=== PATIENT | female | born 1960 | race Caucasian/White ===

== ENCOUNTER → 2021-05-23 | Outpatient (CLI) | payer SELFPAY ==
[~2021-05-23] MED LIST: REGADENOSON 0.4 MG/5 ML SYR (LEXISCAN) IV ONE
[2021-05-23] MEDS: CATHETER FLUSH 10 ML SYR IVP PRN ×2 (11:58→13:17)
[2021-05-23 13:01] VITALS: BP 146/75
--- NOTE | 2021-05-24 08:00 | NUCLEAR STRESS TEST ---
REGADENOSON NUCLEAR STRESS Date of procedure: 05/23/2021. Primary care provider: None Admitting physician: Balwinder Fernández Jr., MD. INDICATION: Abnormal electrocardiogram. BASELINE ELECTROCARDIOGRAM: Sinus rhythm with possible old anterior myocardial infarction. STRESS TEST PROCEDURE: The patient was administered 0.4 mg of intravenous Regadenoson. The resting heart rate was 85 bpm and the peak heart rate was 100 bpm. The resting blood pressure was 124/68 mmHg and the minimum blood pressure was 124/68 mmHg. This represents a normal heart rate and a blunted blood pressure response to Regadenoson. The test was stopped due to the protocol. There was no chest discomfort during the test. There were no arrhythmias during the test. There were no significant stress induced electrocardiogram changes. NUCLEAR PROCEDURE: The patient was administered 10.7 mCi of intravenous technetium 99m Tetrofosmin at rest for the rest images. The patient was subsequently administered 30.9 mCi of intravenous technetium 99m Tetrofosmin at peak stress for the stress images. Following an appropriate wait after each injection, imaging was obtained. The images were subsequently processed and reformatted in the usual views. Gated imaging was obtained. The image quality was adequate with a mild degree of gastrointestinal attenuation artifact. CT attenuation correction was used as a adjunct to standard imaging. Both the corrected and uncorrected images were reviewed for interpretation. NUCLEAR RESULTS: There was a small, mild intensity, fixed distal anterior defect with no evidence of inducible ischemia. There was normal left ventricular chamber size with an end-diastolic volume of 35 mL and an end-systolic volume of 6 mL. There was no evidence of transient ischemic dilatation. The TID ratio was 0.95. There was normal wall motion in all segments with a calculated ejection fraction of 83%. IMPRESSION: 1. Normal heart rate and a blunted blood pressure response to regadenoson. 2. There was no chest discomfort, arrhythmias, or electrocardiogram changes during the test. 3. There was a small, mild intensity, fixed distal anterior defect with no evidence of inducible ischemia. 4. There was normal wall motion in all segments with a calculated ejection frac tion of 83%. 5. This is an abnormal result although represents a low risk for possible future coronary ischemic events. Certain portions of this document may have been dictated utilizing voice recognition technology. Inherent to this technology, typographical and grammatical errors may exist. As much as I am diligent to identify and correct these mistakes, some errors may remain in the document. BALWINDER FERNÁNDEZ JR, MD May 24, 2021 08:00
== END ==
LOC: CARD 11:30
PROVIDERS: ATTEND Internal Medicine Cardiovascular Disease
DX: I51.7 Cardiomegaly (principal); I35.0 Nonrheumatic aortic (valve) stenosis
CPT/HCPCS: 78452; 93017; 93306; A9502

== ENCOUNTER 2022-10-09 18:09 | Observation (INO) | payer OTHER ==
[~2022-10-09] VITALS: Ht 170.2 cm; Wt 114.4 kg
[~2022-10-09 18:09] MED LIST changes: +ACET-2267 PO; +ALBU8.5H6 INH; +AMIO200T65 PO; +ASCO100024 PO; +ASPI-1238 PO; +ATOR20TA66 PO; +BUDE10.22 IH; +BUME2TAB7 PO; +CANA1TAB2 PO; +DULA0.75 SQ; +METO-333 PO; +OMEP-401 PO; +OXYC1TAB87 PO; +POTA-185 PO; -REGADENOSON 0.4 MG/5 ML SYR (LEXISCAN) IV ONE; +SENN-109 PO; +VILA40TA PO; +WARF-48 PO; +WARF7.5T3 PO
[2022-10-09] MEDS ORDERED: ANTACID SUSP 30 ML UDC (MYLANTA) PO PRN (18:30)
[2022-10-09] MEDS ORDERED: diphenhydrAMINE 25 MG TAB (BENADRYL) PO PRN (18:30)
[2022-10-09] MEDS ORDERED: ACETAMINOPHEN 325 MG TABLET PO PRN (18:30)
[2022-10-09] MEDS ORDERED: NS IV 500 ML 500 ML IV PRN (18:30)
[2022-10-09] MEDS ORDERED: MELATONIN 3 MG TABLET PO PRN (18:30)
[2022-10-09] MEDS ORDERED: polyethylene glycoL POWDER 17 GM (MIRALAX) PACK PO PRN (18:30)
[2022-10-09] MEDS ORDERED: LACTULOSE SYRUP 10GM/15ML (ENULOSE) 30ML UDC PO PRN (18:30)
[2022-10-09] MEDS ORDERED: MILK OF MAGNESIA 400 MG/5 ML 30 ML UDC PO PRN (18:30)
[2022-10-09] MEDS ORDERED: HYDROmorphone 2 MG/ML VIAL (DILAUDID) IV PRN (18:30)
[2022-10-09] MEDS ORDERED: diphenhydrAMINE 50 MG/ML INJ (BENADRYL) IVP PRN (18:30)
[2022-10-09] MEDS ORDERED: BISACODYL 10 MG SUPPOSITORY PR PRN (18:30)
[2022-10-09] MEDS ORDERED: ONDANSETRON 4 MG/2 ML (SDV) Z0FRAN IV PRN (18:30)
[2022-10-09] MEDS ORDERED: CALCIUM CARBONATE 500 MG CHEW TABLET PO PRN (18:30)
[2022-10-09] MEDS ORDERED: ONDANSETRON 4 MG (ZOFRAN) ORAL DISSOLVE TAB PO PRN (18:30)
[2022-10-09 19:25] VITALS: BP 101/85
[2022-10-09] MEDS: dilTIAZem DRIP PRE-MIX 125 ML IV SCH (19:25)
--- NOTE | 2022-10-09 20:07 | Tele-ICU Consult ---
History of Present Illness History of Present Illness Date Seen by Provider: Oct 09, 2022 Time Seen by Provider: 19:38 Date of Admission 10/09/22 History of Present Illness (Tele-ICU Physician , Progress Note ) Service provided via interactive audio and video tele[employer] and [employer] E-CARE system to a patient admitted to ICU bed in [facility]. Patient is seen today due to persistent need of ICU care Available chart/ vitals / labs / Images reviewed Video assessment done using teleICU camera, rest of exam as per RN She is a 62-year-old female with past medical history of hypertension, type 2 diabetes mellitus who recently underwent earlier this month mitral valve replacement for severe mitral stenosis and congestive heart failure at [facility] and postoperatively she developed productive atrial fibrillation. She was started on amiodarone and warfarin. Subsequently yesterday she is admitted to the inpatient rehab and via [facility]. Today she is transferred to ICU because of development of atrial fibrillation with rapid ventricular rate. She is started on IV Cardizem drip. Still her heart rate is about 120/min. She is in no acute distress Impression 1. Atrial fibrillation with rapid ventricular rate 2. S/p mitral valve replacement 3. Type 2 diabetes mellitus 4. Hyperlipidemia Recommendations 1. Continue Cardizem drip and if necessary will give IV digoxin 2. Cardiology consultation. 3. Diabetes management per primary care. 4. Continue warfarin. Coordination of care with primary care physician and bedside consultants. I am remotely monitoring this patient from Tele icu station in [place]. I am unable to do the bedside exam, and history/physical and pertinent information is taken from other notes in the computer and bedside staff. Certain portions of this document may have been dictated utilizing voice recognition technology such as tvCompasson. Inherent to this technology, typographical and grammatical errors may exist. As much as I am diligent to identify and correct to these mistakes, some errors may remain in the document. Critical care time devoted to this patient today is approximately is-30 minutes Allergies and Home Medications Allergies Coded Allergies: No Allergy Information Available (Unverified , 05/23/21) Home Medications Acetaminophen 500 Mg Tablet, 1,000 MG PO Q6H, (Reported) Albuterol Sulfate 90 Mcg Hfa.aer.ad, 1-2 PUFF INH TID PRN for SHORTNESS OF BREATH, (Reported) Amiodarone HCl 200 Mg Tablet, 400 MG PO DAILY, (Reported) 1/3 TAKE FOR 14 DAYS- THEN DECREASE TO 200MG TWICE DAILY X 14 DAYS, THEN 200MG DAILY X 14 DAYS TAKE WITH FOOD Amiodarone HCl 200 Mg Tablet, 200 MG PO BID, (Reported) 2/3 TAKE FOR 14 DAYS THEN DECREASE TO 200MG DAILY X 14 DAYS TAKE WITH FOOD Amiodarone HCl 200 Mg Tablet, 200 MG PO DAILY, (Reported) 3/3 TAKE FOR 14 DAYS TAKE WITH FOOD Ascorbic Acid 1,000 Mg Tablet, 1,000 MG PO DAILY, (Reported) Aspirin 81 Mg Tablet.dr, 81 MG PO DAILY, (Reported) Atorvastatin Calcium 20 Mg Tablet, 20 MG PO HS, (Reported) Budesonide/Formoterol Fumarate 80 Mcg-4.5 Mcg/Actuation Hfa.aer.ad, 2 PUFF IH BID, (Reported) Bumetanide 2 Mg Tablet, 2 MG PO BID, (Reported) Canagliflozin/Metformin HCl 50 Mg-1,000 Mg Tablet, 1 EACH PO BID, (Reported) Dulaglutide 0.75 Mg/0.5 Ml Pen.injctr, 0.75 MG SQ WEEK, (Reported) Metoprolol Tartrate 25 Mg Tablet, 12.5 MG PO BID, (Reported) TAKES OF A 25MG TAB Omeprazole 20 Mg Tab.rap.dr, 20 MG PO DAILY, (Reported) TAKE BEFORE BREAKFAST Oxycodone HCl/Acetaminophen 1 Each Tablet, 1-2 TAB PO Q6H PRN for PAIN-MODERATE (5-7), (Reported) Potassium Chloride 10 Meq Tablet.er, 10 MEQ PO BID, (Reported) Sennosides/Docusate Sodium 8.6 Mg-50 Mg Tablet, 2 EACH PO BID, (Reported) Vilazodone Hydrochloride 40 Mg Tablet, 40 MG PO DAILY, (Reported) Warfarin Sodium 5 Mg Tablet, 5 MG PO ESQUIVEL,SA, (Reported) Warfarin Sodium 7.5 Mg Tablet, 7.5 MG PO MO,,WE,TH,FR, (Reported) Past Medical/Social/Family Hx Immunizations Up To Date Tetanus Booster (TDap): Unknown Hepatitis A: No Hepatitis B: Yes TB Skin Test: None Current Status Primary Language: [place] Irish Review of Systems Constitutional: see HPI Focused Exam Height, Weight, BMI Height: '" Weight: lbs. oz. kg; 41.59 BMI Method: Exam Exam Patient acknowledged, consented, and participated in this virtual visit which was conducted using real time audio/video Vital Signs Date Time Temp Pulse Resp B/P (MAP) Pulse Ox O2 Delivery O2 Flow Rate FiO2 10/09/22 19:25 130 101/85 10/09/22 19:00 130 16 101/85 (90) 96 Room Air 10/09/22 18:45 130 16 72/53 (59) 96 Room Air 10/09/22 18:30 123 14 88/68 (75) 98 Room Air 10/09/22 18:20 132 10/09/22 18:20 132 10/09/22 18:15 115 14 124/110 (115) 98 Room Air Height & Weight Height: '" Weight: lbs. oz. kg; 41.59 BMI Method: General Appearance: Anxious, Obese Assessment/Plan Assessment/Plan as above Critical Care: Critically Ill Patient Time spent with patient (mins): 30 SNEHA GOLDSTEIN MD Oct 09, 2022 20:07
--- NOTE | 2022-10-09 21:00 | Consultation-Cardiology ---
HPI-Cardiology Cardiology Consultation: Date of Consultation 10/09/22 Date of Admission Attending Physician Admitting Physician Admitting Physician: Kenna Grant DO Attending Physician: Kenna Grant DO Consulting Physician Gary LANGFORD MD HPI: Time Seen by a Provider: 20:59 Chief Complaint: Tachycardia This is a 62-year-old lady who has history of severe mitral stenosis and congestive heart failure and underwent mitral valve replacement a week ago at [facility]. She does have history of postoperative atrial fibrillation. She has a history of diabetes, hypertension and hyperlipidemia. She had an episode of atrial fibrillation with RVR and currently still in RVR. She was started on IV Cardizem and transferred to the ICU. Review of Systems-Cardiology Review of Systems Constitutional: no symptoms reported Eyes: no symptoms reported Ears/Nose/Throat: no symptoms reported Respiratory: SOB with excertion Cardiovascular: irregular heart rate Gastrointestinal: no symptoms reported Genitourinary: no symptoms reported Musculoskeletal: no symptoms reported Skin: no symptoms reported Psychiatric/Neurological: no symptoms reported Hematologic: no symptoms reported HPA-Burnlh-Sqhzxg Hx Patient Social History Smoking Status: Former Smoker Alcohol Use?: No Pt feels they are or have been: No Past Medical History PMH As described under Assessment. Allergies and Home Medications Allergies Coded Allergies: No Allergy Information Available (Unverified , 05/23/21) Patient Home Medication List Home Medication List Reviewed: Yes Acetaminophen (Tylenol Extra Strength) 500 Mg Tablet, 1,000 MG PO Q6H, (Reported) Entered as Reported by: BREANN SMALL on 10/08/22930 Last Action: Held Albuterol Sulfate (Ventolin Hfa) 90 Mcg Hfa.aer.ad, 1-2 PUFF INH TID PRN for SHORTNESS OF BREATH, (Reported) Entered as Reported by: BREANN SMALL on 10/08/22930 Last Action: Continued Amiodarone HCl (Amiodarone HCl) 200 Mg Tablet, 400 MG PO DAILY, (Reported) Entered as Reported by: BREANN SMALL on 10/08/22930 Last Action: Held Amiodarone HCl (Amiodarone HCl) 200 Mg Tablet, 200 MG PO BID, (Reported) Entered as Reported by: BREANN SMALL on 10/08/22930 Last Action: Held Amiodarone HCl (Amiodarone HCl) 200 Mg Tablet, 200 MG PO DAILY, (Reported) Entered as Reported by: BREANN SMALL on 10/08/22930 Last Action: Held Ascorbic Acid (Vitamin C) 1,000 Mg Tablet, 1,000 MG PO DAILY, (Reported) Entered as Reported by: BREANN SMALL on 10/08/22930 Last Action: Held Aspirin (Aspirin EC) 81 Mg Tablet.dr, 81 MG PO DAILY, (Reported) Entered as Reported by: BREANN SMALL on 10/08/22930 Last Action: Continued Atorvastatin Calcium (Atorvastatin Calcium) 20 Mg Tablet, 20 MG PO HS, (Reported) Entered as Reported by: BREANN SMALL on 10/08/22930 Last Action: Continued Budesonide/Formoterol Fumarate (Symbicort 80-4.5 Mcg Inhaler) 80 Mcg-4.5 Mcg/Actuation Hfa.aer.ad, 2 PUFF IH BID, (Reported) Entered as Reported by: BREANN SMALL on 10/08/22930 Last Action: Converted Bumetanide (Bumetanide) 2 Mg Tablet, 2 MG PO BID, (Reported) Entered as Reported by: BREANN SMALL on 10/08/22930 Last Action: Converted Canagliflozin/Metformin HCl (Invokamet 50-1,000 mg Tablet) 50 Mg-1,000 Mg Tablet, 1 EACH PO BID, (Reported) Entered as Reported by: BREANN SMALL on 10/08/22930 Last Action: Converted Dulaglutide (Trulicity) 0.75 Mg/0.5 Ml Pen.injctr, 0.75 MG SQ WEEK, (Reported) Entered as Reported by: BREANN SMALL on 10/08/22930 Last Action: Converted Metoprolol Tartrate (Metoprolol Tartrate) 25 Mg Tablet, 12.5 MG PO BID, (Reported) Entered as Reported by: BREANN SMALL on 10/08/22930 Last Action: Held Omeprazole (Omeprazole) 20 Mg Tab.rap.dr, 20 MG PO DAILY, (Reported) Entered as Reported by: BREANN SMALL on 10/08/22930 Last Action: Converted Oxycodone HCl/Acetaminophen (Percocet 5-325 mg Tablet) 1 Each Tablet, 1-2 TAB PO Q6H PRN for PAIN-MODERATE (5-7), (Reported) Entered as Reported by: BREANN SMALL on 10/08/22930 Last Action: Continued Potassium Chloride (K-Tab ER) 10 Meq Tablet.er, 10 MEQ PO BID, (Reported) Entered as Reported by: BREANN SMALL on 10/08/22930 Last Action: Continued Sennosides/Docusate Sodium (Senna-S Tablet) 8.6 Mg-50 Mg Tablet, 2 EACH PO BID, (Reported) Entered as Reported by: BREANN SMALL on 10/08/22930 Last Action: Continued Vilazodone Hydrochloride (Viibryd) 40 Mg Tablet, 40 MG PO DAILY, (Reported) Entered as Reported by: BRAENN SMALL on 10/08/22930 Last Action: Converted Warfarin Sodium (Warfarin Sodium) 5 Mg Tablet, 5 MG PO ESQUIVEL,SA, (Reported) Entered as Reported by: BREANN SMALL on 10/08/22930 Last Action: Held Warfarin Sodium (Warfarin Sodium) 7.5 Mg Tablet, 7.5 MG PO MO,TU,WE,TH,FR, (Reported) Entered as Reported by: BREANN SMALL on 10/08/22930 Last Action: Held Exam Vital Signs Vital Signs Date Time Temp Pulse Resp B/P (MAP) Pulse Ox O2 Delivery O2 Flow Rate FiO2 10/09/22 21:06 115 96 21 10/09/22 20:54 Room Air 10/09/22 19:25 101/85 10/09/22 19:00 16 Physical Exam Constitutional: No respiratory distress. Chest: Clear to auscultation bilaterally. CVS: Irregularly irregular rhythm. No murmur. Neuro: Alert and oriented. Abdomen: Protuberant. Labs Laboratory Tests Test 10/09/22 21:10 Range/Units Glucometer 144 H 70-110 MG/DL ECG Impression ECG Initial ECG Impression: Atrial Fibrillation w/RVR A/P-Cardiology Assessment/Admission Diagnosis afib rvr h/o mvr Mitral stenosis, History of congestive heart failure, Diabetes, Hypertension, Hyperlipidemia Plan afib rvr - cardizem infusion, Continue warfarin. Patient is already on amiodarone. Continue to follow. If patient continues to have atrial fibrillation she may be a candidate for transesophageal echocardiogram assisted cardioversion. history of MVR, Chronic oral anticoagulation, continue warfarin. Diabetes, hypertension, hyperlipidemia: Deferred to the primary team. Gary LANGFORD MD Oct 09, 2022 21:00
[2022-10-09] MEDS: DOCUSATE SODIUM 100 MG (COLACE) CAP PO SCH (21:14)
[2022-10-09] MEDS: SENNOSIDES 8.6 MG (SENOKOT) TAB PO SCH (21:15)
[2022-10-09] MEDS: inSUlin ASPART (NovoLOG) 1 UNIT/0.01 ML (CHARGE PER UNIT) SC SCH (21:15)
[2022-10-09] MEDS ORDERED: oxyCODONE/APAP 5/325MG (PERCOCET 5) TABLET PO PRN (21:15)
[2022-10-09] MEDS ORDERED: RT-ALBUTEROL SULF 2.5 MG/3 ML PRE-MIX VIAL INH PRN ×2 (21:15)
[2022-10-09] MEDS ORDERED: NON-FORMULARY MEDICATION 1 EA EA (Dulaglutide (Trulicity) 0.75 MG) SQ SCH (21:15)
[2022-10-10 05:45] LABS: BASOPHILS # (AUTO) 0.1 10^3/uL (0.0-0.1); BASOPHILS % (AUTO) 1 % (0-10); EOSINOPHILS # (AUTO) 0.6 10^3/uL (0.0-0.3); EOSINOPHILS % (AUTO) 6 % (0-10); HEMATOCRIT 30 % (35-52); HEMOGLOBIN 8.6 g/dL (11.5-16.0); LYMPHOCYTES # (AUTO) 2.3 10^3/uL (1.0-4.0); LYMPHOCYTES % (AUTO) 20 % (12-44); MEAN CORPUSCULAR HEMOGLOBIN 26 pg (25-34); MEAN CORPUSCULAR HGB CONC 29 g/dL (32-36); MEAN CORPUSCULAR VOLUME 89 fL (80-99); MEAN PLATELET VOLUME 9.3 fL (9.0-12.2); MONOCYTES # (AUTO) 1.1 10^3/uL (0.0-1.0); MONOCYTES % (AUTO) 10 % (0-12); NEUTROPHILS # (AUTO) 7.1 10^3/uL (1.8-7.8); NEUTROPHILS % (AUTO) 63 % (42-75); PLATELET COUNT 308 10^3/uL (130-400); WHITE BLOOD COUNT 11.3 10^3/uL (4.3-11.0)
[2022-10-10 05:54] LABS: ALBUMIN 3.3 GM/DL (3.2-4.5); POTASSIUM 4.4 MMOL/L (3.6-5.0)
[2022-10-10 05:55] LABS: CALCIUM 9.2 MG/DL (8.5-10.1)
[2022-10-10 05:57] LABS: TOTAL PROTEIN 6.3 GM/DL (6.4-8.2)
[2022-10-10 05:58] LABS: INR 2.2 (0.8-1.4); PROTHROMBIN TIME PATIENT 24.6 SEC (12.2-14.7)
[2022-10-10 05:59] LABS: BILIRUBIN,TOTAL 0.7 MG/DL (0.1-1.0)
[2022-10-10 06:00] LABS: CREATININE SERUM 1.12 MG/DL (0.60-1.30)
[2022-10-10 06:03] LABS: MAGNESIUM 1.5 MG/DL (1.6-2.4)
[2022-10-10] MEDS: inSUlin ASPART (NovoLOG) 1 UNIT/0.01 ML (CHARGE PER UNIT) SC SCH ×4 (06:15→20:53)
[2022-10-10] MEDS: POTASSIUM CL 10MEQ/50ML IVPB 50 ML IV SCH (06:15)
[2022-10-10] MEDS: MAGNESIUM 1 GM/100 ML IVPB 100 ML IV SCH ×4 (06:15→09:36)
[2022-10-10] MEDS: KCL 20 MEQ TAB (K-DUR) PO SCH (06:15)
[2022-10-10] MEDS: PANTOPRAZOLE 20 MG TABLET (PROTONIX) PO SCH (06:30)
[2022-10-10] MEDS ORDERED: FLUTICASONE/VILANTEROL 100 MCG 14'S (BREO) IH SCH (08:00)
[2022-10-10] MEDS: ASPIRIN enteric coated 81MG TABLET PO SCH (08:05)
[2022-10-10] MEDS: DOCUSATE SODIUM 100 MG (COLACE) CAP PO SCH ×2 (08:05→20:53)
[2022-10-10] MEDS: SENNA W/DOCUSATE (SENOKOT S) TABLET PO SCH ×2 (08:06→20:53)
[2022-10-10] MEDS: BUMETANIDE 1 MG TABLET PO SCH ×2 (08:06→20:39)
[2022-10-10] MEDS: EMPAGLIFLOZIN 10 MG TABLET (JARDIANCE) PO SCH (08:07)
[2022-10-10] MEDS: KCL 10 MEQ TAB (MICRO K) PO SCH ×2 (08:07→20:38)
[2022-10-10] MEDS: metFORMIN 500 MG (GLUCOPHAGE) TAB PO SCH ×2 (08:07→18:11)
[2022-10-10] MEDS: SENNOSIDES 8.6 MG (SENOKOT) TAB PO SCH ×2 (08:07→20:53)
[2022-10-10] MEDS: dilTIAZem120 MG (CARDIZEM CD) CAP PO SCH (08:09)
[2022-10-10] MEDS ORDERED: METFORMIN HCL PO SCH (09:00)
[2022-10-10] MEDS ORDERED: [UNRECOGNIZED DRUG - OTHER] PO SCH (09:00)
[2022-10-10] MEDS ORDERED: NON-FORMULARY MEDICATION 1 EA EA (Vilazodone Hydrochloride (Viibryd) 40 MG) PO SCH (09:00)
[2022-10-10] MEDS ORDERED: CANAGLIFLOZIN PO SCH (09:00)
[2022-10-10] MEDS ORDERED: CANA1TAB8 PO (10:57)
[2022-10-10] MEDS ORDERED: IRON SUCROSE 200 MG/10 ML (VENOFER) VIAL IV NR (11:00)
--- NOTE | 2022-10-10 11:26 | Tele-ICU Progress Note ---
Subjective Date Seen by a Provider: Oct 10, 2022 Time Seen by a Provider: 11:26 Subjective/Events-last exam (Tele-ICU Physician , Progress Note ) Service provided via interactive audio and video telecommunications E-CARE system to a patient admitted to ICU bed in [facility]. Patient is seen today due to persistent need of ICU care Available chart/ vitals / labs / Images reviewed Video assessment done using teleICU camera, rest of exam as per RN Discussed with RN Events overnight : Afebrile hemodynamically stable Respiratory - ra I/O = + Drips: Pressors- no Hospital course: This is a 62-year-old lady who has history of severe mitral stenosis and congestive heart failure and underwent mitral valve replacement a week ago at [facility]. She does have history of postoperative atrial fibrillation. She has a history of diabetes, hypertension and hyperlipidemia. She had an episode of atrial fibrillation with RVR - currently off IV Cardizem, on PO meds h/o MVR History of congestive heart failure, DM II = controlled wound service for sternal wound care VTE Prophylaxis: coumadin Stress Ulcer Prophylaxis: na Plans in collaboration with bedside consultants and IM MDs. Discussed with RN to reach out if any questions or concerns Case and care daily discussed on multidisciplinary rounds ( RN, PharmD, Bundle Helper , Respiratory Therapy, handy worker ) A total of _10minutes of critical care time was devoted to this patient today, required to treat and/or prevent further deterioration of critical care condition ( as above ) . I am remotely monitoring this patient from [place] state. I am unable to do the bedside exam, and history/physical and pertinent information is taken from other notes in the computer and bedside staff. Sepsis Event Evaluation Height, Weight, BMI Height: '" Weight: lbs. oz. kg; 41.59 BMI Method: Exam Exam Patient acknowledged, consented, and participated in this virtual visit which was conducted using real time audio/video Vital Signs Date Time Temp Pulse Resp B/P (MAP) Pulse Ox O2 Delivery O2 Flow Rate FiO2 10/10/22 11:00 85 97 Room Air 10/10/22 10:00 85 97 Room Air 10/10/22 09:18 97 Room Air 10/10/22 09:00 81 94 Room Air 10/10/22 08:16 36.3 10/10/22 08:00 85 92 Room Air 10/10/22 08:00 98 Room Air 10/10/22 07:00 85 111/75 (87) 95 Room Air 10/10/22 07:00 82 10/10/22 06:00 79 100 Room Air 10/10/22 05:00 80 124/70 (88) 100 Room Air 10/10/22 04:00 81 118/71 (87) 100 Room Air 10/10/22 04:00 36.4 10/10/22 04:00 100 Room Air 10/10/22 03:00 80 124/75 (91) 100 Room Air 10/10/22 02:39 72 10/10/22 02:00 125 112/76 (88) 100 Room Air 10/10/22 01:00 124 10/10/22 01:00 118 116/81 (93) 100 Room Air 10/10/22 00:00 36.3 10/10/22 00:00 116 114/77 (89) 100 Room Air 10/09/22 23:00 118 100/69 (79) 100 Room Air 10/09/22 22:00 124 14 100/63 (75) 99 Room Air 10/09/22 21:06 115 96 21 10/09/22 21:00 131 19 100/70 (80) 99 Room Air 10/09/22 20:54 Room Air 10/09/22 20:00 130 16 103/78 (86) 99 Room Air 10/09/22 19:25 130 101/85 10/09/22 19:00 130 16 101/85 (90) 96 Room Air 10/09/22 19:00 135 10/09/22 18:45 130 16 72/53 (59) 96 Room Air 10/09/22 18:30 123 14 88/68 (75) 98 Room Air 10/09/22 18:20 132 10/09/22 18:20 132 10/09/22 18:15 115 14 124/110 (115) 98 Room Air 10/09/22 18:11 96 Room Air I & O 10/10/22 07:00 Intake Total 485 ml Balance 485 ml Height & Weight Height: '" Weight: lbs. oz. kg; 41.59 BMI Method: General Appearance: Anxious, Obese Results Lab Laboratory Tests 10/10/22 05:27 Assessment/Plan Assessment/Plan 1 MAGDY BUNCH MD Oct 10, 2022 11:26
--- NOTE | 2022-10-10 12:35 | Short Stay Summary ---
LOLA MANNING 10/10/22 1235: History of Present Illness History of Present Illness Reason for visit/HPI Aleah Epperson is a 62yo F who was a patient on the inpatient rehab unit before developing palpitations and tachycardia on the evening of 10/09. She was found to be in afib with RVR and transferred to the ICU. 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 She was hospitalized at in late August after experiencing progressively worsening shortness of breath, swelling, and weight gain. She was extensively volume overloaded and required dialysis as an inpatient. She was initially diagnosed with mitral valve stenosis in may of 2021 and was started on warfarin due to level of stenosis but was lost to follow up. Her symptoms began worsening in early August 2022 which ultimately lead to her admission to . She required hemodynamic support while hospitalized and undergoing dialysis as well with milrinone and vasopressin. After successful volume normalization and achieving hemodynamic stability she underwent tissue Mitral valve replacement on September 30. She developed atrial fibrillation after her procedure and was started on amiodarone with conversion to sinus rhythm. Today she reports much improvement of her shortness of breath and peripheral edema since her hospitalization. She denies chest pain aside from tenderness at her surgical site. She denies palpitations. Reports her lower extremity edema is back to prehospital baseline, trace edema present bilaterally. She is tolerating diet without N/V/D. Denies fevers and chills." She was doing well on the inpatient rehab unit and progressing with therapy until the evening of 10/09 when she began to feel palpitations and tachycardia. She called the nurse who confirmed a fast heart rate. EKG shortly after revealed her to be in atrial fibrillation with rapid ventricular response, rate in the 130s. Arrangements were made for her to be transferred to the ICU. She was started on a cardizem drip and converted to sinus rhythm with rate in the 80s overnight. On my exam she remained in sinus rhythm with rate anywhere from 75- 85. The drip was stopped and she was given her first dose of oral cardizem this morning. She denies any more palpitations and does not have chest pain, shortness of breath, lightheadedness, syncope, or fever/chills. She has a history of afib with rvr around her mitral valve replacement surgery. She does not believe she was cardioverted at that time. She has been on an amiodarone taper since with no other episodes of palpitations. She is in good spirits this morning but is somewhat dejected because she thought she was improving in rehab and does not want any more setbacks. She is tolerating her diet without N/V/D. Denies any abdominal pain. She reports willingness to return to inpatient rehab soon pending insurance approval. Date of Admission Oct 09, 2022 at 18:09 Date of Discharge Oct 10, 2022 Time Seen by Provider: 11:05 Attending Physician Admitting Physician Admitting Physician: Kenna Guajardo DO Attending Physician: Kenna Guajardo DO Consult Allergies and Home Medications Allergies Coded Allergies: No Allergy Information Available (Unverified , 05/23/21) Patient Home Medication List Home Medication List Reviewed: Yes Acetaminophen (Tylenol Extra Strength) 500 Mg Tablet, 1,000 MG PO Q6H, (Reported) Entered as Reported by: BREANN SMALL on 10/08/22930 Last Action: Held Albuterol Sulfate (Ventolin Hfa) 90 Mcg Hfa.aer.ad, 1-2 PUFF INH TID PRN for SHORTNESS OF BREATH, (Reported) Entered as Reported by: BREANN SMALL on 10/08/22930 Last Action: Continued Amiodarone HCl (Amiodarone HCl) 200 Mg Tablet, 400 MG PO DAILY, (Reported) Entered as Reported by: BREANN SMALL on 10/08/22930 Last Action: Held Amiodarone HCl (Amiodarone HCl) 200 Mg Tablet, 200 MG PO BID, (Reported) Entered as Reported by: BREANN SMALL on 10/08/22930 Last Action: Held Amiodarone HCl (Amiodarone HCl) 200 Mg Tablet, 200 MG PO DAILY, (Reported) Entered as Reported by: BREANN SMALL on 10/08/22930 Last Action: Held Ascorbic Acid (Vitamin C) 1,000 Mg Tablet, 1,000 MG PO DAILY, (Reported) Entered as Reported by: BREANN SMALL on 10/08/22930 Last Action: Held Aspirin (Aspirin EC) 81 Mg Tablet.dr, 81 MG PO DAILY, (Reported) Entered as Reported by: BREANN SMALL on 10/08/22930 Last Action: Continued Atorvastatin Calcium (Atorvastatin Calcium) 20 Mg Tablet, 20 MG PO HS, (Reported) Entered as Reported by: BREANN SMALL on 10/08/22930 Last Action: Continued Budesonide/Formoterol Fumarate (Symbicort 80-4.5 Mcg Inhaler) 80 Mcg-4.5 Mcg/Actuation Hfa.aer.ad, 2 PUFF IH BID, (Reported) Entered as Reported by: BREANN SMALL on 10/08/22930 Last Action: Converted Bumetanide (Bumetanide) 2 Mg Tablet, 2 MG PO BID, (Reported) Entered as Reported by: BREANN SMALL on 10/08/22930 Last Action: Converted Canagliflozin/Metformin HCl (Invokamet Xr 150-1,000 mg Tab) 150 Mg-1,000 Mg Tab.bp.24h, 1 EA PO DAILY, (Reported) Entered as Reported by: BREANN SMALL on 10/10/221056 Last Action: Reviewed Dulaglutide (Trulicity) 0.75 Mg/0.5 Ml Pen.injctr, 0.75 MG SQ WEEK, (Reported) Entered as Reported by: BREANN SMALL on 10/08/22930 Last Action: Converted Metoprolol Tartrate (Metoprolol Tartrate) 25 Mg Tablet, 12.5 MG PO BID, (Reported) Entered as Reported by: BREANN SMALL on 10/08/22930 Last Action: Held Omeprazole (Omeprazole) 20 Mg Tab.rap., 20 MG PO DAILY, (Reported) Entered as Reported by: BREANN SMALL on 10/08/22930 Last Action: Converted Oxycodone HCl/Acetaminophen (Percocet 5-325 mg Tablet) 1 Each Tablet, 1-2 TAB PO Q6H PRN for PAIN-MODERATE (5-7), (Reported) Entered as Reported by: BREANN SMALL on 10/08/22930 Last Action: Continued Potassium Chloride (K-Tab ER) 10 Meq Tablet.er, 10 MEQ PO BID, (Reported) Entered as Reported by: BREANN SMALL on 10/08/22930 Last Action: Continued Sennosides/Docusate Sodium (Senna-S Tablet) 8.6 Mg-50 Mg Tablet, 2 EACH PO BID, (Reported) Entered as Reported by: BREANN SMALL on 10/08/22930 Last Action: Continued Vilazodone Hydrochloride (Viibryd) 40 Mg Tablet, 40 MG PO DAILY, (Reported) Entered as Reported by: BREANN SMALL on 10/08/22930 Last Action: Converted Warfarin Sodium (Warfarin Sodium) 5 Mg Tablet, 5 MG PO ESQUIVEL,SA, (Reported) Entered as Reported by: BREANN SMALL on 10/08/22930 Last Action: Held Warfarin Sodium (Warfarin Sodium) 7.5 Mg Tablet, 7.5 MG PO MO,,,,FR, (Reported) Entered as Reported by: BREANN SMALL on 10/08/22930 Last Action: Held Discontinued Medications Canagliflozin/Metformin HCl (Invokamet 50-1,000 mg Tablet) 50 Mg-1,000 Mg Tablet, 1 EACH PO BID, (Reported) Discontinued Reason: No Longer Taking Entered as Reported by: BREANN SMALL on 10/08/22930 Last Action: Discontinued Past Wwthsjr-Tottty-Pwbumy Hx Patient Social History Smoking Status: Former Smoker Alcohol Use?: No Pt feels they are or have been: No Surgeries Open Heart Surgery Respiratory COPD, Sleep Apnea Currently Using CPAP: No Currently Using BIPAP: No Cardiovascular Atrial Fibrillation, Coronary Artery Disease, High Cholesterol, Hypertension, Valvular Heart Disease Neurological Neuropathy Genitourinary Bladder Infection Gastrointestinal Gastroesophageal Reflux Musculoskeletal Arthritis, Chronic Back Pain Endocrine Endocrine Disorders: Diabetes, Non-Insulin dep Psychosocial Behavioral Health Disorders: Anxiety, Depression Family Medical History Significant Family History: Heart Disease Review of Systems Constitutional: No chills, No diaphoresis, No fever EENTM: No hearing loss, No vision loss, No hoarseness Respiratory: No cough, No short of breath, No wheezing Cardiovascular: No chest pain; Hx of Intervention; No palpitations, No syncope Gastrointestinal: No abdominal pain; loss of appetite; No nausea, No vomiting Genitourinary: No dysuria, No hematuria Skin: No change in color, No change in hair/nails Psychiatric/Neurological: Denies Headache, Denies Pre-Existing Deficit, Denies Weakness Physical Exam Vital Signs Vital Signs - First Documented 10/09/22 10/09/22 10/09/22 10/10/22 18:11 18:15 21:06 00:00 Temp 36.3 Pulse 115 Resp 14 B/P (MAP) 124/110 (115) Pulse Ox 96 O2 Delivery Room Air FiO2 21 Capillary Refill : Height, Weight, BMI Height: '" Weight: lbs. oz. kg; 41.59 BMI Method: General Appearance: No Apparent Distress, WD/WN, Anxious, Obese HEENT: PERRL/EOMI, Moist Mucous Membranes Neck: Non Tender, Supple Respiratory: Lungs Clear, Normal Breath Sounds, No Accessory Muscle Use, No Respiratory Distress Cardiovascular: Regular Rate, Rhythm, Normal Peripheral Pulses Gastrointestinal: Non Tender, Soft; No Distended Rectal: Deferred Extremity: Pedal Edema (2+ bl lower extremity) Neurologic/Psychiatric: Alert, Oriented x3, Normal Mood/Affect Skin: Normal Color, Warm/Dry Short Stay Diagnosis Discharge Diagnosis-Short Stay Admission Diagnosis: Atrial Fibrillation with Rapid Ventricular Response CHF myopathy Recent Mitral Valve replacement Final Discharge Diagnosis: Afib with RVR CHF myopathy Recent mitral valve replacement Conclusion Labs Laboratory Tests 10/09/22 21:10: Glucometer 144H 10/10/22 05:27: White Blood Count 11.3H, Red Blood Count 3.31L, Hemoglobin 8.6L, Hematocrit 30L, Mean Corpuscular Volume 89, Mean Corpuscular Hemoglobin 26, Mean Corpuscular Hemoglobin Concent 29L, Red Cell Distribution Width 27.1H, Platelet Count 308, Mean Platelet Volume 9.3, Immature Granulocyte % (Auto) 1, Neutrophils (%) (Auto) 63, Lymphocytes (%) (Auto) 20, Monocytes (%) (Auto) 10, Eosinophils (%) (Auto) 6, Basophils (%) (Auto) 1, Neutrophils # (Auto) 7.1, Lymphocytes # (Auto) 2.3, Monocytes # (Auto) 1.1H, Eosinophils # (Auto) 0.6H, Basophils # (Auto) 0.1, Immature Granulocyte # (Auto) 0.1, Prothrombin Time 24.6H, INR Comment 2.2H, Sodium Level 137, Potassium Level 4.4, Chloride Level 100, Carbon Dioxide Level 25, Anion Gap 12, Blood Urea Nitrogen 40H, Creatinine 1.12, Estimat Glomerular Filtration Rate 56, BUN/Creatinine Ratio 36, Glucose Level 118H, Calcium Level 9.2, Corrected Calcium 9.8, Phosphorus Level 4.0, Magnesium Level 1.5L, Total Bilirubin 0.7, Aspartate Amino Transf (AST/SGOT) 28, Alanine Aminotransferase (ALT/SGPT) 16, Alkaline Phosphatase 60, Total Protein 6.3L, Albumin 3.3 10/10/22 10:43: Glucometer 104 Conclusion/Plan Atrial fibrillation with RVR Cardiology consulted appreciate recs Rate in the 130s when admitted to ICU Started on cardizem drip with conversion to normal sinus rhythm Drip stopped, started on Cardizem 120mg PO daily remains sinus Anticoagulated with warfarin, recently increased to 6.5 daily due to subtherapuetic INR monitor INR, goal of 2.5-3.5 due to mitral valve replacement Continue tele Was in the middle of an amiodarone taper after her first bout of afib with RVR at earlier this month CHF myopathy S/p MVR Chronic HFpEF Intense PT/OT Social work following for discharge planning Currently hemodynamically stable, monitor vitals Continue Bumex 2mg BID, metoprolol 12.5mg BID, aspirin 81 mg daily, atorvastatin 20mg daily Monitor CBC, CMP, PT, INR Encourage LE elevation and LE compression Sodium restricted diet 2gm per day Sternal wound precautions HTN HLD home meds as above T2DM Continue canagliflozin/metfomin, and dulaglutide accuchecks SSI COPD JF Satting well on room air Does not tolerate CPAP machine use Daily Breo Ellipta Albuterol prn Depression continue viibryd 40mg daily Diet- carb consistent with sodium restriction DVT ppx- anticoagulated with warfarin, continue to monitor INR Code- full code Dispo- attempting to readmit to inpatient rehab. Waiting on transfer vs having to complete insurance acceptance process over again KENNA GUAJARDO DO 10/10/222050: History of Present Illness History of Present Illness Reason for visit/HPI CC: AF RVR Date of Admission 10/10/22 Date of Discharge na Time Seen by Provider: 11:00 Allergies and Home Medications Allergies Coded Allergies: No Allergy Information Available (Unverified , 05/23/21) Patient Home Medication List Home Medication List Reviewed: Yes Acetaminophen (Tylenol Extra Strength) 500 Mg Tablet, 1,000 MG PO Q6H, (Reported) Entered as Reported by: BREANN SMALL on 10/08/22930 Last Action: Held Albuterol Sulfate (Ventolin Hfa) 90 Mcg Hfa.aer.ad, 1-2 PUFF INH TID PRN for SHORTNESS OF BREATH, (Reported) Entered as Reported by: BREANN SMALL on 10/08/22930 Last Action: Continued Amiodarone HCl (Amiodarone HCl) 200 Mg Tablet, 400 MG PO DAILY, (Reported) Entered as Reported by: BREANN SMALL on 10/08/22930 Last Action: Held Amiodarone HCl (Amiodarone HCl) 200 Mg Tablet, 200 MG PO BID, (Reported) Entered as Reported by: BREANN SMALL on 10/08/22930 Last Action: Held Amiodarone HCl (Amiodarone HCl) 200 Mg Tablet, 200 MG PO DAILY, (Reported) Entered as Reported by: BREANN SMALL on 10/08/22930 Last Action: Held Ascorbic Acid (Vitamin C) 1,000 Mg Tablet, 1,000 MG PO DAILY, (Reported) Entered as Reported by: RBEANN SMALL on 10/08/22930 Last Action: Held Aspirin (Aspirin EC) 81 Mg Tablet.dr, 81 MG PO DAILY, (Reported) Entered as Reported by: BREANN SMALL on 10/08/22930 Last Action: Continued Atorvastatin Calcium (Atorvastatin Calcium) 20 Mg Tablet, 20 MG PO HS, (Reported) Entered as Reported by: BREANN SMALL on 10/08/22930 Last Action: Continued Budesonide/Formoterol Fumarate (Symbicort 80-4.5 Mcg Inhaler) 80 Mcg-4.5 Mcg/Actuation Hfa.aer.ad, 2 PUFF IH BID, (Reported) Entered as Reported by: BREANN SMALL on 10/08/22930 Last Action: Converted Bumetanide (Bumetanide) 2 Mg Tablet, 2 MG PO BID, (Reported) Entered as Reported by: BREANN SMALL on 10/08/22930 Last Action: Converted Canagliflozin/Metformin HCl (Invokamet Xr 150-1,000 mg Tab) 150 Mg-1,000 Mg Tab.bp.24h, 1 EA PO DAILY, (Reported) Entered as Reported by: BREANN SMALL on 10/10/22 1057 Last Action: Reviewed Dulaglutide (Trulicity) 0.75 Mg/0.5 Ml Pen.injctr, 0.75 MG SQ WEEK, (Reported) Entered as Reported by: BREANN SMALL on 10/08/22930 Last Action: Converted Metoprolol Tartrate (Metoprolol Tartrate) 25 Mg Tablet, 12.5 MG PO BID, (Reported) Entered as Reported by: BREANN SMALL on 10/08/22930 Last Action: Held Omeprazole (Omeprazole) 20 Mg Tab.rap.dr, 20 MG PO DAILY, (Reported) Entered as Reported by: BREANN SMALL on 10/08/22930 Last Action: Converted Oxycodone HCl/Acetaminophen (Percocet 5-325 mg Tablet) 1 Each Tablet, 1-2 TAB PO Q6H PRN for PAIN-MODERATE (5-7), (Reported) Entered as Reported by: BREANN SMALL on 10/08/22930 Last Action: Continued Potassium Chloride (K-Tab ER) 10 Meq Tablet.er, 10 MEQ PO BID, (Reported) Entered as Reported by: BREANN SMALL on 10/08/22930 Last Action: Continued Sennosides/Docusate Sodium (Senna-S Tablet) 8.6 Mg-50 Mg Tablet, 2 EACH PO BID, (Reported) Entered as Reported by: BREANN SMALL on 10/08/22930 Last Action: Continued Vilazodone Hydrochloride (Viibryd) 40 Mg Tablet, 40 MG PO DAILY, (Reported) Entered as Reported by: BREANN SMALL on 10/08/22930 Last Action: Converted Warfarin Sodium (Warfarin Sodium) 5 Mg Tablet, 5 MG PO ESQUIVEL,SA, (Reported) Entered as Reported by: BREANN SMALL on 10/08/22930 Last Action: Held Warfarin Sodium (Warfarin Sodium) 7.5 Mg Tablet, 7.5 MG PO MO,,WE,TH,FR, (Reported) Entered as Reported by: BREANN SMALL on 10/08/22930 Last Action: Held Discontinued Medications Canagliflozin/Metformin HCl (Invokamet 50-1,000 mg Tablet) 50 Mg-1,000 Mg Tablet, 1 EACH PO BID, (Reported) Discontinued Reason: No Longer Taking Entered as Reported by: BREANN HORNZANT on 10/08/22 0931 Last Action: Discontinued Past Qiwdpgp-Ebyfbt-Voqgkm Hx Patient Social History Marrital Status: single Review of Systems Constitutional: see HPI Cardiovascular: palpitations Physical Exam General Appearance: No Apparent Distress, WD/WN, Chronically ill Eyes: Bilateral Eye Normal Inspection, Bilateral Eye PERRL, Bilateral Eye EOMI HEENT: PERRL/EOMI, Normal ENT Inspection, Pharynx Normal Neck: Full Range of Motion, Normal Inspection, Non Tender, Supple, Carotid Bruit Respiratory: Chest Non Tender, Lungs Clear, Normal Breath Sounds, No Accessory Muscle Use, No Respiratory Distress Cardiovascular: Regular Rate, Rhythm, No Edema, No Gallop, No JVD, No Murmur, Normal Peripheral Pulses Gastrointestinal: Normal Bowel Sounds, No Organomegaly, No Pulsatile Mass, Non Tender, Soft Back: Normal Inspection, No CVA Tenderness, No Vertebral Tenderness Extremity: Normal Capillary Refill, Normal Inspection, Normal Range of Motion, Non Tender, No Calf Tenderness, No Pedal Edema Neurologic/Psychiatric: Alert, Oriented x3, No Motor/Sensory Deficits, Normal Mood/Affect Skin: Normal Color, Warm/Dry Lymphatic: No Adenopathy Short Stay Diagnosis Discharge Diagnosis-Short Stay Admission Diagnosis: AF RVR Final Discharge Diagnosis: AF RVR Conclusion Conclusion/Plan ICU Cardiology management is appreciated Supervisory-Addendum Brief Verification & Attestation Participated in pt care: history, MDM, physical Personally performed: exam, history, MDM, supervision of care Care discussed with: Medical Student Procedures: n/a Results interpretation: Verified all documentation Verification and Attestation of Medical Student E/M Service A medical student performed and documented this service in my presence. I reviewed and verified all information documented by the medical student and made modifications to such information, when appropriate. I personally performed the physical exam and medical decision making. Kenna Guajardo Oct 10, 2022,20:50 LOLA MANNING Oct 10, 2022 12:35 KENNA GUAJARDO DO Oct 10, 2022 20:51
--- NOTE | 2022-10-10 15:09 | Cardiology Progress Note ---
Cardiology SOAP Progress Note Subjective: No further palpitations. Objective: I&O/Vital Signs 10/10/22 10/10/22 10/10/22 10/10/22 04:00 04:00 04:00 05:00 Temp 36.4 Pulse 81 80 B/P (MAP) 118/71 (87) 124/70 (88) Pulse Ox 100 100 100 O2 Delivery Room Air Room Air Room Air 10/10/22 10/10/22 10/10/22 10/10/22 06:00 07:00 07:00 08:00 Pulse 79 82 85 B/P (MAP) 111/75 (87) Pulse Ox 100 95 98 O2 Delivery Room Air Room Air Room Air 10/10/22 10/10/22 10/10/22 10/10/22 08:00 08:16 09:00 09:18 Temp 36.3 Pulse 85 81 Pulse Ox 92 94 97 O2 Delivery Room Air Room Air Room Air 10/10/22 10/10/22 10/10/22 10/10/22 10:00 11:00 12:00 12:00 Pulse 85 85 90 Pulse Ox 97 97 98 97 O2 Delivery Room Air Room Air Room Air Room Air 10/10/22 10/10/22 10/10/22 10/10/22 12:13 12:19 13:00 14:00 Temp 36.2 Pulse 94 87 89 Pulse Ox 99 100 O2 Delivery Room Air Room Air 10/10/22 15:00 Pulse 85 Pulse Ox 97 O2 Delivery Room Air 10/10/22 00:00 Intake Total 240 ml Balance 240 ml Constitutional: AAO x 3 Respiratory: lungs clear to auscultation Cardiovascular: regular rate-rhythm Gastrointestional: soft Neurologic/Psychiatric: no motor/sensory deficits, alert, normal mood/affect, oriented x 3 Skin: normal color Results/Procedures: Labs Laboratory Tests 10/09/22 21:10: Glucometer 144H 10/10/22 05:27: White Blood Count 11.3H, Red Blood Count 3.31L, Hemoglobin 8.6L, Hematocrit 30L, Mean Corpuscular Volume 89, Mean Corpuscular Hemoglobin 26, Mean Corpuscular Hemoglobin Concent 29L, Red Cell Distribution Width 27.1H, Platelet Count 308, Mean Platelet Volume 9.3, Immature Granulocyte % (Auto) 1, Neutrophils (%) (Auto) 63, Lymphocytes (%) (Auto) 20, Monocytes (%) (Auto) 10, Eosinophils (%) (Auto) 6, Basophils (%) (Auto) 1, Neutrophils # (Auto) 7.1, Lymphocytes # (Auto) 2.3, Monocytes # (Auto) 1.1H, Eosinophils # (Auto) 0.6H, Basophils # (Auto) 0.1, Immature Granulocyte # (Auto) 0.1, Prothrombin Time 24.6H, INR Comment 2.2H, Sodium Level 137, Potassium Level 4.4, Chloride Level 100, Carbon Dioxide Level 25, Anion Gap 12, Blood Urea Nitrogen 40H, Creatinine 1.12, Estimat Glomerular Filtration Rate 56, BUN/Creatinine Ratio 36, Glucose Level 118H, Calcium Level 9.2, Corrected Calcium 9.8, Phosphorus Level 4.0, Magnesium Level 1.5L, Total Bilirubin 0.7, Aspartate Amino Transf (AST/SGOT) 28, Alanine Aminotransferase (ALT/SGPT) 16, Alkaline Phosphatase 60, Total Protein 6.3L, Albumin 3.3 10/10/22 10:43: Glucometer 104 A/P: Assessment/Dx: afib rvr h/o mvr Mitral stenosis, History of congestive heart failure, Diabetes, Hypertension, Hyperlipidemia Plan: Paroxysmal atrial fibrillation: Converted to sinus rhythm. Change Cardizem infusion to Cardizem CD1 20 mg daily. Start amiodarone 200 mg daily. Continue warfarin. Follow-up as an outpatient with cardiology. history of MVR, Chronic oral anticoagulation, continue warfarin. Diabetes, hypertension, hyperlipidemia: Deferred to the primary team. Thank you for your consultation. Please call me if you have any questions. Benny Desai MD, FACP, FACC, FSCAI, FHRS, CCDS Interventional Cardiology Cardiac Electrophysiology Vascular Medicine and Endovascular Interventions Gary DESAI MD Oct 10, 2022 15:09
[2022-10-10] MEDS: dilTIAZem DRIP PRE-MIX 125 ML IV SCH (16:52)
[2022-10-10] MEDS ORDERED: warFARin 7.5 MG (COUMADIN) TAB PO SCH (18:00)
[2022-10-10] MEDS ORDERED: warFARin 4 MG (COUMADIN) TAB PO SCH (18:00)
[2022-10-10] MEDS ORDERED: warFARin 2.5 MG (COUMADIN) TAB PO SCH (18:00)
[2022-10-10] MEDS ORDERED: ALPRAZolam 0.25 MG TABLET PO PRN (19:45)
[2022-10-10] MEDS ORDERED: ALPRAZolam 0.25 MG TABLET ONE (20:24)
[2022-10-11 05:19] LABS: BASOPHILS # (AUTO) 0.1 10^3/uL (0.0-0.1); BASOPHILS % (AUTO) 1 % (0-10); EOSINOPHILS # (AUTO) 0.7 10^3/uL (0.0-0.3); EOSINOPHILS % (AUTO) 6 % (0-10); HEMATOCRIT 29 % (35-52); HEMOGLOBIN 8.4 g/dL (11.5-16.0); LYMPHOCYTES # (AUTO) 2.2 10^3/uL (1.0-4.0); LYMPHOCYTES % (AUTO) 18 % (12-44); MEAN CORPUSCULAR HEMOGLOBIN 26 pg (25-34); MEAN CORPUSCULAR HGB CONC 29 g/dL (32-36); MEAN CORPUSCULAR VOLUME 89 fL (80-99); MEAN PLATELET VOLUME 9.1 fL (9.0-12.2); MONOCYTES # (AUTO) 1.1 10^3/uL (0.0-1.0); MONOCYTES % (AUTO) 9 % (0-12); NEUTROPHILS # (AUTO) 7.8 10^3/uL (1.8-7.8); NEUTROPHILS % (AUTO) 65 % (42-75); PLATELET COUNT 296 10^3/uL (130-400); WHITE BLOOD COUNT 11.9 10^3/uL (4.3-11.0)
[2022-10-11 05:26] LABS: INR 2.9 (0.8-1.4); PROTHROMBIN TIME PATIENT 30.2 SEC (12.2-14.7)
[2022-10-11 05:37] LABS: ALBUMIN 3.2 GM/DL (3.2-4.5); BILIRUBIN,TOTAL 0.7 MG/DL (0.1-1.0); CALCIUM 9.3 MG/DL (8.5-10.1); CREATININE SERUM 1.02 MG/DL (0.60-1.30); MAGNESIUM 1.7 MG/DL (1.6-2.4); PHOSPHORUS 3.7 MG/DL (2.3-4.7); POTASSIUM 4.5 MMOL/L (3.6-5.0); TOTAL PROTEIN 6.4 GM/DL (6.4-8.2)
[2022-10-11] MEDS: KCL 20 MEQ TAB (K-DUR) PO SCH (05:40)
[2022-10-11] MEDS: POTASSIUM CL 10MEQ/50ML IVPB 50 ML IV SCH (05:41)
[2022-10-11] MEDS: inSUlin ASPART (NovoLOG) 1 UNIT/0.01 ML (CHARGE PER UNIT) SC SCH ×2 (05:42→11:30)
[2022-10-11] MEDS: PANTOPRAZOLE 20 MG TABLET (PROTONIX) PO SCH (05:51)
[2022-10-11] MEDS: MAGNESIUM 1 GM/100 ML IVPB 100 ML IV SCH ×5 (05:51→11:17)
[2022-10-11] MEDS: dilTIAZem120 MG (CARDIZEM CD) CAP PO SCH (08:49)
[2022-10-11] MEDS: EMPAGLIFLOZIN 10 MG TABLET (JARDIANCE) PO SCH (08:50)
[2022-10-11] MEDS: metFORMIN 500 MG (GLUCOPHAGE) TAB PO SCH (08:50)
[2022-10-11] MEDS: KCL 10 MEQ TAB (MICRO K) PO SCH (08:51)
[2022-10-11] MEDS: ASPIRIN enteric coated 81MG TABLET PO SCH (08:51)
[2022-10-11] MEDS: BUMETANIDE 1 MG TABLET PO SCH (08:51)
[2022-10-11] MEDS: DOCUSATE SODIUM 100 MG (COLACE) CAP PO SCH (08:55)
[2022-10-11] MEDS ORDERED: DILT-27 PO (08:56)
[2022-10-11] MEDS: SENNA W/DOCUSATE (SENOKOT S) TABLET PO SCH (08:56)
[2022-10-11] MEDS ORDERED: WARF4TAB3 PO (08:56)
[2022-10-11] MEDS ORDERED: WRF2.5T PO (08:56)
[2022-10-11] MEDS: SENNOSIDES 8.6 MG (SENOKOT) TAB PO SCH (08:56)
[2022-10-11] MEDS ORDERED: AMIO200T65 PO (08:56)
[2022-10-11] MEDS ORDERED: AMIODARONE 200 MG TABLET PO SCH (09:00)
--- NOTE | 2022-10-11 09:00 | Discharge Summary ---
Diagnosis/Chief Complaint Date of Admission Oct 09, 2022 at 18:09 Date of Discharge Discharge Date: Oct 11, 2022 Discharge Diagnosis Atrial fibrillation with RVR Cardiology consulted appreciate recs Rate in the 130s when admitted to ICU Started on cardizem drip with conversion to normal sinus rhythm Drip stopped, started on Cardizem 120mg PO daily remains sinus Anticoagulated with warfarin, recently increased to 6.5 daily due to subtherapuetic INR monitor INR, goal of 2.5-3.5 due to mitral valve replacement Continue tele Was in the middle of an amiodarone taper after her first bout of afib with RVR at earlier this month CHF myopathy S/p MVR Chronic HFpEF Intense PT/OT Social work following for discharge planning Currently hemodynamically stable, monitor vitals Continue Bumex 2mg BID, metoprolol 12.5mg BID, aspirin 81 mg daily, atorvastatin 20mg daily Monitor CBC, CMP, PT, INR Encourage LE elevation and LE compression Sodium restricted diet 2gm per day Sternal wound precautions HTN HLD home meds as above T2DM Continue canagliflozin/metfomin, and dulaglutide accuchecks SSI COPD JF Satting well on room air Does not tolerate CPAP machine use Daily Breo Ellipta Albuterol prn Depression continue viibryd 40mg daily Diet- carb consistent with sodium restriction DVT ppx- anticoagulated with warfarin, continue to monitor INR Code- full code Dispo- attempting to readmit to inpatient rehab. Waiting on transfer vs having to complete insurance acceptance process over again Reason Hospital Visit CC: AF RVR Discharge Summary Discharge Physical Examination Allergies: Coded Allergies: No Allergy Information Available (Unverified , 05/23/21) Vitals & I&Os Vital Signs Date Time Temp Pulse Resp B/P (MAP) Pulse Ox O2 Delivery O2 Flow Rate FiO2 10/11/22 12:14 94 10/11/22 10:00 121/73 (85) 94 Nasal Cannula 2.00 10/11/22 08:55 36.5 10/11/22 05:00 20 10/09/22 21:06 21 General Appearance: Alert, Oriented X3, Cooperative Respiratory: Clear to Auscultation Cardiovascular: Regular Rate Psych/Mental Status: Mental Status NL Hospital Course Was the Problem List Reviewed?: Yes Reason for visit/HPI Aleah Epperson is a 62yo F who was a patient on the inpatient rehab unit before developing palpitations and tachycardia on the evening of 10/09. She was found to be in afib with RVR and transferred to the ICU. 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 She was hospitalized at in late August after experiencing progressively worsening shortness of breath, swelling, and weight gain. She was extensively volume overloaded and required dialysis as an inpatient. She was initially diagnosed with mitral valve stenosis in may of 2021 and was started on warfarin due to level of stenosis but was lost to follow up. Her symptoms began worsening in early August 2022 which ultimately lead to her admission to . She required hemodynamic support while hospitalized and undergoing dialysis as well with milrinone and vasopressin. After successful volume normalization and achieving hemodynamic stability she underwent tissue Mitral valve replacement on September 30. She developed atrial fibrillation after her procedure and was started on amiodarone with conversion to sinus rhythm. Today she reports much improvement of her shortness of breath and peripheral edema since her hospitalization. She denies chest pain aside from tenderness at her surgical site. She denies palpitations. Reports her lower extremity edema is back to prehospital baseline, trace edema present bilaterally. She is tolerating diet without N/V/D. Denies fevers and chills." She was doing well on the inpatient rehab unit and progressing with therapy until the evening of 10/09 when she began to feel palpitations and tachycardia. She called the nurse who confirmed a fast heart rate. EKG shortly after revealed her to be in atrial fibrillation with rapid ventricular response, rate in the 130s. Arrangements were made for her to be transferred to the ICU. She was started on a cardizem drip and converted to sinus rhythm with rate in the 80s overnight. On my exam she remained in sinus rhythm with rate anywhere from 75- 85. The drip was stopped and she was given her first dose of oral cardizem this morning. She denies any more palpitations and does not have chest pain, shor tness of breath, lightheadedness, syncope, or fever/chills. She has a history of afib with rvr around her mitral valve replacement surgery. She does not believe she was cardioverted at that time. She has been on an amiodarone taper since with no other episodes of palpitations. She is in good spirits this morning but is somewhat dejected because she thought she was improving in rehab and does not want any more setbacks. She is tolerating her diet without N/V/D. Denies any abdominal pain. She reports willingness to return to inpatient rehab soon pending insurance approval. Uneventful course after she was transferred to ICU and DC from ARU due to AF RVR. Cardizem drip helped return NSR. Overall she did well and had no other events and she was DC to ARU. Labs (last 24 hrs) Laboratory Tests 10/09/22 21:10: Glucometer 144H 10/10/22 05:27: White Blood Count 11.3H, Red Blood Count 3.31L, Hemoglobin 8.6L, Hematocrit 30L, Mean Corpuscular Volume 89, Mean Corpuscular Hemoglobin 26, Mean Corpuscular Hemoglobin Concent 29L, Red Cell Distribution Width 27.1H, Platelet Count 308, Mean Platelet Volume 9.3, Immature Granulocyte % (Auto) 1, Neutrophils (%) (Auto) 63, Lymphocytes (%) (Auto) 20, Monocytes (%) (Auto) 10, Eosinophils (%) (Auto) 6, Basophils (%) (Auto) 1, Neutrophils # (Auto) 7.1, Lymphocytes # (Auto) 2.3, Monocytes # (Auto) 1.1H, Eosinophils # (Auto) 0.6H, Basophils # (Auto) 0.1, Immature Granulocyte # (Auto) 0.1, Prothrombin Time 24.6H, INR Comment 2.2H, Sodium Level 137, Potassium Level 4.4, Chloride Level 100, Carbon Dioxide Level 25, Anion Gap 12, Blood Urea Nitrogen 40H, Creatinine 1.12, Estimat Glomerular Filtration Rate 56, BUN/Creatinine Ratio 36, Glucose Level 118H, Calcium Level 9.2, Corrected Calcium 9.8, Phosphorus Level 4.0, Magnesium Level 1.5L, Total Bilirubin 0.7, Aspartate Amino Transf (AST/SGOT) 28, Alanine Aminotransferase (ALT/SGPT) 16, Alkaline Phosphatase 60, Total Protein 6.3L, Albumin 3.3 10/10/22 10:43: Glucometer 104 10/10/22 16:35: Glucometer 101 10/10/22 20:36: Glucometer 119H 10/11/22 05:03: White Blood Count 11.9H, Red Blood Count 3.22L, Hemoglobin 8.4L, Hematocrit 29L, Mean Corpuscular Volume 89, Mean Corpuscular Hemoglobin 26, Mean Corpuscular Hemoglobin Concent 29L, Red Cell Distribution Width 26.9H, Platelet Count 296, Mean Platelet Volume 9.1, Immature Granulocyte % (Auto) 1, Neutrophils (%) (Auto) 65, Lymphocytes (%) (Auto) 18, Monocytes (%) (Auto) 9, Eosinophils (%) (Auto) 6, Basophils (%) (Auto) 1, Neutrophils # (Auto) 7.8, Lymphocytes # (Auto) 2.2, Monocytes # (Auto) 1.1H, Eosinophils # (Auto) 0.7H, Basophils # (Auto) 0.1, Immature Granulocyte # (Auto) 0.1, Prothrombin Time 30.2H, INR Comment 2.9H, Sodium Level 139, Potassium Level 4.5, Chloride Level 101, Carbon Dioxide Level 27, Anion Gap 11, Blood Urea Nitrogen 32H, Creatinine 1.02, Estimat Glomerular Filtration Rate 62, BUN/Creatinine Ratio 31, Glucose Level 97, Calcium Level 9.3, Corrected Calcium 9.9, Phosphorus Level 3.7, Magnesium Level 1.7, Total Bilirubin 0.7, Aspartate Amino Transf (AST/SGOT) 26, Alanine Aminotransferase (ALT/SGPT) 16, Alkaline Phosphatase 63, Total Protein 6.4, Albumin 3.2 10/11/22 11:06: Glucometer 102 Pending Labs Laboratory Tests 10/09/22 21:10: Glucometer 144 10/10/22 05:27: White Blood Count 11.3, Red Blood Count 3.31, Hemoglobin 8.6, Hematocrit 30, Mean Corpuscular Volume 89, Mean Corpuscular Hemoglobin 26, Mean Corpuscular Hemoglobin Concent 29, Red Cell Distribution Width 27.1, Platelet Count 308, Mean Platelet Volume 9.3, Immature Granulocyte % (Auto) 1, Neutrophils (%) (Auto) 63, Lymphocytes (%) (Auto) 20, Monocytes (%) (Auto) 10, Eosinophils (%) (Auto) 6, Basophils (%) (Auto) 1, Neutrophils # (Auto) 7.1, Lymphocytes # (Auto) 2.3, Monocytes # (Auto) 1.1, Eosinophils # (Auto) 0.6, Basophils # (Auto) 0.1, Immature Granulocyte # (Auto) 0.1, Prothrombin Time 24.6, INR Comment 2.2, Sodium Level 137, Potassium Level 4.4, Chloride Level 100, Carbon Dioxide Level 25, Anion Gap 12, Blood Urea Nitrogen 40, Creatinine 1.12, Estimat Glomerular Filtration Rate 56, BUN/Creatinine Ratio 36, Glucose Level 118, Calcium Level 9.2, Corrected Calcium 9.8, Phosphorus Level 4.0, Magnesium Level 1.5, Total Bilirubin 0.7, Aspartate Amino Transf (AST/SGOT) 28, Alanine Aminotransferase (ALT/SGPT) 16, Alkaline Phosphatase 60, Total Protein 6.3, Albumin 3.3 10/10/22 10:43: Glucometer 104 10/10/22 16:35: Glucometer 101 10/10/22 20:36: Glucometer 119 10/11/22 05:03: White Blood Count 11.9, Red Blood Count 3.22, Hemoglobin 8.4, Hematocrit 29, M angel Corpuscular Volume 89, Mean Corpuscular Hemoglobin 26, Mean Corpuscular Hemoglobin Concent 29, Red Cell Distribution Width 26.9, Platelet Count 296, Mean Platelet Volume 9.1, Immature Granulocyte % (Auto) 1, Neutrophils (%) (Auto) 65, Lymphocytes (%) (Auto) 18, Monocytes (%) (Auto) 9, Eosinophils (%) (Auto) 6, Basophils (%) (Auto) 1, Neutrophils # (Auto) 7.8, Lymphocytes # (Auto) 2.2, Monocytes # (Auto) 1.1, Eosinophils # (Auto) 0.7, Basophils # (Auto) 0.1, Immature Granulocyte # (Auto) 0.1, Prothrombin Time 30.2, INR Comment 2.9, Sodium Level 139, Potassium Level 4.5, Chloride Level 101, Carbon Dioxide Level 27, Anion Gap 11, Blood Urea Nitrogen 32, Creatinine 1.02, Estimat Glomerular Filtration Rate 62, BUN/Creatinine Ratio 31, Glucose Level 97, Calcium Level 9.3, Corrected Calcium 9.9, Phosphorus Level 3.7, Magnesium Level 1.7, Total Bilirubin 0.7, Aspartate Amino Transf (AST/SGOT) 26, Alanine Aminotransferase (ALT/SGPT) 16, Alkaline Phosphatase 63, Total Protein 6.4, Albumin 3.2 10/11/22 11:06: Glucometer 102 Discharge Home Medications: Active Scripts Active Diltiazem 24Hr ER (Diltiazem HCl) 120 Mg Cap.er.24h 120 Mg PO DAILY 30 Days Amiodarone HCl 200 Mg Tablet 200 Mg PO DAILY Warfarin Sodium 2.5 Mg Tablet 2.5 Mg PO DAILY@1800 30 Days Warfarin Sodium 4 Mg Tablet 4 Mg PO DAILY@1800 30 Days Reported Invokamet Xr 150-1,000 mg Tab (Canagliflozin/Metformin HCl) 150 Mg-1,000 Mg Tab.bp.24h 1 Ea PO DAILY Viibryd (Vilazodone Hydrochloride) 40 Mg Tablet 40 Mg PO DAILY Omeprazole 20 Mg Tab.rap.dr 20 Mg PO DAILY TAKE BEFORE BREAKFAST Trulicity (Dulaglutide) 0.75 Mg/0.5 Ml Pen.injctr 0.75 Mg SQ WEEK Bumetanide 2 Mg Tablet 2 Mg PO BID Symbicort 80-4.5 Mcg Inhaler (Budesonide/Formoterol Fumarate) 80 Mcg-4.5 Mcg/Actuation Hfa.aer.ad 2 Puff IH BID Atorvastatin Calcium 20 Mg Tablet 20 Mg PO HS Aspirin EC (Aspirin) 81 Mg Tablet.dr 81 Mg PO DAILY Vitamin C (Ascorbic Acid) 1,000 Mg Tablet 1,000 Mg PO DAILY Ventolin Hfa (Albuterol Sulfate) 90 Mcg Hfa.aer.ad 1-2 Puff INH TID PRN Senna-S Tablet (Sennosides/Docusate Sodium) 8.6 Mg-50 Mg Tablet 2 Each PO BID K-Tab ER (Potassium Chloride) 10 Meq Tablet.er 10 Meq PO BID Percocet 5-325 mg Tablet (Oxycodone HCl/Acetaminophen) 1 Each Tablet 1-2 Tab PO Q6H PRN MDD 6 TABS Tylenol Extra Strength (Acetaminophen) 500 Mg Tablet 1,000 Mg PO Q6H Instructions to patient/family Please see electronic discharge instructions given to patient. DARI GUAJARDO DO Oct 11, 2022 09:00
--- NOTE | 2022-10-11 15:27 | Cardiology Progress Note ---
Cardiology SOAP Progress Note Subjective: Continues to be in sinus rhythm Objective: I&O/Vital Signs 10/11/22 10/11/22 10/11/22 10/11/22 04:00 04:12 05:00 06:00 Temp 35.9 Pulse 84 87 84 Resp 20 B/P (MAP) 113/58 (74) 114/69 (83) 117/59 (78) Pulse Ox 100 99 99 91 O2 Delivery Nasal Cannula Room Air Nasal Cannula Nasal Cannula O2 Flow Rate 2.00 2.00 2.00 10/11/22 10/11/22 10/11/22 10/11/22 07:00 07:19 08:00 08:00 Pulse 85 84 96 B/P (MAP) 120/71 (89) Pulse Ox 98 96 99 O2 Delivery Nasal Cannula Room Air Nasal Cannula O2 Flow Rate 2.00 2.00 10/11/22 10/11/22 10/11/22 10/11/22 08:55 09:00 10:00 12:00 Temp 36.5 Pulse 94 93 B/P (MAP) 92/65 (73) 121/73 (85) Pulse Ox 96 94 97 O2 Delivery Room Air Nasal Cannula Nasal Cannula Room Air O2 Flow Rate 2.00 2.00 10/11/22 10/11/22 10/11/22 12:00 12:14 13:20 Temp 36.4 Pulse 94 B/P (MAP) 10/11/22 00:00 Intake Total 1300 ml Balance 1300 ml Constitutional: AAO x 3 Respiratory: lungs clear to auscultation Cardiovascular: regular rate-rhythm Gastrointestional: soft Neurologic/Psychiatric: no motor/sensory deficits, alert, normal mood/affect, oriented x 3 Skin: normal color Results/Procedures: Labs Laboratory Tests 10/10/22 16:35: Glucometer 101 10/10/22 20:36: Glucometer 119H 10/11/22 05:03: White Blood Count 11.9H, Red Blood Count 3.22L, Hemoglobin 8.4L, Hematocrit 29L, Mean Corpuscular Volume 89, Mean Corpuscular Hemoglobin 26, Mean Corpuscular Hemoglobin Concent 29L, Red Cell Distribution Width 26.9H, Platelet Count 296, Mean Platelet Volume 9.1, Immature Granulocyte % (Auto) 1, Neutrophils (%) (Auto) 65, Lymphocytes (%) (Auto) 18, Monocytes (%) (Auto) 9, Eosinophils (%) (Auto) 6, Basophils (%) (Auto) 1, Neutrophils # (Auto) 7.8, Lymphocytes # (Auto) 2.2, Monocytes # (Auto) 1.1H, Eosinophils # (Auto) 0.7H, Basophils # (Auto) 0.1, Immature Granulocyte # (Auto) 0.1, Prothrombin Time 30.2H, INR Comment 2.9H, Sodium Level 139, Potassium Level 4.5, Chloride Level 101, Carbon Dioxide Level 27, Anion Gap 11, Blood Urea Nitrogen 32H, Creatinine 1.02, Estimat Glomerular Filtration Rate 62, BUN/Creatinine Ratio 31, Glucose Level 97, Calcium Level 9.3, Corrected Calcium 9.9, Phosphorus Level 3.7, Magnesium Level 1.7, Total Bilirubin 0.7, Aspartate Amino Transf (AST/SGOT) 26, Alanine Aminotransferase (ALT/SGPT) 16, Alkaline Phosphatase 63, Total Protein 6.4, Albumin 3.2 10/11/22 11:06: Glucometer 102 A/P: Assessment/Dx: afib rvr -converted to sinus rhythm h/o mvr Mitral stenosis, History of congestive heart failure, Diabetes, Hypertension, Hyperlipidemia Plan: Paroxysmal atrial fibrillation: Converted to sinus rhythm. Change Cardizem infusion to Cardizem CD 120 mg daily. amiodarone 200 mg daily. Continue warfarin. Follow-up as an outpatient with cardiology. Patient does not want to travel to [place] or [place]. Recommend following with either Dr. Arriaga or Dr. De La Cruz in [place]. history of MVR, Chronic oral anticoagulation, continue warfarin. Diabetes, hypertension, hyperlipidemia: Deferred to the primary team. Gary LANGFORD MD Oct 11, 2022 15:26
[2022-10-16] MEDS ORDERED: AMIO200T65 PO (05:34)
[2022-10-16] MEDS ORDERED: WARF4TAB3 PO (05:34)
[2022-10-16] MEDS ORDERED: WRF2.5T PO (05:34)
[2022-10-16] MEDS ORDERED: POTA-185 PO (05:34)
[2022-10-16] MEDS ORDERED: ATOR20TA66 PO (05:34)
[2022-10-16] MEDS ORDERED: DILT-27 PO (05:34)
[2022-10-16] MEDS ORDERED: TRM50T PO (05:34)
[2022-10-16] MEDS ORDERED: BUME2TAB7 PO (05:34)
[2022-10-16] MEDS ORDERED: OXYC1TAB87 PO (05:34)
[2022-10-16] MEDS ORDERED: ASPI-1238 PO (05:34)
== END 2022-10-11 08:53 ==
LOC: ICU 18:09 → UNDOADMOB 18:09 → ICU 18:18 → UNDODISOB 10-11 08:53
PROVIDERS: ADMIT Internal Medicine; ATTEND Internal Medicine
DX: I48.91 Unspecified atrial fibrillation (principal); I11.0 Hypertensive heart disease with heart failure; I50.22 Chronic systolic (congestive) heart failure; G72.9 Myopathy, unspecified; E78.5 Hyperlipidemia, unspecified; E11.9 Type 2 diabetes mellitus without complications; J44.9 Chronic obstructive pulmonary disease, unspecified; G47.33 Obstructive sleep apnea (adult) (pediatric); F32.A Depression, unspecified; Z79.899 Other long term (current) drug therapy; Z79.84 Long term (current) use of oral hypoglycemic drugs; Z95.4 Presence of other heart-valve replacement; Z87.891 Personal history of nicotine dependence; Z95.2 Presence of prosthetic heart valve; Z86.79 Personal history of other diseases of the circulatory system
CPT/HCPCS: 36415; 80053; 82947; 83735; 84100; 85025; 85610; 94640; 96365; 96366; 96375; 96376; G0378

== ENCOUNTER 2022-10-11 09:48 | Inpatient (IN) | payer OTHER ==
[~2022-10-11] VITALS: Ht 170 cm; Wt 109.0 kg
--- NOTE | 2022-10-11 09:00 | PM&R Post Admission Assessment ---
PM&R Date of Visit: Oct 11, 2022 Time of Visit: 14:00 History of Present Illness CC: CHF myopathy HPI: This is a 62yoWF who was just admitted to ARU and day after required ICU transfer due to AF RVR who now returns for rehab. See below for details: Aleah Epperson is a 62yo F who was a patient on the inpatient rehab unit before developing palpitations and tachycardia on the evening of 10/09. She was found to be in afib with RVR and transferred to the ICU. HPI from admission to inpatient rehab on 10/08 "Aelah Epperson is a 62yoF who presents to acute rehab unit on 10/08 for intensive rehabilitation related to her myopathy after undergoing MVR replacement at for decompensated heart failure. She was hospitalized at in late August after experiencing progressively worsening shortness of breath, swelling, and weight gain. She was extensively volume overloaded and required dialysis as an inpatient. She was initially diagnosed with mitral valve stenosis in may of 2021 and was started on warfarin due to level of stenosis but was lost to follow up. Her symptoms began worsening in early August 2022 which ultimately lead to her admission to . She required hemodynamic support while hospitalized and undergoing dialysis as well with milrinone and vasopressin. After successful volume normalization and achieving hemodynamic stability she underwent tissue Mitral valve replacement on September 30. She developed atrial fibrillation after her procedure and was started on amiodarone with conversion to sinus rhythm. Today she reports much improvement of her shortness of breath and peripheral edema since her hospitalization. She denies chest pain aside from tenderness at her surgical site. She denies palpitations. Reports her lower extremity edema is back to prehospital baseline, trace edema present bilaterally. She is tolerating diet without N/V/D. Denies fevers and chills." She was doing well on the inpatient rehab unit and progressing with therapy u ntil the evening of 10/09 when she began to feel palpitations and tachycardia. She called the nurse who confirmed a fast heart rate. EKG shortly after revealed her to be in atrial fibrillation with rapid ventricular response, rate in the 130s. Arrangements were made for her to be transferred to the ICU. She was started on a cardizem drip and converted to sinus rhythm with rate in the 80s overnight. On my exam she remained in sinus rhythm with rate anywhere from 75- 85. The drip was stopped and she was given her first dose of oral cardizem this morning. She denies any more palpitations and does not have chest pain, shortness of breath, lightheadedness, syncope, or fever/chills. She has a history of afib with rvr around her mitral valve replacement surgery. She does not believe she was cardioverted at that time. She has been on an amiodarone taper since with no other episodes of palpitations. She is in good spirits this morning but is somewhat dejected because she thought she was improving in rehab and does not want any more setbacks. She is tolerating her diet without N/V/D. Denies any abdominal pain. She reports willingness to return to inpatient rehab soon pending insurance approval. Uneventful course after she was transferred to ICU and DC from ARU due to AF RVR. Cardizem drip helped return NSR. Overall she did well and had no other events and she was DC to ARU. Past Mbalvam-Kxiykb-Nubbgk Hx Past Med/Social Hx: Reviewed Nursing Past Med/Soc Hx, Reviewed and Corrections made Patient Social History Marrital Status: single Employed/Student: employed Alcohol Use: Denies Use Smoking Status: Former Smoker Past Medical History Surgeries: Open Heart Surgery Respiratory: COPD, Sleep Apnea Currently Using CPAP: No Currently Using BIPAP: No Cardiac: Atrial Fibrillation, Coronary Artery Disease, High Cholesterol, Hypertension, Valvular Heart Disease Neurological: Neuropathy Genitourinary: Bladder Infection Gastrointestinal: Gastroesophageal Reflux Musculoskeletal: Arthritis, Chronic Back Pain Endocrine: Diabetes, Non-Insulin dep Psychosocial: Anxiety, Depression Family History Heart Disease 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 PM&R Allergy/Meds/Data Review Allergies Coded Allergies: No Allergy Information Available (Unverified , 05/23/21) Home Medications Scheduled Acetaminophen (Tylenol Extra Strength), 1,000 MG PO Q6H, (Reported) Amiodarone HCl (Amiodarone HCl), 200 MG PO DAILY Ascorbic Acid (Vitamin C), 1,000 MG PO DAILY, (Reported) Aspirin (Aspirin EC), 81 MG PO DAILY, (Reported) Atorvastatin Calcium (Atorvastatin Calcium), 20 MG PO HS, (Reported) Budesonide/Formoterol Fumarate (Symbicort 80-4.5 Mcg Inhaler), 2 PUFF IH BID, (Reported) Bumetanide (Bumetanide), 2 MG PO BID, (Reported) Canagliflozin/Metformin HCl (Invokamet Xr 150-1,000 mg Tab), 1 EA PO DAILY, (Reported) Diltiazem HCl (Diltiazem 24Hr ER), 120 MG PO DAILY Dulaglutide (Trulicity), 0.75 MG SQ WEEK, (Reported) Omeprazole (Omeprazole), 20 MG PO DAILY, (Reported) Potassium Chloride (K-Tab ER), 10 MEQ PO BID, (Reported) Sennosides/Docusate Sodium (Senna-S Tablet), 2 EACH PO BID, (Reported) Vilazodone Hydrochloride (Viibryd), 40 MG PO DAILY, (Reported) Warfarin Sodium (Warfarin Sodium), 4 MG PO DAILY@1800 Warfarin Sodium (Warfarin Sodium), 2.5 MG PO DAILY@1800 Scheduled PRN Albuterol Sulfate (Ventolin Hfa), 1-2 PUFF INH TID PRN for SHORTNESS OF BREATH, (Reported) Oxycodone HCl/Acetaminophen (Percocet 5-325 mg Tablet), 1-2 TAB PO Q6H PRN for PAIN-MODERATE (5-7), (Reported) Discontinued Medications Amiodarone HCl (Amiodarone HCl), 400 MG PO DAILY, (Reported) Amiodarone HCl (Amiodarone HCl), 200 MG PO BID, (Reported) Amiodarone HCl (Amiodarone HCl), 200 MG PO DAILY, (Reported) Canagliflozin/Metformin HCl (Invokamet 50-1,000 mg Tablet), 1 EACH PO BID, (Reported) Discontinued Reason: No Longer Taking Metoprolol Tartrate (Metoprolol Tartrate), 12.5 MG PO BID, (Reported) Warfarin Sodium (Warfarin Sodium), 5 MG PO ESQUIVEL,SA, (Reported) Warfarin Sodium (Warfarin Sodium), 7.5 MG PO MO,,WE,TH,FR, (Reported) Current Medications Current Medications Reviewed Review of Systems Constitutional: see HPI, malaise, weakness EENTM: no symptoms reported Respiratory: dyspnea on exertion Cardiovascular: no symptoms reported Gastrointestinal: no symptoms reported Genitourinary: no symptoms reported Musculoskeletal: back pain, joint pain Skin: no symptoms reported Psychiatric/Neurological: Anxiety, Depressed All Other Systems Reviewed Negative Unless Noted: Yes Physical Exam Physical Exam Vital Signs Capillary Refill : Height, Weight, BMI Height: '" Weight: lbs. oz. kg; 41.59 BMI Method: General Appearance: No Apparent Distress, WD/WN, Chronically ill, Obese Eyes: Bilateral Eye Normal Inspection, Bilateral Eye PERRL HEENT: PERRL/EOMI, Normal ENT Inspection, Pharynx Normal Neck: Full Range of Motion, Normal Inspection, Non Tender, Supple, Carotid Bruit Respiratory: Chest Non Tender, Lungs Clear, Normal Breath Sounds, No Accessory Muscle Use, No Respiratory Distress Cardiovascular: Regular Rate, Rhythm, No Edema, No Gallop, No JVD, No Murmur, Normal Peripheral Pulses Gastrointestinal: Normal Bowel Sounds, No Organomegaly, No Pulsatile Mass, Non Tender, Soft Back: Normal Inspection, No CVA Tenderness, No Vertebral Tenderness Extremity: Normal Capillary Refill, Normal Inspection, Normal Range of Motion, Non Tender, No Calf Tenderness, No Pedal Edema Neurologic/Psychiatric: Alert, Oriented x3, boston cutter II-XII Norm as Tested, Abnormal Gait, Depressed Affect, Motor Weakness (generalized) Skin: Normal Color, Warm/Dry Lymphatic: No Adenopathy PM&R Medical Assessment & Plan REHAB IMPAIRMENT GROUP: CHF myopathy ETIOLOGIC DIAGNOSIS: 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 The comorbidities that impact the patients function and/or functional outcome by: recent dialysis required, dyspnea, hypoxia, severe weakness, recent open heart surgery REHAB PLAN: The patient is being admitted to our comprehensive inpatient rehabilitation facility and can tolerate the intensity of service consisting of at least: 180 minutes of therapy a day, 5 out of 7 days a week Rehab treatment will consist of: PT OT will focus on regaining strength with use of AD in order to gain stamina with ambulation and provide techniques to increase independence in ADL's The patient/family has a good understanding of our discharge process and will benefit from an interdisciplinary inpatient rehabilitation program. The patient has potential to make improvement and is in need of at least two of the following multidisciplinary therapies including but not limited to physical, occupational, speech, and prosthetics and orthotics. Additionally the patient will need services from respiratory, nutritional services, wound care, psychology, etc. (Customize this to each patient). Given the patients complex condition and risk of further medical complications, rehabilitation services cannot be safely or effectively provided at a lower level of care such as a custodial facility. BARRIERS TO DISCHARGE: Severe weakness and depression ESTIMATED LOS: 10 days DISPOSITION: Home RELEVANT CHANGES SINCE PREADMISSION SCREENING: I have compared the patients medical and functional status at the time of the preadmission screening and there are: no changes PROGNOSIS: Good REHABILITATION GOALS: 1. PT OT will focus on regaining strength with use of AD in order to gain stamina with ambulation and provide techniques to increase independence in ADL's All the above goals were reviewed with the patient and he/she is in agreement. By signing this document, I acknowledge that I have personally performed a full physical examination on this patient within 24 hours of admission to this inpatient rehabilitation facility and have determined the patient to be able to tolerate the above course of treatment at an intensive level for a reasonable period of time. I will be completing a detailed individualized Plan of Care for this patient by day #4 of the patients stay based upon the Preadmission Screen, the Post-Admission Evaluation, and the therapy evaluations. Admission Dx/Comorbidities: (1) Myopathy ICD Codes: G72.9 - Myopathy, unspecified Assessment/Plan Assessment and Plan Assess & Plan/Chief Complaint CHF myopathy Atrial fibrillation with RVR S/P MVR Chronic HFpEF HTN HLD T2DM COPD JF Depression Plan: Meds transferred from ICU Monitor INR Monitor HR Appreciate DARI Haider DO Oct 11, 2022 09:00
[~2022-10-11 09:48] MED LIST changes: +ACETAMINOPHEN 325 MG TABLET PO PRN; +ALPRAZolam 0.25 MG TABLET PO PRN; +BISACODYL 10 MG SUPPOSITORY PR PRN; +CALCIUM CARBONATE 500 MG CHEW TABLET PO PRN; +CANA1TAB8 PO; +DILT-27 PO; +DOCUSATE SODIUM 100 MG CAPSULE PO PRN; +FLEET ENEMA ADULT 1 EA BTL PR PRN; +LACTULOSE SYRUP 10GM/15ML (ENULOSE) 30ML UDC PO PRN; +LOPERAMIDE 2 MG (IMODIUM) TABLET PO PRN; +MELATONIN 3 MG TABLET PO PRN; +ONDANSETRON 4 MG (ZOFRAN) ORAL DISSOLVE TAB PO PRN; +WARF4TAB3 PO; +WRF2.5T PO; +diphenhydrAMINE 25 MG TAB (BENADRYL) PO PRN; +guaiFENesin/CODEINE (ROBITUSSIN AC) 10ML UDC PO PRN
[2022-10-11 14:00] VITALS: BP 132/70
[2022-10-11] MEDS ORDERED: ACETAMINOPHEN 500 MG TABLET PO SCH (14:45)
[2022-10-11] MEDS ORDERED: NON-FORMULARY MEDICATION 1 EA EA (Dulaglutide (Trulicity) 0.75 MG) SQ SCH (14:45)
[2022-10-11] MEDS ORDERED: RT-ALBUTEROL SULF 2.5 MG/3 ML PRE-MIX VIAL INH PRN (14:45)
[2022-10-11] MEDS: DOCUSATE SODIUM 100 MG CAPSULE PO SCH ×2 (16:17→19:11)
[2022-10-11] MEDS: polyethylene glycoL POWDER 17 GM (MIRALAX) PACK PO SCH ×2 (16:17→19:11)
[2022-10-11] MEDS: SENNA W/DOCUSATE (SENOKOT S) TABLET PO SCH ×2 (16:18→19:11)
[2022-10-11] MEDS ORDERED: warFARin 4 MG (COUMADIN) TAB PO SCH (18:00)
[2022-10-11] MEDS ORDERED: warFARin 2.5 MG (COUMADIN) TAB PO SCH (18:00)
[2022-10-11] MEDS: warFARin 4 MG (COUMADIN) TAB PO SCH (19:16)
[2022-10-11] MEDS: metFORMIN 500 MG (GLUCOPHAGE) TAB PO SCH (19:16)
[2022-10-11] MEDS: warFARin 2.5 MG (COUMADIN) TAB PO SCH (19:16)
[2022-10-11] MEDS: BUMETANIDE 1 MG TABLET PO SCH (20:11)
[2022-10-11] MEDS: KCL 10 MEQ TAB (MICRO K) PO SCH (20:11)
[2022-10-11 20:23] VITALS: BP 114/61
[2022-10-11] MEDS ORDERED: NON-FORMULARY MEDICATION 1 EA EA (Budesonide/Formoterol Fumarate (Symbicort 80-4.5 Mcg Inh IH SCH (21:00)
[2022-10-11] MEDS ORDERED: SENNA W/DOCUSATE (SENOKOT S) TABLET PO SCH (21:00)
[2022-10-12] MEDS: oxyCODONE/APAP 5/325MG (PERCOCET 5) TABLET PO PRN ×2 (02:53→21:01)
[2022-10-12 05:47] LABS: BASOPHILS # (AUTO) 0.2 10^3/uL (0.0-0.1); BASOPHILS % (AUTO) 1 % (0-10); EOSINOPHILS # (AUTO) 0.7 10^3/uL (0.0-0.3); EOSINOPHILS % (AUTO) 5 % (0-10); HEMATOCRIT 30 % (35-52); HEMOGLOBIN 8.8 g/dL (11.5-16.0); LYMPHOCYTES # (AUTO) 1.8 10^3/uL (1.0-4.0); LYMPHOCYTES % (AUTO) 13 % (12-44); MEAN CORPUSCULAR HEMOGLOBIN 26 pg (25-34); MEAN CORPUSCULAR HGB CONC 29 g/dL (32-36); MEAN CORPUSCULAR VOLUME 90 fL (80-99); MEAN PLATELET VOLUME 8.8 fL (9.0-12.2); MONOCYTES % (AUTO) 7 % (0-12); NEUTROPHILS # (AUTO) 10.3 10^3/uL (1.8-7.8); NEUTROPHILS % (AUTO) 73 % (42-75); PLATELET COUNT 300 10^3/uL (130-400); WHITE BLOOD COUNT 14.1 10^3/uL (4.3-11.0)
[2022-10-12 06:01] LABS: INR 2.8 (0.8-1.4); PROTHROMBIN TIME PATIENT 29.3 SEC (12.2-14.7)
[2022-10-12 06:13] LABS: ALBUMIN 3.3 GM/DL (3.2-4.5); BILIRUBIN,TOTAL 0.6 MG/DL (0.1-1.0); CALCIUM 9.2 MG/DL (8.5-10.1); CREATININE SERUM 0.91 MG/DL (0.60-1.30); POTASSIUM 4.7 MMOL/L (3.6-5.0); TOTAL PROTEIN 6.5 GM/DL (6.4-8.2)
[2022-10-12 06:25] LABS: EOSINOPHILS % (MANUAL) 4 %; HYPOCHROMASIA SLIGHT; LYMPHOCYTES % (MANUAL) 18 %; MONOCYTES % (MANUAL) 5 %; NEUTROPHILS % (MANUAL) 73 %
[2022-10-12 06:26] LABS: ANISOCYTOSIS SLIGHT
--- NOTE | 2022-10-12 07:51 | PM&R Progress Note ---
Subjective HPI/CC On Admission Date Seen by Provider: Oct 12, 2022 Time Seen by Provider: 12:00 Subjective/Events-last exam 10/12/2022: Doing well Anxious about "further complications" and I tired to reassure Patient has significant mental illness giving rise to anxiety and despondency and tearfulness Review of Systems General: Fatigue, Malaise Objective Exam Vital Signs Vital Signs Date Time Temp Pulse Resp B/P (MAP) Pulse Ox O2 Delivery O2 Flow Rate FiO2 10/12/22 09:00 Room Air 10/12/22 08:00 36.4 93 18 110/56 (74) 96 Capillary Refill : General Appearance: No Apparent Distress, WD/WN, Chronically ill, Obese HEENT: PERRL/EOMI, Normal ENT Inspection, Pharynx Normal Neck: Full Range of Motion, Normal Inspection, Non Tender, Supple, Carotid Bruit Respiratory: Chest Non Tender, Lungs Clear, Normal Breath Sounds, No Accessory Muscle Use, No Respiratory Distress Cardiovascular: Regular Rate, Rhythm, No Edema, No Gallop, No JVD, No Murmur, Normal Peripheral Pulses Gastrointestinal: Normal Bowel Sounds, No Organomegaly, No Pulsatile Mass, Non Tender, Soft Back: Normal Inspection, No CVA Tenderness, No Vertebral Tenderness Extremity: Normal Capillary Refill, Normal Inspection, Normal Range of Motion, Non Tender, No Calf Tenderness, No Pedal Edema Neurologic/Psychiatric: Alert, 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 FIM Transfers Therapy Code Descriptions/Definitions Functional [place] Measure: 0=Not Assessed/NA 4=Minimal Assistance 1=Total Assistance 5=Supervision or Setup 2=Maximal Assistance 6=Modified [place] 3=Moderate Assistance 7=Complete IndependenceSCALE: Activities may be completed with or without assistive devices. 0-Fmzelfbwhi-tpudqcg completes the activity by him/herself with no assistance from a helper. 5-Set-up or Clean-up Assistance-helper sets up or cleans up; patient completes activity. [place] assists only prior to or following the activity. 4-Supervision or Touching Assistance-helper provides verbal cues and/or touching/steadying and/or contact guard assistance as patient completes activity. Assistance may be provided throughout the activity or intermittently. 3-Partial/Moderate Assistance-helper does LESS THAN HALF the effort. [place] lifts, holds or supports trunk or limbs, but provides less than half the effort. 2-Substantial/Maximal Assistance-helper does MORE THAN HALF the effort. [place] lifts or holds trunk or limbs and provides more than half the effort. 0-Eavfivdpk-wqupze does ALL the effort. Patient does none of the effort to complete the activity. Or, the assistance of 2 or more helpers is required for the patient to complete the activity. If activity was not attempted, code reason: 7-Patient Refused. 9-Not Applicable-not attempted and the patient did not perform the activity before the current illness, exacerbation or injury. 10-Not Attempted due to Environmental Limitations-(lack of equipment, weather restraints, etc.). 88-Not Attempted due to Medical Conditions or Safety Concerns. Assessment/Plan Assessment and Plan Assess & Plan/Chief Complaint CHF myopathy Atrial fibrillation with RVR S/P MVR Chronic HFpEF HTN HLD T2DM COPD JF Depression Plan: Meds transferred from ICU Monitor INR Monitor HR Appreciate Dr Desai 10/12/2022: Supportive care Monitor closely (1) Myopathy DARI GUAJARDO DO Oct 12, 2022 07:51
[2022-10-12] MEDS: metFORMIN 500 MG (GLUCOPHAGE) TAB PO SCH (07:59)
[2022-10-12 08:00] VITALS: BP 110/56
[2022-10-12] MEDS: DOCUSATE SODIUM 100 MG CAPSULE PO SCH ×2 (08:00→19:42)
[2022-10-12] MEDS ORDERED: EMPAGLIFLOZIN 10 MG TABLET (JARDIANCE) PO SCH (08:00)
[2022-10-12] MEDS: polyethylene glycoL POWDER 17 GM (MIRALAX) PACK PO SCH ×2 (08:00→19:42)
[2022-10-12] MEDS: SENNA W/DOCUSATE (SENOKOT S) TABLET PO SCH ×2 (08:00→19:43)
[2022-10-12] MEDS: FLUTICASONE/VILANTEROL 100 MCG 14'S (BREO) IH SCH (08:28)
[2022-10-12] MEDS ORDERED: PATIENT MAY USE OWN MEDS, ALL MC SCH (09:00)
[2022-10-12] MEDS ORDERED: CANAGLIFLOZIN PO SCH (09:00)
[2022-10-12] MEDS ORDERED: METFORMIN HCL PO SCH (09:00)
[2022-10-12] MEDS ORDERED: [UNRECOGNIZED DRUG - OTHER] PO SCH (09:00)
[2022-10-12] MEDS: BUMETANIDE 1 MG TABLET PO SCH ×2 (09:02→17:58)
[2022-10-12] MEDS: AMIODARONE 200 MG TABLET PO SCH (09:03)
[2022-10-12] MEDS: KCL 10 MEQ TAB (MICRO K) PO SCH ×2 (09:03→21:01)
[2022-10-12] MEDS: PANTOPRAZOLE 20 MG TABLET (PROTONIX) PO SCH (09:03)
[2022-10-12] MEDS: ASPIRIN enteric coated 81MG TABLET PO SCH (09:03)
[2022-10-12] MEDS: dilTIAZem120 MG (CARDIZEM CD) CAP PO SCH (09:03)
[2022-10-12] MEDS: INVOKAMET PO SCH (10:43)
[2022-10-12] MEDS: VIIBRYD 40 MG PO SCH (10:43)
[2022-10-12] MEDS: inSUlin ASPART (NovoLOG) 1 UNIT/0.01 ML (CHARGE PER UNIT) SC SCH ×3 (12:23→21:01)
[2022-10-12] MEDS: warFARin 4 MG (COUMADIN) TAB PO SCH (17:58)
[2022-10-12] MEDS: warFARin 2.5 MG (COUMADIN) TAB PO SCH (17:58)
[2022-10-12 20:51] VITALS: BP 117/67
[2022-10-12] MEDS: CATHETER FLUSH 10 ML SYR IVP SCH (21:01)
[2022-10-13] MEDS: inSUlin ASPART (NovoLOG) 1 UNIT/0.01 ML (CHARGE PER UNIT) SC SCH ×4 (05:56→21:30)
[2022-10-13] MEDS: CATHETER FLUSH 10 ML SYR IVP SCH ×3 (05:56→21:38)
[2022-10-13] MEDS: FLUTICASONE/VILANTEROL 100 MCG 14'S (BREO) IH SCH (06:43)
[2022-10-13] MEDS: BUMETANIDE 1 MG TABLET PO SCH ×3 (07:34→20:00)
[2022-10-13] MEDS: dilTIAZem120 MG (CARDIZEM CD) CAP PO SCH (07:34)
[2022-10-13] MEDS: ASPIRIN enteric coated 81MG TABLET PO SCH (07:34)
[2022-10-13] MEDS: KCL 10 MEQ TAB (MICRO K) PO SCH ×2 (07:34→21:37)
[2022-10-13] MEDS: AMIODARONE 200 MG TABLET PO SCH (07:34)
[2022-10-13] MEDS: polyethylene glycoL POWDER 17 GM (MIRALAX) PACK PO SCH ×2 (07:35→21:30)
[2022-10-13] MEDS: DOCUSATE SODIUM 100 MG CAPSULE PO SCH ×2 (07:35→21:37)
[2022-10-13] MEDS: SENNA W/DOCUSATE (SENOKOT S) TABLET PO SCH ×2 (07:35→21:37)
[2022-10-13] MEDS: VIIBRYD 40 MG PO SCH (07:37)
[2022-10-13] MEDS: INVOKAMET PO SCH (07:37)
[2022-10-13] MEDS: PANTOPRAZOLE 20 MG TABLET (PROTONIX) PO SCH (07:37)
[2022-10-13 08:02] VITALS: BP 113/55
--- NOTE | 2022-10-13 08:15 | Physical Therapy Evaluation ---
PT Evaluation-General Medical Diagnosis Admission Date Oct 11, 2022 at 13:35 Medical Diagnosis: CHF Myopathy Onset Date: Sep 30, 2022 Therapy Diagnosis Therapy Diagnosis: Proximal weakness, Decreased functional mobility, Decreased endurance Precautions Precautions/Isolations: Fall Prevention, Standard Precautions, Pressure Ulcer Sternal precautions; No lifting more than 10lbs Weight Bear Status Right Lower Extremity: Right Full Weight Bearing Left Lower Extremity: Left Full Weight Bearing Referral Physician: Juanita Reason for Referral: Evaluation/Treatment Medical History Pertinent Medical History: Atrial Fib, COPD, GERD, HTN, [place] Additional Medical History anemia, cardiomyopathy, CHF, COPD, DM II, edema, GERD, hypokalemia, hyponatremia, leukocytosis, obesity, JF, A-Fib, HTN, respiratory failure, tobacco abuse, NAVID, depression, tachycardia Current History S/P MVR on 09/30/2022; Admitted to ARU on 10/08/2022 for CHF myopathy and proximal weakness; Admitted to ICU on 10/09/2022 for A-Fib with RVR; Readmitted to ARU on 10/11/2022 Reviewed History: Yes Social History Home: Single Level Current Living Status: Alone Entry Into Home: Stairs With Railing PT Steps Into Home: 3 Pt lives in [place], [place], alone, in a single story home with 3 steps to enter/exit with 1 HR. Tub shower with SC and [facility]. Pt has a 4WW and BSC. Prior Prior Level of Function SCALE: Activities may be completed with or without assistive devices. 9-Ktcpeqieux-qsnxrql completes the activity by him/herself with no assistance from a helper. 5-Set-up or Clean-up Assistance-helper sets up or cleans up; patient completes activity. [place] assists only prior to or following the activity. 4-Supervision or Touching Assistance-helper provides verbal cues and/or touching/steadying and/or contact guard assistance as patient completes activity. Assistance may be provided throughout the activity or intermittently. 3-Partial/Moderate Assistance-helper does LESS THAN HALF the effort. [place] lifts, holds or supports trunk or limbs, but provides less than half the effort. 2-Substantial/Maximal Assistance-helper does MORE THAN HALF the effort. [place] lifts or holds trunk or limbs and provides more than half the effort. 6-Lbmflmrwi-ekpbnf does ALL the effort. Patient does none of the effort to complete the activity. Or, the assistance of 2 or more helpers is required for the patient to complete the activity. If activity was not attempted, code reason: 7-Patient Refused. 9-Not Applicable-not attempted and the patient did not perform the activity before the current illness, exacerbation or injury. 10-Not Attempted due to Environmental Limitations-(lack of equipment, weather restraints, etc.). 88-Not Attempted due to Medical Conditions or Safety Concerns. Bed Mobility: 6 Transfers (B,C,W/C): 6 Gait: 6 Stairs: 6 Wheelchair Mobility: 9 Indoor Mobility (Ambulation): Independent Stairs: Independent Prior Devices Use: Walker Prior Device Use: 4WW, SC, BSC At [facility], pt was Ind with no AD and driving. Pt just recently started using a 4WW, secondary to B LE and hip weakness. 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 Pt has a 4WW, SC, and BSC. PT Evaluation-Current Subjective Pt is agreeable to PT. Pt reports 5/10 pain in her sternal incision. Pain Numeric Pain Scale: 5-Moderate Pain Location: Incisional Location Body Site: Chest Section J - Health Conditions 1. Rarely or not at all 2. Occasionally 3. Frequently 4. Almost constantly 8. Unable to answer Pain Effect on Sleep: 3 Pain Interference with Therapy: 3 Pain Interference w/Day-to-Day: 3 Pt/Family Goals Safely return home Objective Patient Orientation: Person, Place, Time, Situation ROM/Strength ROM Upper Extremities See OT note ROM Lower Extremities WFL Strength Upper Extremities See OT note Strength Lower Extremities B ankle MMT = 4-/5 B knee MMT = 4-/5 B hip MMT = 3+/5 Fair - Fair (+) core strength Integumentary/Posture Integumentary See nurses note Bowel Incontinence: No Bladder Incontinence: No Posture Slightly rolled/forward shoulders Sensory Vision: Functional Hearing: Functional Hand Dominance: Right Sensation Right Upper Extremit: Intact Sensation Left Upper Extremity: Intact Sensation Right Lower Extremit: Intact Sensation Left Lower Extremity: Intact Transfers Roll Left & Right (QC): 4 (CGA ) Sit to Lying (QC): 4 (CGA ) Lying to Sitting/Side of Bed(Q: 4 (CGA ) Sit to Stand (QC): 4 (CGA ) Chair/Ury-fz-Jcrsz Xfer(QC): 4 (CGA ) Toilet Transfer (QC): 4 (CGA ) Car Transfer (QC): 4 (CGA ) Gait Does the Patient Walk?: Yes Mode of Locomotion: Walk Anticipated Mode of Locomotion: Walk Walk 10 feet (QC): 4 (CGA ) Walk 50 ft with 2 Turns(QC): 4 (CGA ) Walk 150 ft (QC): 4 (CGA ) Walking 10ft/uneven surface-QC: 4 (CGA ) Distance: 150ft Gait Assistive Device: Walker 4 Wheeled Wheelchair Training Does the Pt Use a Wheelchair?: No Wheel 50 ft with 2 turns (QC): 9 Wheel 150 ft (QC): 9 Type of Wheelchair: N/A Stairs #of Steps: 8 1 Step (curb) (QC): 4 (CGA ) 4 Steps (QC): 4 (CGA ) 12 Steps (QC): 9 (Pt has 3 stairs to enter/exit the home. ) Walking Assistive Device: Walker Balance Sitting Static: Good Sitting Dynamic: Fair (Decreased core strength ) Standing Static: Good Standing Dynamic: Fair (Decreased core strength ) Picking up an Object (QC): 4 (CGA ) Special Test Comments KU standing balance scale = 3+/5 (goal = 4+/5) Treatment PT eval completed Assessment/Needs Pt tolerated PT well with good effort Rehab Potential: Good Post Rehab Potential-Barriers: Proximal/hip/LE/core weakness Equipment Needs Transfer bench PT Mcc Goals Dental Mold Maker Goals PT Mcc Goals Time Frame: Oct 18, 2022 Roll Left to Right (QC): 6 (Pt will be Mod I with functional mobility with the 4WW, in order to be at PLOF and safely return home, alone. ) Sit to Lying (QC): 6 (Pt will be Mod I with functional mobility with the 4WW, in order to be at PLOF and safely return home, alone. ) Lying-Sitting on Side/Bed(QC): 6 (Pt will be Mod I with functional mobility with the 4WW, in order to be at PLOF and safely return home, alone. ) Sit to Stand (QC): 6 (Pt will be Mod I with functional mobility with the 4WW, in order to be at PLOF and safely return home, alone. ) Chair/Igk-oc-Wxckw Xfer(QC): 6 (Pt will be Mod I with functional mobility with the 4WW, in order to be at PLOF and safely return home, alone. ) Toilet/Commode Transfer (QC): 6 (Pt will be Mod I with functional mobility with the 4WW, in order to be at PLOF and safely return home, alone. ) Car Transfer (QC): 6 (Pt will be Mod I with functional mobility with the 4WW, in order to be at PLOF and safely return home, alone. ) Does the Patient Walk: Yes Walk 10 feet (QC): 6 (Pt will be Mod I with functional mobility with the 4WW, in order to be at PLOF and safely return home, alone. ) Walk 10ft-Uneven Surface(QC): 6 (Pt will be Mod I with functional mobility with the 4WW, in order to be at PLOF and safely return home, alone. ) Walk 50ft with 2 Turns (QC): 6 (Pt will be Mod I with functional mobility with the 4WW, in order to be at PLOF and safely return home, alone. ) Walk 150 ft (QC): 6 (Pt will be Mod I with functional mobility with the 4WW, in order to be at PLOF and safely return home, alone. ) Does the Pt use WC or Scooter?: No Wheel 50 feet with 2 turns (QC: 9 Type: N/A Wheel 150 feet: 9 Type: N/A 1 Step (curb) (QC): 6 (Pt will be Mod I with functional mobility with the 4WW, in order to be at PLOF and safely return home, alone. ) 4 Steps (QC): 6 (Pt will be Mod I with functional mobility with the 4WW, in order to be at PLOF and safely return home, alone. ) 12 Steps (QC): 9 (Pt has 3 steps to enter/exit home ) Picking up an Object (QC): 6 (Pt will be Mod I with functional mobility with the 4WW, in order to be at PLOF and safely return home, alone. ) KU standing balance goal = 4+/5 PT Plan Problem List Problem List: Activity Tolerance, Functional Strength, Safety, Balance, Gait, Transfer, Bed Mobility, ROM Treatment/Plan Treatment Plan: Continue Plan of Care Treatment Plan: Bed Mobility, Concurrent Therapy, Education, Functional Activity [place], Functional Strength, Group Therapy, Gait, Safety, Therapeutic Exercise, Transfers Treatment Duration: Oct 18, 2022 Frequency: At least 5 of 7 days/Wk (IRF) Estimated Hrs Per Day: 1.5 hours per day Patient and/or Family Agrees t: Yes Safety Risks/Education Patient Education: Gait Training, Transfer Techniques, Steps, Reviewed Precautions, Safety Issues Teaching Recipient: Patient Teaching Methods: Demonstration, Discussion Response to Teaching: Verbalize Understanding, Return Demonstration, Reinforcement Needed Discharge Recommendations Plan Pt would benefit from skilled PT to improve proximal weakness and safely d/c home Therapy Discharge Recommendati: Home & Family Equpiment Recommendations-D/C: Other, Please Explain (Transfer bench ) Discharge Status/Home Program Cont per POC Barriers to Progress Proximal/Hip/core/LE weakness Target Placement Home Time Time In: 800 Time Out: 830 DATE: Oct 13, 2022 Total Billed Treatment Time: 30 Total Billed Treatment 30 min 1 visit SUZETTE WOOD PT Oct 13, 2022 08:15
[2022-10-13] MEDS: oxyCODONE/APAP 5/325MG (PERCOCET 5) TABLET PO PRN (08:40)
--- NOTE | 2022-10-13 09:17 | Occupational Therapy Eval ---
OT Evaluation-General/PLF Medical Diagnosis Admission Date Oct 11, 2022 at 13:35 Medical Diagnosis: CHF Myopathy Onset Date: Sep 30, 2022 Therapy Diagnosis Therapy Diagnosis: proximal weakness Precautions Precautions/Isolations: Fall Prevention, Standard Precautions, Pressure Ulcer Weight Bear Status Sternal precautions Referral Physician: Juanita Adler Reason: Self Care, Evaluation/Treatment Medical History Pertinent Medical History: Atrial Fib, COPD, GERD, HTN, [place] Current History S/P MVR on 09/30/2022; Admitted to ARU on 10/08/2022 for CHF myopathy and proximal weakness; Admitted to ICU on 10/09/2022 for A-Fib with RVR; Readmitted to ARU on 10/11/2022 Social History Home: Single Level Current Living Status: Alone Entry Into Home: Stairs With Railing Steps Into Home: 3 ADL-Prior Level of Function SCALE: Activities may be completed with or without assistive devices. 2-Hrimwwzjme-lyphgxd completes the activity by him/herself with no assistance from a helper. 5-Set-up or Clean-up Assistance-helper sets up or cleans up; patient completes activity. [place] assists only prior to or following the activity. 4-Supervision or Touching Assistance-helper provides verbal cues and/or touching/steadying and/or contact guard assistance as patient completes activity. Assistance may be provided throughout the activity or intermittently. 3-Partial/Moderate Assistance-helper does LESS THAN HALF the effort. [place] lifts, holds or supports trunk or limbs, but provides less than half the effort. 2-Substantial/Maximal Assistance-helper does MORE THAN HALF the effort. [place] lifts or holds trunk or limbs and provides more than half the effort. 0-Mjydyocwc-xfubkn does ALL the effort. Patient does none of the effort to complete the activity. Or, the assistance of 2 or more helpers is required for the patient to complete the activity. If activity was not attempted, code reason: 7-Patient Refused. 9-Not Applicable-not attempted and the patient did not perform the activity before the current illness, exacerbation or injury. 10-Not Attempted due to Environmental Limitations-(lack of equipment, weather restraints, etc.). 88-Not Attempted due to Medical Conditions or Safety Concerns. 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 [employer] [address] Self: Yes (no driving now 6-8 weeks) OT Current Status Subjective Feeling depressed from this set back Pain Numeric Pain Scale: 7 (resolves w/ rest) Location Body Site: Chest Mental Status/Objective Patient Orientation: Person, Place, Time, Situation Attachments: Oxygen (at night), Telemetry Current Hand Dominance: Right Upper Extremity ROM ROM sternal precautions WFL Upper Extremity Coordination INTACT Upper Extremity Sensation INTACT Upper Extremity Strength Lifting precautions 8 pounds ADL-Treatment Eating (QC): 6 Oral Hygiene (QC): 5 Shower/Bathe Self (QC): 7 (declined at this time) Upper Body Dressing (QC): 4 Lower Body Dressing (QC): 4 On/Off Footwear (QC): 4 (use of long handle shoe horn) Toileting Hygiene (QC): 4 Education OT Patient Education: Correct positioning, Exercise program, Modified ADL techniques, Progress toward Goal/Update tx plan, Purpose of tx/functional activities, Reviewed precautions, Rehab process, Safety issues, Transfer techniques, Use of adapted equipment Teaching Recipient: Patient Teaching Methods: Demonstration, Discussion Response to Teaching: Verbalize Understanding, Reinforcement Needed BIMS CAM BIMS Expression of Ideas and Wants: Without Difficulty Understanding Verbal Content: Understands Brief Interview/Mental Status: Yes IRF ALLEN BIMS: IRF ALLEN BIMS Response (Comments) Value Repitition of Three Words Three 3 Recalls Socks Yes, No Cue Required 2 Recalls Blue Yes, No Cue Required 2 Recalls Bed Yes, No Cue Required 2 Year Correct 3 Month Accurate Within 5 Days 2 Day Correct 1 Total 15 Patient Normally Able to Recal: Location of own room, Staff Names and faces, That he/she in a [facility] Should Staff Asses. Mental St.: No CAM Mental Status Change/Baseline: 0 Inattention: 0 Disorganized thinkin Altered level of consciousness: 0 OT Short Term Goals Short Term Goals Time Frame: Oct 17, 2022 Toileting hygiene: 5 Shower/bathe self: 5 Upper body dressin Lower body dressin OT Custodial Goals Custodial Goals Oral Hygiene (QC): 6 Toileting Hygiene (QC): 6 Shower/Bathe Self (QC): 6 Upper Body Dressing (QC): 6 Lower Body Dressing (QC): 6 On/Off Footwear (QC): 6 1=Demonstrate adherence to instructed precautions during ADL tasks. 2=Patient will verbalize/demonstrate understanding of assistive devices/modifications for ADL. 3=Patient will improve strength/tolerance for activity to enable patient to perform ADL's. OT Education/Plan Problem List/Assessment Assessment: Decreased Activ Tolerance, Decreased UE Strength, Impaired Self- Care Skills Discharge Recommendations Plan/Recommendations: Continue POC Treatment Plan/Plan of Care Patient would benefit from OT for education, treatment and training to promote independence in ADL's, mobility, safety and/or upper extremity function for ADL's. Plan of Care: ADL Retraining, Concurrent Therapy, Functional Mobility, Group Exercise/Act as Ind, UE Funct Exercise/Act Treatment Duration: Oct 20, 2022 Frequency: At least 5 of 7 days/Wk (IRF) Estimated Hrs Per Day: 1.5 hours per day Agreement: Yes Rehab Potential: Good Resting in recliner ready for PT session Time Start Time: 08:45 Stop Time: 08:55 DATE: Oct 13, 2022 Total Time Billed (hr/min): 10 Billed Treatment Time EVM 10 min MANOLO FRANCIS OT Oct 13, 2022 09:17
--- NOTE | 2022-10-13 09:20 | Cardiology Progress Note ---
Subjective Date Seen by Provider: Oct 13, 2022 Time Seen by Provider: 08:15 Subjective/Events-last exam Patient is up walking in room with PT. Denies any chest pain or palpitations. Reports some dyspnea on exertion. Objective-Cardiology Exam Last Set of Vital Signs Vital Signs 10/12/22 10/13/22 10/13/22 10/13/22 08:28 08:02 09:10 13:00 Temp 36.0 Pulse 99 Resp 18 B/P (MAP) 113/55 (74) Pulse Ox 97 O2 Delivery Room Air O2 Flow Rate 2.00 I&O Intake and Output 10/13/22 00:00 Intake Total 1750 ml Balance 1750 ml Intake Oral 1750 ml # Voids 6 # Bowel Movements 2 General: Alert, Oriented X3, Cooperative HEENT: Atraumatic, PERRLA Lungs: Clear to Auscultation, Normal Air Movement Heart: Normal S1, Normal S2 Abdomen: Normal Bowel Sounds, Soft Skin: No Rashes, No Significant Lesion Neuro: Normal Speech Psych/Mental Status: Mental Status NL, Mood NL A/P-Cardiology Admission Diagnosis Mitral stenosis, s/p Mitral valve replacement afib HTN DM Assessment/Plan Paroxysmal atrial fibrillation, Converted to sinus rhythm. Maintained on Cardizem CD 120 mg daily, Amiodarone 200 mg daily. Continue warfarin. Patient does not want to travel to [place] or [place]. INR 2.8. Will have her f/u in our office Mitral valve stenosis, history of MVR with mechanical valve with Dr. Perry at approx 2 weeks ago. Incision and CT sites C/D/I without erythema or drainage. HTN, continue to monitor blood pressure HLP, continue to monitor as outpatient DM, management per primary team Patient was seen and evaluated with Lynette I interviewed and examined the patient Discussed management plan, agree with the current scribed note Patient has paroxysmal atrial fibrillation, converted to sinus rhythm. She is maintained on Cardizem and amiodarone Monitor blood pressure and lipids Chest wound is healing well Continue on current medication Supervisory-Addendum Brief Supervisory Addendum Participated in pt care: history, MDM, physical Personally performed: exam, history, MDM Care discussed with: MARY Results interpretation: Verified all documentation Notes: Patient was seen and evaluated with Lynette, examination performed, management plan was discussed, agree with the current scribed note, I made few changes to the note using Italic font LYNETTE CARRANZA Oct 13, 2022 09:20 ASIA RICE MD Oct 13, 2022 14:43
--- NOTE | 2022-10-13 09:56 | Individualized Plan of Care ---
Individualized Plan of Care Rehab Nursing IPOC Order Admission Date Oct 11, 2022 at 13:35 Current Orders Orders Admission Order(Inpt,Obs,Sdc) (10/11/22 08:58) Vital Signs: Per Unit Policy ( 08,16,00 (10/11/22 08:58) Trung Munson ,21 (10/11/22 08:58) Sequential Compression Device [id number] (10/11/22 08:58) Shot Polisher And Inspector-Inpt Rehab Con (10/11/22 08:58) Rehab Nursing Orders-Ipoc (10/11/22 08:58) Physical Therapy Rehab Orders (10/11/22 08:58) Occupational Therapy Rehab Ord (10/11/22 08:58) Speech Therapy Rehab Orders (10/11/22 08:58) Cbc With Automated Diff (10/12/22 06:00) Comprehensive Metabolic Panel (10/12/22 06:00) Precautions (Aru) (10/11/22 08:58) Weekly Weight WEEK (10/11/22 08:58) Rehab-Intensity Of Therapy (10/11/22 08:58) Initiate Admission Nursing Pro .admission (10/11/22 08:58) Alprazolam Tablet (Xanax Tablet) (10/11/22 09:00) Calcium Carbonate Chew Tablet (Antacid C (10/11/22 09:00) Diphenhydramine Tablet (Benadryl Tablet) (10/11/22 09:00) Docusate Sodium Capsule (Colace Capsule) (10/11/22 09:00) Docusate Sodium Capsule (Colace Capsule) (10/11/22 09:00) Bisacodyl Suppository (Dulcolax Supposit (10/11/22 09:00) Lactulose Oral Solution (Enulose Oral So (10/11/22 09:00) Na Phos/Na Biphos Enema (Fleet Enema Juan (10/11/22 09:00) Guaifenesin/Codeine Syrup (Robitussin Ac (10/11/22 09:00) Loperamide Tablet (Imodium Tablet) (10/11/22 09:00) Melatonin Tablet (Melatonin Tablet) (10/11/22 09:00) Polyethylene Glycol Powder Pkt (Miralax (10/11/22 09:00) Ondansetron Oral Dissolve Tab (Zofran (10/11/22 09:00) Senna S Tablet (Senokot S Tablet) (10/11/22 09:00) Acetaminophen Tablet/Caplet (Tylenol T (10/11/22 09:00) Protime With Inr (10/12/22 06:00) Initiate Admission Nursing Pro .admission (10/11/22 08:58) Admission Arrival Bed Request (10/11/22 13:35) Acetaminophen Tablet (Tylenol Tablet) (10/11/22 14:45) Albuterol Pre-Mix Nebs (Rt) (Proventil (10/11/22 14:45) Amiodarone Tablet (Cordarone Tablet) (10/12/22 09:00) Aspirin Enteric Coated Tablet (Ecotrin T (10/12/22 09:00) Atorvastatin Tablet (Lipitor Tablet) (10/11/22 21:00) Diltiazem Cd 24 Hr Capsule (Cardizem Cd (10/12/22 09:00) Oxycodone/Apap 5/325mg Tablet (Percocet (10/11/22 14:45) Potassium Chloride (Tablet) (Klor Con Ta (10/11/22 21:00) Ascorbic Acid Tablet (Vitamin C Tablet) (10/12/22 09:00) Bumetanide Tablet (Bumex Tablet) (10/11/22 21:00) (Nf) Dulaglutide (Trulicity) (10/11/22 14:45) Pantoprazole Tablet (Protonix Tablet) (10/12/22 09:00) (Nf) Vilazodone Hydrochloride (Viibryd) (10/12/22 09:05) Svn Small Volume Nebulizer (10/11/22 14:41) Empagliflozin Tablet (Jardiance Tablet) (10/12/22 08:00) Metformin Tablet (Glucophage Tablet) (10/11/22 18:00) Warfarin Tablet (Coumadin Tablet) (10/11/22 18:00) Warfarin Tablet (Coumadin Tablet) (10/11/22 18:00) Fluticasone/Vilanterol 100 Mcg (Breo Ell (10/12/22 08:00) Telemetry (10/11/22 16:07) Telemetry Nursing Assessment ( (10/11/22 16:07) Consult Cardiology (10/11/22 16:07) General/Regular (10/11/22 Dinner) Code/Resuscitation (10/11/22 19:30) Manual Differential (10/12/22 05:40) Accucheck Achs ACHS (10/12/22 07:39) Insulin Aspart (Novolog) (Novolog (Charg (10/12/22 11:00) Patient May Use Own Meds, All (Patient M (10/12/22 09:00) Non-Formulary Medication (Non-Formulary (10/12/22 09:21) Sodium Chloride Flush (Catheter Flush Sy (10/12/22 22:00) Bumetanide Tablet (Bumex Tablet) (10/12/22 17:00) Magic Mouthwash, Adult (Magic Mouthwash, (10/13/22 13:00) Tramadol Tablet (Ultram Tablet) (10/13/22 10:45) Oxycodone Immediate Rel Tablet (Oxyir Ta (10/13/22 10:45) Nystatin Susp For Compounding (Mycostati (10/13/22 13:00) Glucerna (10/13/22 11:16) Patient Visit (10/13/22 ) Pt Eval Moderate Complexity (10/13/22 ) Patient Visit (10/13/22 ) Functional Activities, Ea 15 (10/13/22 ) Gait Training, Ea 15 Min (10/13/22 ) Exercise Therap, Ea 15 Min (10/13/22 ) Patient Visit (10/13/22 ) Speech Sound Lang Comp (10/13/22 ) Dysphagia Evaluation Std (10/13/22 ) Consult Wound Care Physician (10/13/22 14:38) Dressing Order (Intervention) DAILY (10/13/22 16:39) Bumetanide Tablet (Bumex Tablet) (10/13/22 19:30) Rehab Nursing Orders: Ongoing Assess. of Function Status, Bladder Management, Bladder Scan, Bladder Training, Bowel Management, Bowel Training, Disease Management & Educaiton, DVT Prophylaxis, Fall Prevention, Fluid/Electrolyte/Nutrition Mgmt, Infection Prevention, Medication Management & Education, Management of Risks & Complications, Management of Skin Intergrity, Nutrition Management, Pain Management, Patient/Family Support, Safety Management, Wound Management Intensity of Therapy to be met Patient to be seen: Min.3h per day/5 of 7d PT IPOC Problem List: Activity Tolerance, Functional Strength, Safety, Balance, Gait, Transfer, Bed Mobility, ROM Treatment Plan: Continue Plan of Care Bed Mobility, Concurrent Therapy, Education, Functional Activity Terrell, Functional Strength, Group Therapy, Gait, Safety, Therapeutic Exercise, Transf ers Treatment Duration: Oct 18, 2022 Frequency: At least 5 of 7 days/Wk (IRF) Estimated Hrs Per Day: 1.5 hours per day OT IPOC Problems: Decreased Activ Tolerance, Decreased UE Strength, Impaired Self-Care Skills OT Treatment, Training and Edu: Yes Plan of Care: ADL Retraining, Concurrent Therapy, Functional Mobility, Group Exercise/Act as Ind, UE Funct Exercise/Act Treatment Duration: Oct 20, 2022 Frequency: At least 5 of 7 days/Wk (IRF) Estimated Hrs Per Day: 1.[address] IPOC Speech Therapy Treatment Plan: Discontinue ST Treatment Duration: Oct 13, 2022 Frequency: Modified Program (IRF) Estimated Hrs Per Day: Other Shot Polisher And Inspector/Case Mgmt Shot Polisher And Inspector/Case Managemen: Discharge Planning Dietitian/Tube Mill Operator Dietitian/Tube Mill Operator to monitor nutritional status and make changes and/or recommendations as needed and work with speech pathology on dietary upgrades as the occur. Physician IPOC Medical Issues being managed closely and that require the 24 hour availability of a physician: Recent cardiac dysfunction requiring AF RVR management and additional cardiac meds along with cardiology consultation will require close monitoring for decompensation Medical Issues: Bowel/Bladder Function, DVT Prophylaxis, Falls Precautions, Fluid/Electrolyte/Nutrition Balance, Infection Protection, Pain Management, Wound Care Brief Synthesis of Preadmission Screen, Post-Admission Evaluation, and Therapy Evaluations: PT OT will focus on regaining function with the use of AD in order to regain function and increase stamina and increase independence in ADL's Medical Prognosis: Good Anticipated Length of Stay: 7 days DARI GUAJARDO DO Oct 13, 2022 09:56
--- NOTE | 2022-10-13 09:56 | PM&R Progress Note ---
Subjective HPI/CC On Admission Date Seen by Provider: Oct 13, 2022 Time Seen by Provider: 10:30 Subjective/Events-last exam 10/13/2022: Doing well Monitor closely Lungs are clear No pain Reviewed meds 10/12/2022: Doing well Anxious about "further complications" and I tired to reassure Patient has significant mental illness giving rise to anxiety and despondency and tearfulness Review of Systems General: Fatigue, Malaise Objective Exam Vital Signs Vital Signs Date Time Temp Pulse Resp B/P (MAP) Pulse Ox O2 Delivery O2 Flow Rate FiO2 10/13/22 19:00 94 10/13/22 09:10 Room Air 10/13/22 08:02 36.0 18 113/55 (74) 97 10/12/22 08:28 2.00 Capillary Refill : General Appearance: No Apparent Distress, WD/WN, Chronically ill, Obese HEENT: PERRL/EOMI, Normal ENT Inspection, Pharynx Normal Neck: Full Range of Motion, Normal Inspection, Non Tender, Supple, Carotid Bruit Respiratory: Chest Non Tender, Lungs Clear, Normal Breath Sounds, No Accessory Muscle Use, No Respiratory Distress Cardiovascular: Regular Rate, Rhythm, No Edema, No Gallop, No JVD, No Murmur, Normal Peripheral Pulses Gastrointestinal: Normal Bowel Sounds, No Organomegaly, No Pulsatile Mass, Non Tender, Soft Back: Normal Inspection, No CVA Tenderness, No Vertebral Tenderness Extremity: Normal Capillary Refill, Normal Inspection, Normal Range of Motion, Non Tender, No Calf Tenderness, No Pedal Edema Neurologic/Psychiatric: Alert, Oriented x3, mobile ui developer II-XII Norm as Tested, Abnormal Gait, Depressed Affect, Motor Weakness (generalized) Skin: Normal Color, Warm/Dry Lymphatic: No Adenopathy Results/Procedures Lab Patient resulted labs reviewed. FIM Transfers Therapy Code Descriptions/Definitions Functional Lea Measure: 0=Not Assessed/NA 4=Minimal Assistance 1=Total Assistance 5=Supervision or Setup 2=Maximal Assistance 6=Modified Lea 3=Moderate Assistance 7=Complete IndependenceSCALE: Activities may be completed with or without assistive devices. 3-Phxhwkzsuw-ptuqwlq completes the activity by him/herself with no assistance from a helper. 5-Set-up or Clean-up Assistance-helper sets up or cleans up; patient completes activity. [place] assists only prior to or following the activity. 4-Supervision or Touching Assistance-helper provides verbal cues and/or touching/steadying and/or contact guard assistance as patient completes a ctivity. Assistance may be provided throughout the activity or intermittently. 3-Partial/Moderate Assistance-helper does LESS THAN HALF the effort. [place] lifts, holds or supports trunk or limbs, but provides less than half the effort. 2-Substantial/Maximal Assistance-helper does MORE THAN HALF the effort. [place] lifts or holds trunk or limbs and provides more than half the effort. 1-Nnteleecm-kdrkzd does ALL the effort. Patient does none of the effort to complete the activity. Or, the assistance of 2 or more helpers is required for the patient to complete the activity. If activity was not attempted, code reason: 7-Patient Refused. 9-Not Applicable-not attempted and the patient did not perform the activity before the current illness, exacerbation or injury. 10-Not Attempted due to Environmental Limitations-(lack of equipment, weather restraints, etc.). 88-Not Attempted due to Medical Conditions or Safety Concerns. ADL-Treatment Eating (QC): 6 Oral Hygiene (QC): 5 Shower/Bathe Self (QC): 7 (declined at this time) Upper Body Dressing (QC): 4 Lower Body Dressing (QC): 4 On/Off Footwear (QC): 4 (use of long handle shoe horn) Toileting Hygiene (QC): 4 Assessment/Plan Assessment and Plan Assess & Plan/Chief Complaint CHF myopathy Atrial fibrillation with RVR S/P MVR Chronic HFpEF HTN HLD T2DM COPD JF Depression Plan: Meds transferred from ICU Monitor INR Monitor HR Appreciate Dr Desai 10/12/2022: Supportive care Monitor closely 10/13/2022: Monitor INR Supportive care (1) Myopathy DARI GUAJARDO DO Oct 13, 2022 09:56
--- NOTE | 2022-10-13 10:06 | Physical Therapy Daily Note ---
PT Daily Note-Current Subjective PT was in room sitting in recliner upon arrival and good for therapy. PT states 5/10 pain in sternum area. with Pain increasing after having to get in and out of bed for evaluation. Nursing was notified and pain med was given. pt was tearful with increasing pain but was able to compose herself and resume therapy. Pt was left in recliner with call light and all needs met after therapy. Pain Section J - Health Conditions 1. Rarely or not at all 2. Occasionally 3. Frequently 4. Almost constantly 8. Unable to answer Pain Effect on Sleep: 3 Pain Interference with Therapy: 3 Pain Interference w/Day-to-Day: 3 Transfers SCALE: Activities may be completed with or without assistive devices. 3-Ciivbxwgvf-uaxcceo completes the activity by him/herself with no assistance from a helper. 5-Set-up or Clean-up Assistance-helper sets up or cleans up; patient completes activity. [place] assists only prior to or following the activity. 4-Supervision or Touching Assistance-helper provides verbal cues and/or touching/steadying and/or contact guard assistance as patient completes activity. Assistance may be provided throughout the activity or intermittently. 3-Partial/Moderate Assistance-helper does LESS THAN HALF the effort. [place] lifts, holds or supports trunk or limbs, but provides less than half the effort. 2-Substantial/Maximal Assistance-helper does MORE THAN HALF the effort. [place] lifts or holds trunk or limbs and provides more than half the effort. 9-Xcbtgzpuo-yxgwse does ALL the effort. Patient does none of the effort to complete the activity. Or, the assistance of 2 or more helpers is required for the patient to complete the activity. If activity was not attempted, code reason: 7-Patient Refused. 9-Not Applicable-not attempted and the patient did not perform the activity before the current illness, exacerbation or injury. 10-Not Attempted due to Environmental Limitations-(lack of equipment, weather restraints, etc.). 88-Not Attempted due to Medical Conditions or Safety Concerns. Weight Bearing Right Lower Extremity: Right Full Weight Bearing Left Lower Extremity: Left Full Weight Bearing Stair Training 4 Steps (QC): 4 Exercises Seated Therapy Exercises: Sit to stand, Long arc quads, Hip flexion, Kicking activity, Hamstring Curls, Hip abd/add, Glut set Treatments PT was able to preform car transfer, 8 stairs and ambulation of 150ft with CGA and 4WW this day. pt required extensive rest breaks after each activity secondary to SOB with O2 WFL at all times. Pt was able to ambulate distance with no sitting rest breaks but is unable to talk during ambulation and focuses on breathing. Assessment Current Status: Good Progress PT Penitentiary Goals Penitentiary Goals PT Penitentiary Goals Time Frame: Oct 18, 2022 Roll Left & Right (QC): 6 Sit to Lying (QC): 6 Lying-Sitting on Side/Bed(QC): 6 Sit to Stand (QC): 6 Chair/Stz-xz-Qwxtq Xfer(QC): 6 Toilet Transfer (QC): 6 Car Transfer (QC): 6 Does the Patient Walk: Yes Walk 10 feet (QC): 6 Walk 50ft with 2 Turns (QC): 6 Walk 150 ft (QC): 6 Walking 10ft on Uneven Surface: 6 1 Step (curb) (QC): 6 4 Steps (QC): 6 12 Steps (QC): 9 Picking up an Object (QC): 6 Does the Pt use WC or Scooter?: No Wheel 50 feet with 2 turns (QC: 9 Type: N/A Wheel 150 feet: 9 Type: N/A PT Plan Problem List Problem List: Activity Tolerance Treatment/Plan Treatment Plan: Continue Plan of Care Treatment Plan: Bed Mobility, Concurrent Therapy, Education, Functional Activity Terrell, Functional Strength, Group Therapy, Gait, Safety, Therapeutic Exercise, Transfers Treatment Duration: Oct 18, 2022 Frequency: At least 5 of 7 days/Wk (IRF) Estimated Hrs Per Day: 1.5 hours per day Patient and/or Family Agrees t: Yes Time Time In: 854 Time Out: 954 DATE: Oct 13, 2022 Total Billed Treatment Time: 60 Total Billed Treatment 1 FA x 2 GT EX Nakia Pryor PUMP SERVICE SUPERVISOR Oct 13, 2022 10:06
--- NOTE | 2022-10-13 10:36 | ST Cognitive Linguistic Eval ---
Speech Evaluation-General Medical Diagnosis CHF Myopathy Onset Date: Sep 30, 2022 Therapy Diagnosis Therapy Diagnosis: WNL COGNITION Precautions Precautions/Isolations: Fall Prevention, Standard Precautions Referral Referring Physician: Dr. Grant Reason for Referral: Evaluation/Treatment Medical History Pertinent Medical History: Atrial Fib, COPD, GERD, HTN, VA anemia, cardiomyopathy, CHF, COPD, DM II, edema, GERD, hypokalemia, hyponatremia, leukocytosis, obesity, JF, A-Fib, HTN, respiratory failure, tobacco abuse, NAVID, depression, tachycardia Current History S/P MVR on 09/30/2022; Admitted to ARU on 10/08/2022 for CHF myopathy and proximal weakness; Admitted to ICU on 10/09/2022 for A-Fib with RVR; Readmitted to ARU on 10/11/2022 Reviewed History: Yes Social History Current Living Status: Alone Speech PLF-Current Status Prior Level of Function Pt lives at home alone. States her in 2018. 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 She manages her own medications and uses a pill box. Pt also manages her own finances using a combination of auto bill pay and writing checks. She reports she keeps a record of what bills are due when and checks them off as she pays them. Subjective Pt sitting up in chair when RAIL SPECIALIST enters the room. Pt states her cognition is improving since being at [facility]. Pt is pleasant and cooperative throughout evaluation. Pain Numeric Pain Scale: 5-Moderate Pain Pain Description: Ache, Dull, Throbbing Comment: sternum Language Eval: Auditory Comprehends Simple Yes/No Ques: Functional Follows 1-Step Commands: Functional Follows General Conversations: Functional Language Eval: Verbal Language Completes Spontaneous Greeting: Functional Imitates Simple Words/Phrases: Functional Word Finding: Functional Requests Basic Needs: Functional Expresses Complex Ideas: Functional Objective Cognitive Domain Attention: WNL Memory: Mild Problem Solving: Functional Executive Functions: WNL Visuospatial Skills: WNL Composite Severity Rating: WNL Clock Drawing Severity Rating: WNL Score: 26 Objective Formal/Standardized Tests SLUMS Results Oral Motor/Speech Production Appears WNL Impression Pt's cognition appears WNL at this time. Pt did well on the SLUMS. She had slight difficulty recalling 2/5 words following a short delay, but was able to recall those 2 words with verbal prompts. Pt also missed one question following a short story. Pt does well with orientation questions, basic problem solving, executive functioning, generative naming, following basic directions, and mental manipulation. Pt to be seen for one more session to address medication management and writing a check. Speech Short Term Goals Short Term Goals Short Term Goals 1. Pt to complete medication and money management tasks with 80% accuracy independently. Speech Assisted Goals Assisted Goals Pt to complete medication and money management with 100% accuracy independently. Speech-Plan Patient/Family Goals Patient/Family Goals: Pt's goal is to return home at [facility]. Treatment Plan Speech Therapy Treatment Plan: Continue Plan of Care Frequency: 1 time per week Estimated Hrs Per Day: .5 hour per day Rehab Potential: Good Pt/Family Agrees to Plan: Yes Safety Risks/Education Teaching Recipient: Patient Teaching Methods: Discussion Response to Teaching: Verbalize Understanding Education Topics Provided: Pt educated on the role of the RAIL SPECIALIST, purpose of evaluation, results, and recommendations. Pt receptive and verbalized understanding. Time Speech Therapy Time In: 09:55 Speech Therapy Time Out: 10:10 DATE: Oct 13, 2022 Total Billed Time: 15 Billed Treatment Time S/L Greg Monroe Speech Therapy Oct 13, 2022 10:36
--- NOTE | 2022-10-13 10:51 | ST Dysphagia Evaluation ---
Speech Evaluation-General Medical Diagnosis CHF Myopathy Onset Date: Sep 30, 2022 Therapy Diagnosis Therapy Diagnosis: MILD Oral dysphagia Precautions Precautions/Isolations: Fall Prevention, Standard Precautions Referral Referring Physician: Dr. Grant Reason for Referral: Evaluation/Treatment Medical History Pertinent Medical History: Atrial Fib, COPD, GERD, HTN, CO anemia, cardiomyopathy, CHF, COPD, DM II, edema, GERD, hypokalemia, hyponatremia, leukocytosis, obesity, JF, A-Fib, HTN, respiratory failure, tobacco abuse, NAVID, depression, tachycardia Current History S/P MVR on 09/30/2022; Admitted to ARU on 10/08/2022 for CHF myopathy and proximal weakness; Admitted to ICU on 10/09/2022 for A-Fib with RVR; Readmitted to ARU on 10/11/2022 Reviewed History: Yes Social History Current Living Status: Alone Speech PLF/Current-Dysphagia Prior Level of Function Pt on regular diet with thin liquids. Subjective Pt sitting up in chair when AVIONICS TECHNICIAN arrives. Following cognitive evaluation, pt states she has been having difficulty with swallowing. After talking with pt, it is more oral irritation. Pt had teeth removed at bedside at [facility] prior to surgery. Pt states she was not given any antibiotics. Pt pleasant and cooperative throughout evaluation. Cognitive Status Patient Orientation: Person, Place, Situation Oral Motor Skills Dentition: Natural (Missing teeth) Current Food Consistancy: Regular, Thin Liquids Ability to Follow Directions: Excellent Oral Expression Ability: No Impairment Voice Voice Phonatory-Based Quality: Normal Voice Pitch: Normal Voice Loudness: Normal Face Facial Symmetry: Symmetrical Oral-Facial Assessment Oral-Facial Dentition: Normal Labial Seal Description: Normal Dysphagia Evaluation Dietary Recommendations: Regular Liquid Recommendations: Thin Dysphagia Evaluation Summary Pt presenting with mild oral dysphagia due to irritation in mouth potentially from having teeth pulled prior to operation. Pt presents with what appears to be a small blister on the right soft palate, pt has raw area on right gum where tooth was pulled, pt also demonstrates redness on lower left gum where tooth was pulled. Pt denies anything getting caught in her throat or coughing while ea ting/drinking. She states hard solids make her mouth hurt as it feels raw/irritated, however it is improving. Nurse notified and will contact the dr. AVIONICS TECHNICIAN discussed the option of changing to a softer diet consistency, pt denies and states she is learning which foods she can tolerate orally and which ones she cannot. Speech Short Term Goals Short Term Goals Short Term Goals 1. Pt to complete medication and money management tasks with 80% accuracy independently. Speech Detention Goals Electrical Solderer Goals 1. Pt to complete medication and money management with 100% accuracy independently. 2. Tolerate least restrictive diet consistency with no s/sx of aspiration. Speech-Plan Patient/Family Goals Patient/Family Goals: Pt's goal is to return home at [facility]. Treatment Plan Speech Therapy Treatment Plan: Continue Plan of Care Frequency: 1 time per week (As needed/consult) Estimated Hrs Per Day: .5 hour per day (as needed/consult) Rehab Potential: Good Pt/Family Agrees to Plan: Yes Safety Risks/Education Teaching Recipient: Patient Teaching Methods: Discussion Response to Teaching: Verbalize Understanding Education Topics Provided: Pt educated on role of AVIONICS TECHNICIAN, purpose of evaluation, results, and recommendations. Pt receptive and verbalized understanding. Time Speech Therapy Time In: 10:10 Speech Therapy Time Out: 10:25 DATE: Oct 13, 2022 Total Billed Time: 15 Billed Treatment Time Greg Arana Speech Therapy Oct 13, 2022 10:51
[2022-10-13] MEDS: MAGIC MOUTHWASH, ADULT 155 ML BOTTLE PO SCH ×3 (14:00→21:30)
--- NOTE | 2022-10-13 14:50 | Occupational Ther Daily Note ---
OT Current Status-Daily Note Subjective Pt lying in bed upon arrival, agreed to therapy, alert and cooperative. ADL-Treatment Pt ambulated with 4WW, CGA to bathroom, sat on shower bench and completed shower with SBA required, Pt sat 100% of the time, was able to cleanse body except buttocks area, pt unable to reach on this date, due to fatigue. Pt then dried self off, ambulated with 4WW and completed upper and lower body dressing, with set up assist. Pt required multiple recovery breaks, before and after shower due to fatigue and needing to catch breath. Pt was educated on the importance of working on getting stronger while on ARU, pt verbalized understanding. OT will continue to work on strengthening and building up endurance for daily functional tasks required for ADLs. Therapy Code Descriptions/Definitions Functional [place] Measure: 0=Not Assessed/NA 4=Minimal Assistance 1=Total Assistance 5=Supervision or Setup 2=Maximal Assistance 6=Modified [place] 3=Moderate Assistance 7=Complete IndependenceSCALE: Activities may be completed with or without assistive devices. 1-Ziwsjjbqgl-ushhcoy completes the activity by him/herself with no assistance from a helper. 5-Set-up or Clean-up Assistance-helper sets up or cleans up; patient completes activity. [place] assists only prior to or following the activity. 4-Supervision or Touching Assistance-helper provides verbal cues and/or touching/steadying and/or contact guard assistance as patient completes activity. Assistance may be provided throughout the activity or intermittently. 3-Partial/Moderate Assistance-helper does LESS THAN HALF the effort. [place] lifts, holds or supports trunk or limbs, but provides less than half the effort. 2-Substantial/Maximal Assistance-helper does MORE THAN HALF the effort. [place] lifts or holds trunk or limbs and provides more than half the effort. 5-Ysgbrgowy-wzcrom does ALL the effort. Patient does none of the effort to complete the activity. Or, the assistance of 2 or more helpers is required for the patient to complete the activity. If activity was not attempted, code reason: 7-Patient Refused. 9-Not Applicable-not attempted and the patient did not perform the activity before the current illness, exacerbation or injury. 10-Not Attempted due to Environmental Limitations-(lack of equipment, weather restraints, etc.). 88-Not Attempted due to Medical Conditions or Safety Concerns. Education OT Patient Education: Energy conservation, Progress toward Goal/Update tx plan, Purpose of tx/functional activities, Reviewed precautions, Rehab process Teaching Recipient: Patient Teaching Methods: Discussion Response to Teaching: Verbalize Understanding OT Short Term Goals Short Term Goals Time Frame: Oct 17, 2022 Toileting hygiene: 5 Shower/bathe self: 5 Upper body dressin Lower body dressin OT Soup Person Goals Soup Person Goals Acute change in mental status: 0 Inattention: 0 Disorganized thinkin Altered level of consciousness: 0 Oral Hygiene (QC): 6 Toileting Hygiene (QC): 6 Shower/Bathe Self (QC): 6 Upper Body Dressing (QC): 6 Lower Body Dressing (QC): 6 On/Off Footwear (QC): 6 1=Demonstrate adherence to instructed precautions during ADL tasks. 2=Patient will verbalize/demonstrate understanding of assistive devices/modifications for ADL. 3=Patient will improve strength/tolerance for activity to enable patient to perform ADL's. OT Education/Plan Problem List/Assessment Assessment: Decreased Activ Tolerance, Decreased UE Strength Discharge Recommendations Plan/Recommendations: Continue POC Treatment Plan/Plan of Care Patient would benefit from OT for education, treatment and training to promote independence in ADL's, mobility, safety and/or upper extremity function for ADL's. Plan of Care: ADL Retraining, Concurrent Therapy, Functional Mobility, Group Exercise/Act as Ind, UE Funct Exercise/Act Treatment Duration: Oct 20, 2022 Frequency: At least 5 of 7 days/Wk (IRF) Estimated Hrs Per Day: 1.5 hours per day Agreement: Yes Rehab Potential: Good Time Start Time: 13:30 Stop Time: 14:30 DATE: Oct 13, 2022 Total Time Billed (hr/min): 60 Billed Treatment Time 1 visit ADL 4 (60) Deandra Hubbard COTA Oct 13, 2022 14:50
--- NOTE | 2022-10-13 16:48 | Wound Care Assessment ---
Wound Care Assessment Date Seen by Provider: Oct 13, 2022 Time Seen by Provider: 16:42 Chief Complaint Chest tube wounds HPI This pleasant 62 year old patient has an extensive cardiac history with prolonged hospitalization. She had a severe mitral stenosis with resulting life-threatening CHF, was admitted to , diuresed and dialyzed, and subsequently underwent mitral valve replacement. She has struggled with Afib with RVR following. She has lost a significant amount of weight since hospitalization. However, her albumin is reasonable. Her glycemic control is wonderful. She has severe post-operative/anemia of chronic kidney disease. Since her cardiac output has improved, her GFR has rebounded. She notes that upon d/c from [facility], her chest tubes were removed. She does have small dehisced open areas resulting. Per wound care nursing staff, these have improved significantly during her stay. She prefer to avoid silver alginate but is agreeable to Vashe cleansing and BFD daily. We will continue as such for now. Past Medical History: Admits Diabetes Type II, Admits Heart Disease CHF, Mitral valve replacement, COPD, refractory anemia, acute renal failure (improved), obesity (BMI 41) Smoking Status: Former Smoker Alcohol Use: Denies Use Review of Systems General: Other (ity) Pulmonary: Dyspnea (improved) Cardiovascular: Chest Pain (at surgical site) Neurological: Weakness Exam Vital Signs Date Time Temp Pulse Resp B/P (MAP) Pulse Ox O2 Delivery O2 Flow Rate FiO2 10/13/22 13:00 99 10/13/22 09:10 Room Air 10/13/22 08:02 36.0 18 113/55 (74) 97 10/12/22 08:28 2.00 Capillary Refill : General Appearance: no apparent distress, obese HEENT: other (hearing wnl) Neck: full range of motion Cardiovascular: other (edema greatly improved) Respiratory: no respiratory distress, no accessory muscle use Extremities: normal range of motion Neurologic/Psychiatric: alert, normal mood/affect, oriented x 3 Wound assessment: Superior and inferior wounds with same assessment: 0.3x1.5x0.8cm. The epithelialization is small, there is no tunneling or undermining, drainage is large and serosanguinous, granulation is large and pink, necrotic is small and slough. Margins flat Results Laboratory Tests 10/12/22 17:10: Glucometer 105 7/23/23 20:55: Glucometer 92 10/13/22 05:35: Glucometer 101 10/13/22 12:21: Glucometer 111H Assessment/Plan/Dx Assessment: 1. Chest tube wounds 2. Refractory anemia 3. Acute renal injury (resolved) 4. DM2 5. COPD 6. Obesity Plan: 1. Vashe cleansing/soak daily and secure with BFD. Monitor closely for signs of infection 2. Defer to primary team 3. Greatly improved 4. Well controlled 5. Defer to primary team 6. Significant weight loss. Defer to primary team. On GlucerDANIEL Vargas MD Oct 13, 2022 16:48
[2022-10-13] MEDS: MAGIC MOUTHWASH (ADULT) PO SCH ×12 (16:49→21:47)
[2022-10-13] MEDS: warFARin 4 MG (COUMADIN) TAB PO SCH (18:16)
[2022-10-13] MEDS: warFARin 2.5 MG (COUMADIN) TAB PO SCH (18:16)
[2022-10-13 20:15] VITALS: BP 112/57
--- NOTE | 2022-10-14 05:41 | PM&R Progress Note ---
Subjective HPI/CC On Admission Date Seen by Provider: Oct 14, 2022 Time Seen by Provider: 11:00 Subjective/Events-last exam 10/14/2022: Doing well Increased ambulation No falls Labs stable 10/13/2022: Doing well Monitor closely Lungs are clear No pain Reviewed meds 10/12/2022: Doing well Anxious about "further complications" and I tired to reassure Patient has significant mental illness giving rise to anxiety and despondency and tearfulness Review of Systems General: Fatigue, Malaise Objective Exam Vital Signs Vital Signs Date Time Temp Pulse Resp B/P (MAP) Pulse Ox O2 Delivery O2 Flow Rate FiO2 10/15/22 01:00 85 10/14/22 21:30 97 Room Air 10/14/22 20:00 35.9 18 104/52 (69) 10/12/22 08:28 2.00 Capillary Refill : General Appearance: No Apparent Distress, WD/WN, Chronically ill, Obese HEENT: PERRL/EOMI, Normal ENT Inspection, Pharynx Normal Neck: Full Range of Motion, Normal Inspection, Non Tender, Supple, Carotid Bruit Respiratory: Chest Non Tender, Lungs Clear, Normal Breath Sounds, No Accessory Muscle Use, No Respiratory Distress Cardiovascular: Regular Rate, Rhythm, No Edema, No Gallop, No JVD, No Murmur, Normal Peripheral Pulses Gastrointestinal: Normal Bowel Sounds, No Organomegaly, No Pulsatile Mass, Non Tender, Soft Back: Normal Inspection, No CVA Tenderness, No Vertebral Tenderness Extremity: Normal Capillary Refill, Normal Inspection, Normal Range of Motion, Non Tender, No Calf Tenderness, No Pedal Edema Neurologic/Psychiatric: Alert, Oriented x3, expediter clerk II-XII Norm as Tested, Abnormal Gait, Depressed Affect, Motor Weakness (generalized) Skin: Normal Color, Warm/Dry Lymphatic: No Adenopathy Results/Procedures Lab Laboratory Tests 10/14/22 06:23 Patient resulted labs reviewed. FIM Transfers Therapy Code Descriptions/Definitions Functional [place] Measure: 0=Not Assessed/NA 4=Minimal Assistance 1=Total Assistance 5=Supervision or Setup 2=Maximal Assistance 6=Modified [place] 3=Moderate Assistance 7=Complete IndependenceSCALE: Activities may be completed with or without assistive devices. 4-Igqncdrmic-hqoyrjn completes the activity by him/herself with no assistance from a helper. 5-Set-up or Clean-up Assistance-helper sets up or cleans up; patient completes activity. [place] assists only prior to or following the activity. 4-Supervision or Touching Assistance-helper provides verbal cues and/or touching/steadying and/or contact guard assistance as patient completes activity. Assistance may be provided throughout the activity or intermittently. 3-Partial/Moderate Assistance-helper does LESS THAN HALF the effort. [place] lifts, holds or supports trunk or limbs, but provides less than half the effort. 2-Substantial/Maximal Assistance-helper does MORE THAN HALF the effort. [place] lifts or holds trunk or limbs and provides more than half the effort. 7-Ybuicgrff-johksv does ALL the effort. Patient does none of the effort to complete the activity. Or, the assistance of 2 or more helpers is required for t he patient to complete the activity. If activity was not attempted, code reason: 7-Patient Refused. 9-Not Applicable-not attempted and the patient did not perform the activity before the current illness, exacerbation or injury. 10-Not Attempted due to Environmental Limitations-(lack of equipment, weather restraints, etc.). 88-Not Attempted due to Medical Conditions or Safety Concerns. Roll Left to Right (QC): 4 (CGA ) Sit to Lying (QC): 4 (CGA ) Sit to Stand (QC): 4 (CGA ) Chair/Oqc-nx-Wvwiq Xfer(QC): 4 (CGA ) Car Transfer (QC): 4 (CGA ) Gait Training Does the Patient Walk?: Yes Walk 10 feet (QC): 4 (CGA ) Walk 50 ft with 2 Turns(QC): 4 (CGA ) Walk 150 ft (QC): 4 (CGA ) Walking 10ft/uneven surface-QC: 4 (CGA ) Gait Assistive Device: Walker 4 Wheeled Wheelchair Training Does the Pt Use a Wheelchair?: No Wheel 50 ft with 2 turns (QC): 9 Wheel 150 ft (QC): 9 Type of Wheelchair: N/A Stair Training #of Steps: 8 1 Step (curb) (QC): 4 (CGA ) 4 Steps (QC): 4 (CGA ) 12 Steps (QC): 9 (Pt has 3 stairs to enter/exit the home. ) Balance Picking up an Object (QC): 4 (CGA ) ADL-Treatment Eating (QC): 6 Oral Hygiene (QC): 5 Shower/Bathe Self (QC): 7 (declined at this time) Upper Body Dressing (QC): 4 Lower Body Dressing (QC): 4 On/Off Footwear (QC): 4 (use of long handle shoe horn) Toileting Hygiene (QC): 4 Assessment/Plan Assessment and Plan Assess & Plan/Chief Complaint CHF myopathy Atrial fibrillation with RVR S/P MVR Chronic HFpEF HTN HLD T2DM COPD JF Depression Plan: Meds transferred from ICU Monitor INR Monitor HR Appreciate Dr Desai 10/12/2022: Supportive care Monitor closely 10/13/2022: Monitor INR Supportive care 10/14/2022: Monitor closely (1) Myopathy DARI GUAJARDO DO Oct 14, 2022 05:41
[2022-10-14] MEDS: CATHETER FLUSH 10 ML SYR IVP SCH (06:32)
[2022-10-14] MEDS: BUMETANIDE 1 MG TABLET PO SCH ×2 (06:32→17:13)
[2022-10-14 06:38] LABS: BASOPHILS # (AUTO) 0.1 10^3/uL (0.0-0.1); BASOPHILS % (AUTO) 1 % (0-10); EOSINOPHILS # (AUTO) 0.6 10^3/uL (0.0-0.3); EOSINOPHILS % (AUTO) 6 % (0-10); HEMATOCRIT 31 % (35-52); HEMOGLOBIN 8.9 g/dL (11.5-16.0); LYMPHOCYTES # (AUTO) 1.7 10^3/uL (1.0-4.0); LYMPHOCYTES % (AUTO) 15 % (12-44); MEAN CORPUSCULAR HEMOGLOBIN 26 pg (25-34); MEAN CORPUSCULAR HGB CONC 29 g/dL (32-36); MEAN CORPUSCULAR VOLUME 90 fL (80-99); MEAN PLATELET VOLUME 8.8 fL (9.0-12.2); MONOCYTES # (AUTO) 1.1 10^3/uL (0.0-1.0); MONOCYTES % (AUTO) 10 % (0-12); NEUTROPHILS % (AUTO) 69 % (42-75); PLATELET COUNT 273 10^3/uL (130-400); WHITE BLOOD COUNT 11.7 10^3/uL (4.3-11.0)
[2022-10-14 06:52] LABS: INR 3.2 (0.8-1.4); PROTHROMBIN TIME PATIENT 32.3 SEC (12.2-14.7)
[2022-10-14 07:04] LABS: ALBUMIN 3.3 GM/DL (3.2-4.5); BILIRUBIN,TOTAL 0.6 MG/DL (0.1-1.0); CALCIUM 9.3 MG/DL (8.5-10.1); CREATININE SERUM 0.91 MG/DL (0.60-1.30); POTASSIUM 4.6 MMOL/L (3.6-5.0); TOTAL PROTEIN 6.4 GM/DL (6.4-8.2)
[2022-10-14] MEDS: inSUlin ASPART (NovoLOG) 1 UNIT/0.01 ML (CHARGE PER UNIT) SC SCH ×4 (07:23→21:30)
[2022-10-14 08:00] VITALS: BP 120/59
[2022-10-14] MEDS: PANTOPRAZOLE 20 MG TABLET (PROTONIX) PO SCH (08:07)
[2022-10-14] MEDS: SENNA W/DOCUSATE (SENOKOT S) TABLET PO SCH ×2 (08:07→21:30)
[2022-10-14] MEDS: KCL 10 MEQ TAB (MICRO K) PO SCH ×2 (08:07→21:31)
[2022-10-14] MEDS: polyethylene glycoL POWDER 17 GM (MIRALAX) PACK PO SCH ×2 (08:08→21:30)
[2022-10-14] MEDS: AMIODARONE 200 MG TABLET PO SCH (08:08)
[2022-10-14] MEDS: MAGIC MOUTHWASH, ADULT 155 ML BOTTLE PO SCH ×4 (08:08→21:30)
[2022-10-14] MEDS: dilTIAZem120 MG (CARDIZEM CD) CAP PO SCH (08:08)
[2022-10-14] MEDS: DOCUSATE SODIUM 100 MG CAPSULE PO SCH ×2 (08:08→21:30)
[2022-10-14] MEDS: ASPIRIN enteric coated 81MG TABLET PO SCH (08:08)
[2022-10-14] MEDS: INVOKAMET PO SCH (08:11)
[2022-10-14] MEDS: VIIBRYD 40 MG PO SCH (08:11)
[2022-10-14] MEDS: MAGIC MOUTHWASH (ADULT) PO SCH ×16 (08:12→21:31)
--- NOTE | 2022-10-14 08:56 | Cardiology Progress Note ---
Subjective Date Seen by Provider: Oct 14, 2022 Time Seen by Provider: 08:05 Subjective/Events-last exam Patient with PT. Denies any chest pain or dyspnea. Objective-Cardiology Exam Last Set of Vital Signs Vital Signs 10/12/22 10/14/22 08:28 09:51 Pulse Ox 97 O2 Delivery Room Air O2 Flow Rate 2.00 I&O Intake and Output 10/14/22 00:00 Intake Total 1450 ml Balance 1450 ml Intake Oral 1450 ml # Voids 6 # Bowel Movements 1 General: Alert, Oriented X3, Cooperative HEENT: Atraumatic, PERRLA Lungs: Clear to Auscultation, Normal Air Movement Heart: Normal S1, Normal S2 Abdomen: Normal Bowel Sounds, Soft Skin: No Rashes, No Significant Lesion Neuro: Normal Speech Psych/Mental Status: Mental Status NL, Mood NL Results Lab Laboratory Tests 10/14/22 06:23 A/P-Cardiology Admission Diagnosis Mitral stenosis, s/p Mitral valve replacement afib HTN DM Assessment/Plan Paroxysmal atrial fibrillation, Converted to sinus rhythm. Maintained on Cardizem CD 120 mg daily, Amiodarone 200 mg daily. Continue warfarin. Patient does not want to travel to [place] or [place]. INR 3.2. Will have her f/u in our office Mitral valve stenosis, history of MVR with mechanical valve with Dr. Perry at approx 2 weeks ago. Incision and CT sites C/D/I without erythema or drainage. HTN, continue to monitor blood pressure HLP, continue to monitor as outpatient DM, management per primary team Generalized debility/weakness, continue PT/OT Supervisory-Addendum Brief Supervisory Addendum Participated in pt care: history, MDM, physical Personally performed: exam, history, MDM Care discussed with: MARY Results interpretation: Verified all documentation Notes: Patient was seen and evaluated with Rebecca, examination performed, management plan was discussed, agree with the current scribed note, I made few changes to the note using Italic font Patient was seen during physical therapy session, has been doing well. Denies any chest pain Improving slowly INR 3.2, will monitor daily INR. Continue on current dose of warfarin for now REBECCA CARRANZA Oct 14, 2022 08:56 ASIA RICE MD Oct 14, 2022 10:41
--- NOTE | 2022-10-14 09:08 | Physical Therapy Daily Note ---
PT Daily Note-Current Subjective Pt sitting in recliner upon arrival. Nurse had just given morning meds. Pt reports feeling better each day and agrees to PT. Pain Numeric Pain Scale: 3 Location: Incisional Location Body Site: Chest Pain Description: Ache Section J - Health Conditions 1. Rarely or not at all 2. Occasionally 3. Frequently 4. Almost constantly 8. Unable to answer Pain Effect on Sleep: 2 Pain Interference with Therapy: 2 Pain Interference w/Day-to-Day: 2 Mental Status Patient Orientation: Person, Place, Time, Situation Transfers SCALE: Activities may be completed with or without assistive devices. 6-Cswjxjpbfq-bpetxtv completes the activity by him/herself with no assistance from a helper. 5-Set-up or Clean-up Assistance-helper sets up or cleans up; patient completes activity. [place] assists only prior to or following the activity. 4-Supervision or Touching Assistance-helper provides verbal cues and/or touching/steadying and/or contact guard assistance as patient completes activity. Assistance may be provided throughout the activity or intermittently. 3-Partial/Moderate Assistance-helper does LESS THAN HALF the effort. [place] lifts, holds or supports trunk or limbs, but provides less than half the effort. 2-Substantial/Maximal Assistance-helper does MORE THAN HALF the effort. [place] lifts or holds trunk or limbs and provides more than half the effort. 0-Tyjcbrohd-oqpobs does ALL the effort. Patient does none of the effort to complete the activity. Or, the assistance of 2 or more helpers is required for the patient to complete the activity. If activity was not attempted, code reason: 7-Patient Refused. 9-Not Applicable-not attempted and the patient did not perform the activity before the current illness, exacerbation or injury. 10-Not Attempted due to Environmental Limitations-(lack of equipment, weather restraints, etc.). 88-Not Attempted due to Medical Conditions or Safety Concerns. Sit to Stand (QC): 5 (SBA) Weight Bearing Right Lower Extremity: Right Full Weight Bearing Left Lower Extremity: Left Full Weight Bearing Gait Training Does the Patient Walk?: Yes Distance: 100' x2 Walk 10 feet (QC): 5 (SBA) Walk 50 ft with 2 Turns(QC): 5 (SBA) Walk 150 ft (QC): 5 (SBA) Gait Assistive Device: Walker 4 Wheeled Pt walks w/slightly flexed posture, flexing at hips due to proximal weakness. Exercises Supine Ex: Ankle pumps, Quad Set, Heel Slides, Hip abd/add Seated Therapy Exercises: Ankle pumps, Long arc quads, Hip flexion, Hip abd/add, Glut set Seated Reps: 15 NuStep Minutes: 5 NuStep Workload: 3 Treatments Pt Educ. over benefits of PT for increasing strength/activity rudy. for improved progress of home. TF to standing and amb. in hallway. Pt uses NuStep before taking RB. SPRING SETTER issues and reviews written HEP for Supine & Seated Ex. Pt returns to recliner to rest w/all needs met, call light in hand. Assessment Current Status: Good Progress Pt continues to walk w/flexed posture at hips due to proximal weakness. SPRING SETTER issues EX and works w/NuStep for strength & act. rudy. PT Detention Goals Junior Accountant Goals PT Detention Goals Time Frame: Oct 18, 2022 Roll Left & Right (QC): 6 (Pt will be Mod I with functional mobility with the 4WW, in order to be at PLOF and safely return home, alone. ) Sit to Lying (QC): 6 (Pt will be Mod I with functional mobility with the 4WW, in order to be at PLOF and safely return home, alone. ) Lying-Sitting on Side/Bed(QC): 6 (Pt will be Mod I with functional mobility with the 4WW, in order to be at PLOF and safely return home, alone. ) Sit to Stand (QC): 6 (Pt will be Mod I with functional mobility with the 4WW, in order to be at PLOF and safely return home, alone. ) Chair/Jzz-hi-Bbdcs Xfer(QC): 6 (Pt will be Mod I with functional mobility with the 4WW, in order to be at PLOF and safely return home, alone. ) Toilet Transfer (QC): 6 (Pt will be Mod I with functional mobility with the 4WW, in order to be at PLOF and safely return home, alone. ) Car Transfer (QC): 6 (Pt will be Mod I with functional mobility with the 4WW, in order to be at PLOF and safely return home, alone. ) Does the Patient Walk: Yes Walk 10 feet (QC): 6 (Pt will be Mod I with functional mobility with the 4WW, in order to be at PLOF and safely return home, alone. ) Walk 50ft with 2 Turns (QC): 6 (Pt will be Mod I with functional mobility with the 4WW, in order to be at PLOF and safely return home, alone. ) Walk 150 ft (QC): 6 (Pt will be Mod I with functional mobility with the 4WW, in order to be at PLOF and safely return home, alone. ) Walking 10ft on Uneven Surface: 6 (Pt will be Mod I with functional mobility with the 4WW, in order to be at PLOF and safely return home, alone. ) 1 Step (curb) (QC): 6 (Pt will be Mod I with functional mobility with the 4WW, in order to be at PLOF and safely return home, alone. ) 4 Steps (QC): 6 (Pt will be Mod I with functional mobility with the 4WW, in order to be at PLOF and safely return home, alone. ) 12 Steps (QC): 9 (Pt has 3 steps to enter/exit home ) Picking up an Object (QC): 6 (Pt will be Mod I with functional mobility with the 4WW, in order to be at PLOF and safely return home, alone. ) Does the Pt use WC or Scooter?: No Wheel 50 feet with 2 turns (QC: 9 Type: N/A Wheel 150 feet: 9 Type: N/A PT Plan Problem List Problem List: Activity Tolerance, Functional Strength, Gait Treatment/Plan Treatment Plan: Continue Plan of Care Treatment Plan: Bed Mobility, Concurrent Therapy, Education, Functional Activity [place], Functional Strength, Group Therapy, Gait, Safety, Therapeutic Exercise, Transfers Treatment Duration: Oct 18, 2022 Frequency: At least 5 of 7 days/Wk (IRF) Estimated Hrs Per Day: 1.5 hours per day Patient and/or Family Agrees t: Yes Safety Risks/Education Patient Education: Gait Training, Issued Written HEP, Correct Positioning, Safety Issues Teaching Recipient: Patient Teaching Methods: Discussion Response to Teaching: Verbalize Understanding Time Time In: 800 Time Out: 900 DATE: Oct 14, 2022 Total Billed Treatment Time: 60 Total Billed Treatment 1, GT (20m), EX x2 (25m) & FA (15m) KLEVER ROY SPRING SETTER Oct 14, 2022 09:08
[2022-10-14] MEDS: FLUTICASONE/VILANTEROL 100 MCG 14'S (BREO) IH SCH (09:51)
--- NOTE | 2022-10-14 10:18 | Speech Therapy Daily Note ---
Speech Daily Progress Note Subjective Date Seen by Provider: Oct 14, 2022 Time Seen by Provider: 09:30 Pt sitting up in recliner on her phone when the DIRECTOR OF GROUP SALES enters the room. Pt states she is doing well and she had a pain medication earlier this morning. Pt pleasant and cooperative throughout the session. Pain Numeric Pain Scale: 4 Comment: sternum Objective Pt completes check writing and balancing a checkbook register with 100% accuracy independently. Pt completes medication management task with 100% accuracy independently. Pt states the mouthwash that was prescribed by the dr has helped her mouth sig nificantly and she can already tell a difference with the foods she can eat. Assessment Assessment Current Status: Good Progress Treatment Plan Discontinue ST, Goals Met Speech Short Term Goals Short Term Goals Short Term Goals 1. Pt to complete medication and money management tasks with 80% accuracy independently. Speech Sheriff Officer Goals Group Home Goals 1. Pt to complete medication and money management with 100% accuracy independently. 2. Tolerate least restrictive diet consistency with no s/sx of aspiration. Speech-Plan Patient/Family Goals Patient/Family Goals: Pt's goal is to return home. Treatment Plan Speech Therapy Treatment Plan: Discontinue ST, Goals Met Treatment Duration: Oct 13, 2022 Frequency: Modified Program (IRF) Estimated Hrs Per Day: Other Rehab Potential: Good Pt/Family Agrees to Plan: Yes Safety Risks/Education Teaching Recipient: Patient Teaching Methods: Discussion Response to Teaching: Verbalize Understanding Education Topics Provided: Pt educated on purpose of speech therapy tasks and recommendation to discharge from speech therapy. Pt receptive and verbalized understanding. Time Speech Therapy Time In: 09:30 Speech Therapy Time Out: 09:50 DATE: Oct 14, 2022 Total Billed Time: 20 Billed Treatment Time S/L Greg Dubois Speech Therapy Oct 14, 2022 10:18
--- NOTE | 2022-10-14 11:11 | Occupational Ther Daily Note ---
OT Current Status-Daily Note Subjective Pt sitting in chair upon arrival, alert and cooperative, agreed to therapy. No pain mentioned at this time. Mental Status/Objective Patient Orientation: Person, Place, Time, Situation ADL-Treatment Pt ambulated to toilet in bathroom, using 4WW, independently. Pt completed toilet transfer and toilet hygiene, required therapist to cleanse buttocks, due to limited reach. Therapist recomended and asked about pt using toilet tongs and pt refused to use, pt has own method of cleansing buttocks at home, using a l funmi down method on the bed. Pt transferred off toilet independently. Pt used 4WW to get to sink and independently completed oral hygiene and grooming, pt did require a lengthy recovery break after standing at sink. Pt then ambulated on ARU to shower room. Pt demonstrated how pt gets into tub shower at home using bar that is install in her home already, pt does have shower bench chair that is small. Therapist showed pt and recommended she get a tub transfer bench, pt refused and stated " I don't want to spend the money on that". Pt demonstrated ability to safely get in and out of tub shower using only shower bench and similar grab bar she has at home. Pt then ambulated back to room using 4WW, requiring multiple lengthy recovery breaks during that time. Pt sat back down in chair in room, and took another recovery breaks. Pt completed 3 B UE required skilled instruction for correct technique using yellow theraband, staying with in sternal precautions, pt did well. Pt was left sitting in chair, call light within reach, all needs met at this time. Therapy Code Descriptions/Definitions Functional [place] Measure: 0=Not Assessed/NA 4=Minimal Assistance 1=Total Assistance 5=Supervision or Setup 2=Maximal Assistance 6=Modified [place] 3=Moderate Assistance 7=Complete IndependenceSCALE: Activities may be completed with or without assistive devices. 3-Yfobmmoibd-jmsnmcs completes the activity by him/herself with no assistance from a helper. 5-Set-up or Clean-up Assistance-helper sets up or cleans up; patient completes activity. [place] assists only prior to or following the activity. 4-Supervision or Touching Assistance-helper provides verbal cues and/or touc leida/steadying and/or contact guard assistance as patient completes activity. Assistance may be provided throughout the activity or intermittently. 3-Partial/Moderate Assistance-helper does LESS THAN HALF the effort. [place] lifts, holds or supports trunk or limbs, but provides less than half the effort. 2-Substantial/Maximal Assistance-helper does MORE THAN HALF the effort. [place] lifts or holds trunk or limbs and provides more than half the effort. 1-Mxmzfszxv-asknrv does ALL the effort. Patient does none of the effort to complete the activity. Or, the assistance of 2 or more helpers is required for the patient to complete the activity. If activity was not attempted, code reason: 7-Patient Refused. 9-Not Applicable-not attempted and the patient did not perform the activity before the current illness, exacerbation or injury. 10-Not Attempted due to Environmental Limitations-(lack of equipment, weather restraints, etc.). 88-Not Attempted due to Medical Conditions or Safety Concerns. Education OT Patient Education: Energy conservation, Progress toward Goal/Update tx plan, Purpose of tx/functional activities, Transfer techniques Teaching Recipient: Patient Teaching Methods: Demonstration, Handout, Discussion Response to Teaching: Verbalize Understanding, Return Demonstration OT Short Term Goals Short Term Goals Time Frame: Oct 17, 2022 Toileting hygiene: 5 Shower/bathe self: 5 Upper body dressin Lower body dressin OT Claims Adjustor Goals Claims Adjustor Goals Acute change in mental status: 0 Inattention: 0 Disorganized thinkin Altered level of consciousness: 0 Oral Hygiene (QC): 6 Toileting Hygiene (QC): 6 Shower/Bathe Self (QC): 6 Upper Body Dressing (QC): 6 Lower Body Dressing (QC): 6 On/Off Footwear (QC): 6 1=Demonstrate adherence to instructed precautions during ADL tasks. 2=Patient will verbalize/demonstrate understanding of assistive devices/modifications for ADL. 3=Patient will improve strength/tolerance for activity to enable patient to perform ADL's. OT Education/Plan Problem List/Assessment Assessment: Decreased Activ Tolerance, Decreased UE Strength Discharge Recommendations Plan/Recommendations: Continue POC Treatment Plan/Plan of Care Patient would benefit from OT for education, treatment and training to promote independence in ADL's, mobility, safety and/or upper extremity function for ADL's. Plan of Care: ADL Retraining, Concurrent Therapy, Functional Mobility, Group Exercise/Act as Ind, UE Funct Exercise/Act Treatment Duration: Oct 20, 2022 Frequency: At least 5 of 7 days/Wk (IRF) Estimated Hrs Per Day: 1.5 hours per day Agreement: Yes Rehab Potential: Good Time Start Time: 10:00 Stop Time: 11:15 DATE: Oct 14, 2022 Total Time Billed (hr/min): 75 Billed Treatment Time 1 visit ADL 2 (30) EX 2 (30) FA 1 (15) (75 total) Deandra Hubbard COTA Oct 14, 2022 11:11
--- NOTE | 2022-10-14 14:45 | Physical Therapy Daily Note ---
PT Daily Note-Current Subjective Pt is sitting in recliner upon arrival. Pt agrees to walk for afternoon tx. Pain Location: No Pain Reported Section J - Health Conditions 1. Rarely or not at all 2. Occasionally 3. Frequently 4. Almost constantly 8. Unable to answer Pain Effect on Sleep: 2 Pain Interference with Therapy: 2 Pain Interference w/Day-to-Day: 2 Mental Status Patient Orientation: Person, Place, Time, Situation Attachments: Other-See Comments (Telemetry) Transfers SCALE: Activities may be completed with or without assistive devices. 6-Bnxgejmcga-vqxaaei completes the activity by him/herself with no assistance from a helper. 5-Set-up or Clean-up Assistance-helper sets up or cleans up; patient completes activity. [place] assists only prior to or following the activity. 4-Supervision or Touching Assistance-helper provides verbal cues and/or touching/steadying and/or contact guard assistance as patient completes activity. Assistance may be provided throughout the activity or intermittently. 3-Partial/Moderate Assistance-helper does LESS THAN HALF the effort. [place] lifts, holds or supports trunk or limbs, but provides less than half the effort. 2-Substantial/Maximal Assistance-helper does MORE THAN HALF the effort. [place] lifts or holds trunk or limbs and provides more than half the effort. 8-Kqemrbcgc-olgfrd does ALL the effort. Patient does none of the effort to complete the activity. Or, the assistance of 2 or more helpers is required for the patient to complete the activity. If activity was not attempted, code reason: 7-Patient Refused. 9-Not Applicable-not attempted and the patient did not perform the activity before the current illness, exacerbation or injury. 10-Not Attempted due to Environmental Limitations-(lack of equipment, weather restraints, etc.). 88-Not Attempted due to Medical Conditions or Safety Concerns. Sit to Stand (QC): 5 Toilet Transfer (QC): 5 Weight Bearing Right Lower Extremity: Right Full Weight Bearing Left Lower Extremity: Left Full Weight Bearing Gait Training Does the Patient Walk?: Yes Distance: 151', 256' Walk 10 feet (QC): 5 Walk 50 ft with 2 Turns(QC): 5 Walk 150 ft (QC): 5 Gait Assistive Device: Walker 4 Wheeled Treatments TF to standing and amb. in hallway before taking RB. After RB, pt amb. in hallway again before resting then using BR, completing pericare independently. Pt returns to EOB & O2 is checked before returning to rest Supine in bed w/HOB raised to aid w/better breathing while laying. All needs met, call light in hand. Assessment Current Status: Good Progress Pt has rudy. increased distance amb. & O2 checked at 96%. PT Group Home Goals Group Home Goals PT Editor At Large Goals Time Frame: Oct 18, 2022 Roll Left & Right (QC): 6 (Pt will be Mod I with functional mobility with the 4WW, in order to be at PLOF and safely return home, alone. ) Sit to Lying (QC): 6 (Pt will be Mod I with functional mobility with the 4WW, in order to be at PLOF and safely return home, alone. ) Lying-Sitting on Side/Bed(QC): 6 (Pt will be Mod I with functional mobility with the 4WW, in order to be at PLOF and safely return home, alone. ) Sit to Stand (QC): 6 (Pt will be Mod I with functional mobility with the 4WW, in order to be at PLOF and safely return home, alone. ) Chair/Lti-ku-Fuizh Xfer(QC): 6 (Pt will be Mod I with functional mobility with the 4WW, in order to be at PLOF and safely return home, alone. ) Toilet Transfer (QC): 6 (Pt will be Mod I with functional mobility with the 4WW, in order to be at PLOF and safely return home, alone. ) Car Transfer (QC): 6 (Pt will be Mod I with functional mobility with the 4WW, in order to be at PLOF and safely return home, alone. ) Does the Patient Walk: Yes Walk 10 feet (QC): 6 (Pt will be Mod I with functional mobility with the 4WW, in order to be at PLOF and safely return home, alone. ) Walk 50ft with 2 Turns (QC): 6 (Pt will be Mod I with functional mobility with the 4WW, in order to be at PLOF and safely return home, alone. ) Walk 150 ft (QC): 6 (Pt will be Mod I with functional mobility with the 4WW, in order to be at PLOF and safely return home, alone. ) Walking 10ft on Uneven Surface: 6 (Pt will be Mod I with functional mobility with the 4WW, in order to be at PLOF and safely return home, alone. ) 1 Step (curb) (QC): 6 (Pt will be Mod I with functional mobility with the 4WW, in order to be at PLOF and safely return home, alone. ) 4 Steps (QC): 6 (Pt will be Mod I with functional mobility with the 4WW, in order to be at PLOF and safely return home, alone. ) 12 Steps (QC): 9 (Pt has 3 steps to enter/exit home ) Picking up an Object (QC): 6 (Pt will be Mod I with functional mobility with the 4WW, in order to be at PLOF and safely return home, alone. ) Does the Pt use WC or Scooter?: No Wheel 50 feet with 2 turns (QC: 9 Type: N/A Wheel 150 feet: 9 Type: N/A PT Plan Problem List Problem List: Activity Tolerance Treatment/Plan Treatment Plan: Continue Plan of Care Treatment Plan: Bed Mobility, Concurrent Therapy, Education, Functional Activity [place], Functional Strength, Group Therapy, Gait, Safety, Therapeutic Exercise, Transfers Treatment Duration: Oct 18, 2022 Frequency: At least 5 of 7 days/Wk (IRF) Estimated Hrs Per Day: 1.5 hours per day Patient and/or Family Agrees t: Yes Time Time In: 1330 Time Out: 1400 DATE: Oct 14, 2022 Total Billed Treatment Time: 30 Total Billed Treatment 1, GT x2 (30m) KLEVER ROY THREAD TRIMMER Oct 14, 2022 14:45
[2022-10-14] MEDS: warFARin 2.5 MG (COUMADIN) TAB PO SCH (17:13)
[2022-10-14] MEDS: warFARin 4 MG (COUMADIN) TAB PO SCH (17:13)
[2022-10-14 20:00] VITALS: BP 104/52
[2022-10-15] MEDS: inSUlin ASPART (NovoLOG) 1 UNIT/0.01 ML (CHARGE PER UNIT) SC SCH ×4 (05:52→20:23)
[2022-10-15] MEDS: BUMETANIDE 1 MG TABLET PO SCH ×2 (06:39→17:00)
[2022-10-15] MEDS: FLUTICASONE/VILANTEROL 100 MCG 14'S (BREO) IH SCH ×2 (07:10→09:08)
[2022-10-15 07:30] VITALS: BP 109/57
[2022-10-15] MEDS: AMIODARONE 200 MG TABLET PO SCH (09:07)
[2022-10-15] MEDS: DOCUSATE SODIUM 100 MG CAPSULE PO SCH ×2 (09:07→20:23)
[2022-10-15] MEDS: KCL 10 MEQ TAB (MICRO K) PO SCH ×2 (09:07→20:19)
[2022-10-15] MEDS: PANTOPRAZOLE 20 MG TABLET (PROTONIX) PO SCH (09:07)
[2022-10-15] MEDS: SENNA W/DOCUSATE (SENOKOT S) TABLET PO SCH ×2 (09:07→20:23)
[2022-10-15] MEDS: ASPIRIN enteric coated 81MG TABLET PO SCH (09:07)
[2022-10-15] MEDS: dilTIAZem120 MG (CARDIZEM CD) CAP PO SCH (09:07)
[2022-10-15] MEDS: MAGIC MOUTHWASH (ADULT) PO SCH ×16 (09:09→20:24)
[2022-10-15] MEDS: INVOKAMET PO SCH (09:09)
[2022-10-15] MEDS: VIIBRYD 40 MG PO SCH (09:09)
[2022-10-15] MEDS: MAGIC MOUTHWASH, ADULT 155 ML BOTTLE PO SCH ×4 (09:15→19:22)
[2022-10-15] MEDS: polyethylene glycoL POWDER 17 GM (MIRALAX) PACK PO SCH ×2 (09:15→19:22)
--- NOTE | 2022-10-15 09:30 | Occupational Ther Daily Note ---
OT Current Status-Daily Note Subjective Pt alert, sitting in recliner. Co-treat with PT([id number]) for family training, skills of 2 clinicians required for education and safety with family member to assure a continuum of care and understanding on pt's progress at ARU and continuing to home. PT focusing on ambulation, mobility and transfers while OT focusing on ADL education, functional mobility and daily activity education. Mental Status/Objective Patient Orientation: Person, Place, Time, Situation Attachments: Telemetry ADL-Treatment Therapy Code Descriptions/Definitions Functional [place] Measure: 0=Not Assessed/NA 4=Minimal Assistance 1=Total Assistance 5=Supervision or Setup 2=Maximal Assistance 6=Modified [place] 3=Moderate Assistance 7=Complete IndependenceSCALE: Activities may be completed with or without assistive devices. 3-Wwcdllitct-iddfvmo completes the activity by him/herself with no assistance from a helper. 5-Set-up or Clean-up Assistance-helper sets up or cleans up; patient completes activity. [place] assists only prior to or following the activity. 4-Supervision or Touching Assistance-helper provides verbal cues and/or touching/steadying and/or contact guard assistance as patient completes activity. Assistance may be provided throughout the activity or intermittently. 3-Partial/Moderate Assistance-helper does LESS THAN HALF the effort. [place] lifts, holds or supports trunk or limbs, but provides less than half the effort. 2-Substantial/Maximal Assistance-helper does MORE THAN HALF the effort. [place] lifts or holds trunk or limbs and provides more than half the effort. 2-Ohpfogjpr-kdfsuf does ALL the effort. Patient does none of the effort to complete the activity. Or, the assistance of 2 or more helpers is required for the patient to complete the activity. If activity was not attempted, code reason: 7-Patient Refused. 9-Not Applicable-not attempted and the patient did not perform the activity be fore the current illness, exacerbation or injury. 10-Not Attempted due to Environmental Limitations-(lack of equipment, weather restraints, etc.). 88-Not Attempted due to Medical Conditions or Safety Concerns. Other Treatment Pt is very independent and has tendencies to complete tasks her own way. Education for pt for safety though pt continues to only do things her way. Pt ambulates long distance using 4WW, will leave it behind when ambulating around room. Pt demonstrated independence with safety concerns when stepping in/out of tub using small rail. Pt then completed functional mobility independent with s afety concerns. Pt has B UE strengthening HEP though will only complete a few times then stops. Discussed and used wedge to lay down on then using bedcane to complete bed mobility. Daughter called and looking for items to use. After session, pt sitting in recliner with call light/phone in reach. All needs met in room. OT Short Term Goals Short Term Goals Time Frame: Oct 17, 2022 Toileting hygiene: 5 Shower/bathe self: 5 Upper body dressin Lower body dressin OT Penitentiary Goals Penitentiary Goals Acute change in mental status: 0 Inattention: 0 Disorganized thinkin Altered level of consciousness: 0 Oral Hygiene (QC): 6 Toileting Hygiene (QC): 6 Shower/Bathe Self (QC): 6 Upper Body Dressing (QC): 6 Lower Body Dressing (QC): 6 On/Off Footwear (QC): 6 1=Demonstrate adherence to instructed precautions during ADL tasks. 2=Patient will verbalize/demonstrate understanding of assistive devices/modifications for ADL. 3=Patient will improve strength/tolerance for activity to enable patient to perform ADL's. OT Education/Plan Problem List/Assessment Assessment: Decreased Activ Tolerance, Decreased UE Strength, Impaired Funct Balance Discharge Recommendations Plan/Recommendations: Continue POC Treatment Plan/Plan of Care Patient would benefit from OT for education, treatment and training to promote independence in ADL's, mobility, safety and/or upper extremity function for ADL's. Plan of Care: ADL Retraining, Concurrent Therapy, Functional Mobility, Group Exercise/Act as Ind, UE Funct Exercise/Act Treatment Duration: Oct 20, 2022 Frequency: At least 5 of 7 days/Wk (IRF) Estimated Hrs Per Day: 1.5 hours per day Agreement: Yes Rehab Potential: Good Time Start Time: 08:00 Stop Time: 09:30 DATE: Oct 15, 2022 Total Time Billed (hr/min): 90 Billed Treatment Time 1 visit-FA 6 (90 min) co-treat with PT 90 min RUSSEL BROWN Oct 15, 2022 09:30
--- NOTE | 2022-10-15 09:56 | Cardiology Progress Note ---
Subjective Date Seen by Provider: Oct 15, 2022 Time Seen by Provider: 08:15 Subjective/Events-last exam Patient is with PT, no new complaints. Denies any chest pain Objective-Cardiology Exam Last Set of Vital Signs Vital Signs 10/12/22 10/15/22 10/15/22 10/15/22 08:28 07:30 09:44 12:56 Temp 35.8 Pulse 97 Resp 18 B/P (MAP) 109/57 (74) Pulse Ox 98 O2 Delivery Room Air O2 Flow Rate 2.00 I&O Intake and Output 10/15/22 00:00 Intake Total 1200 ml Balance 1200 ml Intake Oral 1200 ml # Voids 6 # Bowel Movements 1 General: Alert, Oriented X3, Cooperative HEENT: Atraumatic, PERRLA Lungs: Clear to Auscultation, Normal Air Movement Heart: Normal S1, Normal S2 Abdomen: Normal Bowel Sounds, Soft Skin: No Rashes, No Significant Lesion Neuro: Normal Speech Psych/Mental Status: Mental Status NL, Mood NL A/P-Cardiology Admission Diagnosis Mitral stenosis, s/p Mitral valve replacement afib HTN DM Assessment/Plan Paroxysmal atrial fibrillation, Converted to sinus rhythm. Maintained on Cardizem CD 120 mg daily, Amiodarone 200 mg daily. Continue warfarin. Patient does not want to travel to [place] or [place]. INR 3.0. Will have her f/u in our office Mitral valve stenosis, history of MVR with mechanical valve with Dr. Perry at approx 2 weeks ago. Incision and CT sites C/D/I without erythema or drainage. HTN, controlled, continue to monitor blood pressure HLP, continue to monitor as outpatient DM, management per primary team Generalized debility/weakness, continue PT/OT Supervisory-Addendum Brief Supervisory Addendum Participated in pt care: history, MDM, physical Personally performed: exam, history, MDM Care discussed with: MARY Results interpretation: Verified all documentation Notes: Patient was seen and evaluated with Rebecca, examination performed, management plan was discussed, agree with the current scribed note, I made few changes to the note using Italic font Patient was seen at bedside, laying down comfortably Feeling well. No new complaint We discussed the management plan, educated on keeping INR 2-3 We will arrange for follow-up as an outpatient REBECCA CARRANZA Oct 15, 2022 09:56 ASIA RICE MD Oct 15, 2022 15:35
--- NOTE | 2022-10-15 11:29 | Physical Therapy Daily Note ---
PT Daily Note-Current Subjective PT on toilet upon arrival in the room. pt good for therapy. pt states pain is a 4/10 in chest area. Pt.OT co treat [id number] with daughter for skill of 2 clinicians requires to address and concerns pt or daughter has about returning home safely. Daughter was shown pt current level of function and and safety to challenged they may face upon returning home. OT addressing daily ADL's and pt focusing transfers and ambulation. No concern for moving forward with going home after family training with either the daughter or the pt. pt was left with daughter in common area with pt tech walking with her back to her room when ready. Pain Section J - Health Conditions 1. Rarely or not at all 2. Occasionally 3. Frequently 4. Almost constantly 8. Unable to answer Pain Effect on Sleep: 2 Pain Interference with Therapy: 2 Pain Interference w/Day-to-Day: 2 Mental Status Patient Orientation: Person, Place, Time, Situation Transfers SCALE: Activities may be completed with or without assistive devices. 6-Apexzfqwmw-qfzrlte completes the activity by him/herself with no assistance from a helper. 5-Set-up or Clean-up Assistance-helper sets up or cleans up; patient completes activity. [place] assists only prior to or following the activity. 4-Supervision or Touching Assistance-helper provides verbal cues and/or touching/steadying and/or contact guard assistance as patient completes activity. Assistance may be provided throughout the activity or intermittently. 3-Partial/Moderate Assistance-helper does LESS THAN HALF the effort. [place] lifts, holds or supports trunk or limbs, but provides less than half the effort. 2-Substantial/Maximal Assistance-helper does MORE THAN HALF the effort. [place] lifts or holds trunk or limbs and provides more than half the effort. 0-Tkhwcavzr-zpgjcx does ALL the effort. Patient does none of the effort to complete the activity. Or, the assistance of 2 or more helpers is required for the patient to complete the activity. If activity was not attempted, code reason: 7-Patient Refused. 9-Not Applicable-not attempted and the patient did not perform the activity before the current illness, exacerbation or injury. 10-Not Attempted due to Environmental Limitations-(lack of equipment, weather restraints, etc.). 88-Not Attempted due to Medical Conditions or Safety Concerns. Roll Left & Right (QC): 6 Sit to Lying (QC): 6 Lying to Sitting/Side of Bed(Q: 6 Sit to Stand (QC): 6 Chair/Wji-ce-Sgwrd Xfer(QC): 6 Toilet Transfer (QC): 6 Car Transfer (QC): 6 Weight Bearing Right Lower Extremity: Right Full Weight Bearing Left Lower Extremity: Left Full Weight Bearing Gait Training Walk 10 feet (QC): 6 Walk 50 ft with 2 Turns(QC): 6 Walk 150 ft (QC): 6 Gait Assistive Device: Walker 4 Wheeled Wheelchair Training Wheel 50 ft with 2 turns (QC): 9 Wheel 150 ft (QC): 9 Stair Training 1 Step (curb) (QC): 6 4 Steps (QC): 6 12 Steps (QC): 9 Treatments Pt was able to ambulate 319 ft with 4WW and one standing rest break for aprox 45 sec. pt is able preform nu-step for 10 mins at level 1 with no rest breaks showing increased stamina and endurance. pt is able to preform 8 stairs and a car transfers independently as well as a tub transfers with tub chair. pt is able to preform bed mobility with bed Shook and a wedge. Assessment Current Status: Good Progress PT Penitentiary Goals [employer] Goals PT Penitentiary Goals Time Frame: Oct 18, 2022 Roll Left & Right (QC): 6 (Pt will be Mod I with functional mobility with the 4WW, in order to be at PLOF and safely return home, alone. ) Sit to Lying (QC): 6 (Pt will be Mod I with functional mobility with the 4WW, in order to be at PLOF and safely return home, alone. ) Lying-Sitting on Side/Bed(QC): 6 (Pt will be Mod I with functional mobility with the 4WW, in order to be at PLOF and safely return home, alone. ) Sit to Stand (QC): 6 (Pt will be Mod I with functional mobility with the 4WW, in order to be at PLOF and safely return home, alone. ) Chair/Qpb-ic-Rmkgb Xfer(QC): 6 (Pt will be Mod I with functional mobility with the 4WW, in order to be at PLOF and safely return home, alone. ) Toilet Transfer (QC): 6 (Pt will be Mod I with functional mobility with the 4WW, in order to be at PLOF and safely return home, alone. ) Car Transfer (QC): 6 (Pt will be Mod I with functional mobility with the 4WW, in order to be at PLOF and safely return home, alone. ) Does the Patient Walk: Yes Walk 10 feet (QC): 6 (Pt will be Mod I with functional mobility with the 4WW, in order to be at PLOF and safely return home, alone. ) Walk 50ft with 2 Turns (QC): 6 (Pt will be Mod I with functional mobility with the 4WW, in order to be at PLOF and safely return home, alone. ) Walk 150 ft (QC): 6 (Pt will be Mod I with functional mobility with the 4WW, in order to be at PLOF and safely return home, alone. ) Walking 10ft on Uneven Surface: 6 (Pt will be Mod I with functional mobility with the 4WW, in order to be at PLOF and safely return home, alone. ) 1 Step (curb) (QC): 6 (Pt will be Mod I with functional mobility with the 4WW, in order to be at PLOF and safely return home, alone. ) 4 Steps (QC): 6 (Pt will be Mod I with functional mobility with the 4WW, in order to be at PLOF and safely return home, alone. ) 12 Steps (QC): 9 (Pt has 3 steps to enter/exit home ) Picking up an Object (QC): 6 (Pt will be Mod I with functional mobility with the 4WW, in order to be at PLOF and safely return home, alone. ) Does the Pt use WC or Scooter?: No Wheel 50 feet with 2 turns (QC: 9 Type: N/A Wheel 150 feet: 9 Type: N/A PT Plan Treatment/Plan Treatment Plan: Continue Plan of Care Treatment Plan: Bed Mobility, Concurrent Therapy, Education, Functional Activity [place], Functional Strength, Group Therapy, Gait, Safety, Therapeutic Exercise, Transfers Treatment Duration: Oct 18, 2022 Frequency: At least 5 of 7 days/Wk (IRF) Estimated Hrs Per Day: 1.5 hours per day Patient and/or Family Agrees t: Yes Time Time In: 0800 Time Out: 929 DATE: Oct 15, 2022 Total Billed Treatment Time: 90 Total Billed Treatment 1 FA x 4 EX GT Co treat with OT for 90 mins Nakia Pryor COMPUTING SERVICES DIRECTOR Oct 15, 2022 11:29
--- NOTE | 2022-10-15 12:34 | PM&R Progress Note ---
Subjective HPI/CC On Admission Date Seen by Provider: Oct 15, 2022 Time Seen by Provider: 14:00 Subjective/Events-last exam 10/15/2022: Patient doing much better Discharge plan for Thursday We will send all meds in early Home O2 evaluation will be initiated 10/14/2022: Doing well Increased ambulation No falls Labs stable 10/13/2022: Doing well Monitor closely Lungs are clear No pain Reviewed meds 10/12/2022: Doing well Anxious about "further complications" and I tired to reassure Patient has significant mental illness giving rise to anxiety and despondency and tearfulness Review of Systems General: Fatigue, Malaise Objective Exam Vital Signs Vital Signs Date Time Temp Pulse Resp B/P (MAP) Pulse Ox O2 Delivery O2 Flow Rate FiO2 10/16/22 00:53 84 10/15/22 20:31 Nasal Cannula 2.00 10/15/22 20:15 36.0 18 113/58 (76) 97 Capillary Refill : General Appearance: No Apparent Distress, WD/WN, Chronically ill, Obese HEENT: PERRL/EOMI, Normal ENT Inspection, Pharynx Normal Neck: Full Range of Motion, Normal Inspection, Non Tender, Supple, Carotid Bruit Respiratory: Chest Non Tender, Lungs Clear, Normal Breath Sounds, No Accessory Muscle Use, No Respiratory Distress Cardiovascular: Regular Rate, Rhythm, No Edema, No Gallop, No JVD, No Murmur, Normal Peripheral Pulses Gastrointestinal: Normal Bowel Sounds, No Organomegaly, No Pulsatile Mass, Non Tender, Soft Back: Normal Inspection, No CVA Tenderness, No Vertebral Tenderness Extremity: Normal Capillary Refill, Normal Inspection, Normal Range of Motion, Non Tender, No Calf Tenderness, No Pedal Edema Neurologic/Psychiatric: Alert, Oriented x3, director surface transportation II-XII Norm as Tested, Abnormal Gait, Depressed Affect, Motor Weakness (generalized) Skin: Normal Color, Warm/Dry Lymphatic: No Adenopathy Results/Procedures Lab Patient resulted labs reviewed. FIM Transfers Therapy Code Descriptions/Definitions Functional [place] Measure: 0=Not Assessed/NA 4=Minimal Assistance 1=Total Assistance 5=Supervision or Setup 2=Maximal Assistance 6=Modified [place] 3=Moderate Assistance 7=Complete IndependenceSCALE: Activities may be completed with or without assistive devices. 4-Fedebrsflr-jixeytm completes the activity by him/herself with no assistance from a helper. 5-Set-up or Clean-up Assistance-helper sets up or cleans up; patient completes activity. [place] assists only prior to or following the activity. 4-Supervision or Touching Assistance-helper provides verbal cues and/or touching/steadying and/or contact guard assistance as patient completes activity. Assistance may be provided throughout the activity or intermittently. 3-Partial/Moderate Assistance-helper does LESS THAN HALF the effort. [place] lifts, holds or supports trunk or limbs, but provides less than half the effort. 2-Substantial/Maximal Assistance-helper does MORE THAN HALF the effort. [place] lifts or holds trunk or limbs and provides more than half the effort. 9-Pzgkqsxzk-izggjv does ALL the effort. Patient does none of the effort to complete the activity. Or, the assistance of 2 or more helpers is required for the patient to complete the activity. If activity was not attempted, code reason: 7-Patient Refused. 9-Not Applicable-not attempted and the patient did not perform the activity before the current illness, exacerbation or injury. 10-Not Attempted due to Environmental Limitations-(lack of equipment, weather restraints, etc.). 88-Not Attempted due to Medical Conditions or Safety Concerns. Roll Left to Right (QC): 6 Sit to Lying (QC): 6 Sit to Stand (QC): 6 Chair/Jem-tx-Keryr Xfer(QC): 6 Car Transfer (QC): 6 Gait Training Does the Patient Walk?: Yes Distance: 151', 256' Walk 10 feet (QC): 6 Walk 50 ft with 2 Turns(QC): 6 Walk 150 ft (QC): 6 Walking 10ft/uneven surface-QC: 4 (CGA ) Gait Assistive Device: Walker 4 Wheeled Wheelchair Training Does the Pt Use a Wheelchair?: No Wheel 50 ft with 2 turns (QC): 9 Wheel 150 ft (QC): 9 Type of Wheelchair: N/A Stair Training #of Steps: 8 1 Step (curb) (QC): 6 4 Steps (QC): 6 12 Steps (QC): 9 Balance Picking up an Object (QC): 4 (CGA ) ADL-Treatment Eating (QC): 6 Oral Hygiene (QC): 5 Shower/Bathe Self (QC): 7 (declined at this time) Upper Body Dressing (QC): 4 Lower Body Dressing (QC): 4 On/Off Footwear (QC): 4 (use of long handle shoe horn) Toileting Hygiene (QC): 4 Assessment/Plan Assessment and Plan Assess & Plan/Chief Complaint CHF myopathy Atrial fibrillation with RVR S/P MVR Chronic HFpEF HTN HLD T2DM COPD JF Depression Plan: Meds transferred from ICU Monitor INR Monitor HR Appreciate Dr Desai 10/12/2022: Supportive care Monitor closely 10/13/2022: Monitor INR Supportive care 10/14/2022: Monitor closely 10/15/2022: Discharge home Thursday (1) Myopathy DARI GUAJARDO DO Oct 15, 2022 12:34
[2022-10-15] MEDS: warFARin 2.5 MG (COUMADIN) TAB PO SCH (17:01)
[2022-10-15] MEDS: warFARin 4 MG (COUMADIN) TAB PO SCH (17:01)
[2022-10-15 20:15] VITALS: BP 113/58
[2022-10-16] MEDS ORDERED: AMIO200T65 PO (05:34)
[2022-10-16] MEDS ORDERED: POTA-185 PO (05:34)
[2022-10-16] MEDS ORDERED: ASPI-1238 PO (05:34)
[2022-10-16] MEDS ORDERED: OXYC1TAB87 PO (05:34)
[2022-10-16] MEDS ORDERED: WARF4TAB3 PO (05:34)
[2022-10-16] MEDS ORDERED: BUME2TAB7 PO (05:34)
[2022-10-16] MEDS ORDERED: WRF2.5T PO (05:34)
[2022-10-16] MEDS ORDERED: TRM50T PO (05:34)
[2022-10-16] MEDS ORDERED: DILT-27 PO (05:34)
[2022-10-16] MEDS ORDERED: ATOR20TA66 PO (05:34)
--- NOTE | 2022-10-16 05:36 | D/C HH Face to Face Order ---
D/C Face to Face Orders Reconcile Patient Problems Problems Reviewed?: Yes Instructions for Patient HH Patient Instructions/FollowUp: PCP 1 week Physician to follow Patient: PCP Discharge Diet for Home: ADA Diet Patient Problems: Open heart surgery Patient Data-Allergies,Ht & Wt Patient Allergies: Coded Allergies: No Allergy Information Available (Unverified , 05/23/21) Home Health Need/Face to Face Date of Face to Face: Oct 16, 2022 Clinical Findings: Generalized weakness and fatigue, Instability, Muscle weakness I have seen Pt cpbc-jz-bhtu: Yes Discharged To: Home Diagnosis/Conditions: Debility Patient is Homebound due to: [place] fall risk due to instabilty, Muscle weakness Homebound Status Due to the above stated illness, injury or surgical procedure (medical condition or diagnosis) and associated clinical findings, the patient is homebound because of his/her inability to leave home except with aid of a supportive device and/or person AND leaving the home requires a considerable and taxing effort or is medically contraindicated. Pt req the following assistanc: Walker Home Health Nursing Orders Home Health Services Order: Nursing Services, [employer]-Evaluate & Treat, Physical Therapy-Evaluate & Treat Certify Stmt I certify that this patient is under my care and that I, a nurse practitioner or a physician; a assistant operator working with me, had a face to face encounter that - meets the physician face to face encounter requirements with this patient as dated. DARI GUAJARDO DO Oct 16, 2022 05:36
[2022-10-16 06:29] LABS: INR 3.3 (0.8-1.4); PROTHROMBIN TIME PATIENT 32.8 SEC (12.2-14.7)
[2022-10-16] MEDS: inSUlin ASPART (NovoLOG) 1 UNIT/0.01 ML (CHARGE PER UNIT) SC SCH ×4 (06:30→21:08)
[2022-10-16] MEDS: BUMETANIDE 1 MG TABLET PO SCH ×2 (06:30→17:07)
[2022-10-16] MEDS: FLUTICASONE/VILANTEROL 100 MCG 14'S (BREO) IH SCH (07:06)
[2022-10-16 07:41] VITALS: BP 118/62
[2022-10-16] MEDS: DOCUSATE SODIUM 100 MG CAPSULE PO SCH ×2 (08:08→20:51)
[2022-10-16] MEDS: SENNA W/DOCUSATE (SENOKOT S) TABLET PO SCH ×2 (08:08→20:52)
[2022-10-16] MEDS: dilTIAZem120 MG (CARDIZEM CD) CAP PO SCH (08:08)
[2022-10-16] MEDS: KCL 10 MEQ TAB (MICRO K) PO SCH ×2 (08:08→20:51)
[2022-10-16] MEDS: AMIODARONE 200 MG TABLET PO SCH (08:08)
[2022-10-16] MEDS: PANTOPRAZOLE 20 MG TABLET (PROTONIX) PO SCH (08:08)
[2022-10-16] MEDS: ASPIRIN enteric coated 81MG TABLET PO SCH (08:08)
[2022-10-16] MEDS: VIIBRYD 40 MG PO SCH (08:09)
[2022-10-16] MEDS: INVOKAMET PO SCH (08:09)
[2022-10-16] MEDS: MAGIC MOUTHWASH (ADULT) PO SCH ×16 (08:09→21:08)
[2022-10-16] MEDS: polyethylene glycoL POWDER 17 GM (MIRALAX) PACK PO SCH ×2 (08:12→20:52)
[2022-10-16] MEDS: MAGIC MOUTHWASH, ADULT 155 ML BOTTLE PO SCH ×4 (08:12→21:08)
--- NOTE | 2022-10-16 09:04 | Cardiology Progress Note ---
Subjective Date Seen by Provider: Oct 16, 2022 Time Seen by Provider: 08:10 Subjective/Events-last exam Patient is with PT, no new complaints. Denies any chest pain or dyspnea. Objective-Cardiology Exam Last Set of Vital Signs Vital Signs 10/15/22 10/16/22 10/16/22 20:31 07:41 09:36 Temp 36.0 Pulse 99 Resp 20 B/P (MAP) 118/62 (80) Pulse Ox 93 O2 Delivery Room Air O2 Flow Rate 2.00 I&O Intake and Output 10/16/22 00:00 Intake Total 2614 ml Balance 2614 ml Intake Oral 2614 ml # Voids 6 # Bowel Movements 1 General: Alert, Oriented X3, Cooperative HEENT: Atraumatic, PERRLA Lungs: Clear to Auscultation, Normal Air Movement Heart: Normal S1, Normal S2 Abdomen: Normal Bowel Sounds, Soft Skin: No Rashes, No Significant Lesion Neuro: Normal Speech Psych/Mental Status: Mental Status NL, Mood NL A/P-Cardiology Admission Diagnosis Mitral stenosis, s/p Mitral valve replacement afib HTN DM Assessment/Plan Paroxysmal atrial fibrillation, Converted to sinus rhythm. Maintained on Cardizem CD 120 mg daily, Amiodarone 200 mg daily. Continue warfarin. Patient does not want to travel to [place] or [place]. INR 3.0. Will have her f/u in our office Mitral valve stenosis, history of MVR with mechanical valve with Dr. Perry at approx 2 weeks ago. Incision and CT sites C/D/I without erythema or drainage. HTN, controlled, continue to monitor blood pressure HLP, continue to monitor as outpatient DM, management per primary team Generalized debility/weakness, continue PT/OT Ok for discharge from cardiology standpoint. Follow up in our office in 4 weeks. Supervisory-Addendum Brief Supervisory Addendum Participated in pt care: history, MDM, physical Personally performed: exam, history, MDM Care discussed with: MARY Results interpretation: Verified all documentation Notes: Patient was seen and evaluated with Rebecca, examination performed, management plan was discussed, agree with the current scribed note, I made few changes to the note using Italic font Patient was seen and evaluated with Rebecca, receiving physical therapy Feeling better. No new complaint INR 3.3 Continue on current medication and monitor REBECCA CARRANZA Oct 16, 2022 09:04 ASIA RICE MD Oct 16, 2022 15:42
--- NOTE | 2022-10-16 09:40 | Physical Therapy Daily Note ---
PT Daily Note-Current Subjective PT in recliner upon arrival and willing for therapy. pt reports 6/10 pain and nursing was notified and pain med was given to combat pain. Pt was left in room sitting in recliner after therapy with call light and all needs met. Pain Section J - Health Conditions 1. Rarely or not at all 2. Occasionally 3. Frequently 4. Almost constantly 8. Unable to answer Pain Effect on Sleep: 2 Pain Interference with Therapy: 2 Pain Interference w/Day-to-Day: 2 Transfers SCALE: Activities may be completed with or without assistive devices. 0-Guyiqtcoym-onfnolr completes the activity by him/herself with no assistance from a helper. 5-Set-up or Clean-up Assistance-helper sets up or cleans up; patient completes activity. [place] assists only prior to or following the activity. 4-Supervision or Touching Assistance-helper provides verbal cues and/or touching/steadying and/or contact guard assistance as patient completes activity. Assistance may be provided throughout the activity or intermittently. 3-Partial/Moderate Assistance-helper does LESS THAN HALF the effort. [place] lifts, holds or supports trunk or limbs, but provides less than half the effort. 2-Substantial/Maximal Assistance-helper does MORE THAN HALF the effort. [place] lifts or holds trunk or limbs and provides more than half the effort. 4-Pmebfimtd-agtqms does ALL the effort. Patient does none of the effort to complete the activity. Or, the assistance of 2 or more helpers is required for the patient to complete the activity. If activity was not attempted, code reason: 7-Patient Refused. 9-Not Applicable-not attempted and the patient did not perform the activity before the current illness, exacerbation or injury. 10-Not Attempted due to Environmental Limitations-(lack of equipment, weather restraints, etc.). 88-Not Attempted due to Medical Conditions or Safety Concerns. Roll Left & Right (QC): 6 Sit to Lying (QC): 6 Lying to Sitting/Side of Bed(Q: 6 Sit to Stand (QC): 6 Chair/Lsl-by-Ioxsl Xfer(QC): 6 Toilet Transfer (QC): 6 Car Transfer (QC): 6 Weight Bearing Right Lower Extremity: Right Full Weight Bearing Left Lower Extremity: Left Full Weight Bearing Gait Training Walk 10 feet (QC): 6 Walk 50 ft with 2 Turns(QC): 6 Walk 150 ft (QC): 6 Walking 10ft/uneven surface-QC: 6 Gait Assistive Device: Walker 4 Wheeled Wheelchair Training Wheel 50 ft with 2 turns (QC): 9 Wheel 150 ft (QC): 9 Stair Training #of Steps: 8 1 Step (curb) (QC): 6 4 Steps (QC): 6 12 Steps (QC): 9 Balance Picking up an Object (QC): 6 Exercises NuStep Minutes: 6 NuStep Workload: 1 Treatments PT was able to preform all Qc's independently. Bed mobility, uneven surfaces, ambulation, car and toilet transfer etc with 4ww. PT does require rest in between each activity. secondary to fatigue and low endurance. With rest pt is able to resume activity. Pt can ambulate 397 ft with 4WW and one standing rest break. Assessment Current Status: Good Progress PT Proof Inspector Goals [facility] Goals PT Proof Inspector Goals Time Frame: Oct 18, 2022 Roll Left & Right (QC): 6 (Pt will be Mod I with functional mobility with the 4 WW, in order to be at PLOF and safely return home, alone. ) Sit to Lying (QC): 6 (Pt will be Mod I with functional mobility with the 4WW, in order to be at PLOF and safely return home, alone. ) Lying-Sitting on Side/Bed(QC): 6 (Pt will be Mod I with functional mobility with the 4WW, in order to be at PLOF and safely return home, alone. ) Sit to Stand (QC): 6 (Pt will be Mod I with functional mobility with the 4WW, in order to be at PLOF and safely return home, alone. ) Chair/Kvn-ow-Drbdf Xfer(QC): 6 (Pt will be Mod I with functional mobility with the 4WW, in order to be at PLOF and safely return home, alone. ) Toilet Transfer (QC): 6 (Pt will be Mod I with functional mobility with the 4WW, in order to be at PLOF and safely return home, alone. ) Car Transfer (QC): 6 (Pt will be Mod I with functional mobility with the 4WW, in order to be at PLOF and safely return home, alone. ) Does the Patient Walk: Yes Walk 10 feet (QC): 6 (Pt will be Mod I with functional mobility with the 4WW, in order to be at PLOF and safely return home, alone. ) Walk 50ft with 2 Turns (QC): 6 (Pt will be Mod I with functional mobility with the 4WW, in order to be at PLOF and safely return home, alone. ) Walk 150 ft (QC): 6 (Pt will be Mod I with functional mobility with the 4WW, in order to be at PLOF and safely return home, alone. ) Walking 10ft on Uneven Surface: 6 (Pt will be Mod I with functional mobility with the 4WW, in order to be at PLOF and safely return home, alone. ) 1 Step (curb) (QC): 6 (Pt will be Mod I with functional mobility with the 4WW, in order to be at PLOF and safely return home, alone. ) 4 Steps (QC): 6 (Pt will be Mod I with functional mobility with the 4WW, in order to be at PLOF and safely return home, alone. ) 12 Steps (QC): 9 (Pt has 3 steps to enter/exit home ) Picking up an Object (QC): 6 (Pt will be Mod I with functional mobility with the 4WW, in order to be at PLOF and safely return home, alone. ) Does the Pt use WC or Scooter?: No Wheel 50 feet with 2 turns (QC: 9 Type: N/A Wheel 150 feet: 9 Type: N/A PT Plan Treatment/Plan Treatment Plan: Continue Plan of Care Treatment Plan: Bed Mobility, Concurrent Therapy, Education, Functional Activi ty [place], Functional Strength, Group Therapy, Gait, Safety, Therapeutic Exercise, Transfers Treatment Duration: Oct 18, 2022 Frequency: At least 5 of 7 days/Wk (IRF) Estimated Hrs Per Day: 1.5 hours per day Patient and/or Family Agrees t: Yes Time Time In: 0800 Time Out: 929 DATE: Oct 16, 2022 Total Billed Treatment Time: 90 Total Billed Treatment 1 FA x 4 GT x 2 Nakia Pryor PROJECT FINANCE ANALYST Oct 16, 2022 09:40
--- NOTE | 2022-10-16 10:32 | PM&R Progress Note ---
Subjective HPI/CC On Admission Date Seen by Provider: Oct 16, 2022 Time Seen by Provider: 10:30 Subjective/Events-last exam 10/16/2022: DC planned for tomorrow Hold Coumadin today and restart Thursday night INR ordered daily per Dr De La Cruz 10/15/2022: Patient doing much better Discharge plan for Thursday We will send all meds in early Home O2 evaluation will be initiated 10/14/2022: Doing well Increased ambulation No falls Labs stable 10/13/2022: Doing well Monitor closely Lungs are clear No pain Reviewed meds 10/12/2022: Doing well Anxious about "further complications" and I tired to reassure Patient has significant mental illness giving rise to anxiety and despondency and tearfulness Review of Systems General: Fatigue, Malaise Objective Exam Vital Signs Vital Signs Date Time Temp Pulse Resp B/P (MAP) Pulse Ox O2 Delivery O2 Flow Rate FiO2 10/16/22 21:47 93 Room Air 10/16/22 20:39 36.3 96 20 92/51 (65) 10/15/22 20:31 2.00 Capillary Refill : General Appearance: No Apparent Distress, WD/WN, Chronically ill, Obese HEENT: PERRL/EOMI, Normal ENT Inspection, Pharynx Normal Neck: Full Range of Motion, Normal Inspection, Non Tender, Supple, Carotid Bruit Respiratory: Chest Non Tender, Lungs Clear, Normal Breath Sounds, No Accessory Muscle Use, No Respiratory Distress Cardiovascular: Regular Rate, Rhythm, No Edema, No Gallop, No JVD, No Murmur, Normal Peripheral Pulses Gastrointestinal: Normal Bowel Sounds, No Organomegaly, No Pulsatile Mass, Non Tender, Soft Back: Normal Inspection, No CVA Tenderness, No Vertebral Tenderness Extremity: Normal Capillary Refill, Normal Inspection, Normal Range of Motion, Non Tender, No Calf Tenderness, No Pedal Edema Neurologic/Psychiatric: Alert, Oriented x3, camp counselor II-XII Norm as Tested, Abnormal Gait, Depressed Affect, Motor Weakness (generalized) Skin: Normal Color, Warm/Dry Lymphatic: No Adenopathy Results/Procedures Lab Patient resulted labs reviewed. FIM Transfers Therapy Code Descriptions/Definitions Functional [place] Measure: 0=Not Assessed/NA 4=Minimal Assistance 1=Total Assistance 5=Supervision or Setup 2=Maximal Assistance 6=Modified [place] 3=Moderate Assistance 7=Complete IndependenceSCALE: Activities may be completed with or without assistive devices. 8-Mtqvglyulb-mjprssj completes the activity by him/herself with no assistance from a helper. 5-Set-up or Clean-up Assistance-helper sets up or cleans up; patient completes activity. [place] assists only prior to or following the activity. 4-Supervision or Touching Assistance-helper provides verbal cues and/or touching/steadying and/or contact guard assistance as patient completes activity. Assistance may be provided throughout the activity or intermittently. 3-Partial/Moderate Assistance-helper does LESS THAN HALF the effort. [place] lifts, holds or supports trunk or limbs, but provides less than half the effort. 2-Substantial/Maximal Assistance-helper does MORE THAN HALF the effort. [place] lifts or holds trunk or limbs and provides more than half the effort. 2-Jjmrnsssg-qdmbri does ALL the effort. Patient does none of the effort to complete the activity. Or, the assistance of 2 or more helpers is required for the patient to complete the activity. If activity was not attempted, code reason: 7-Patient Refused. 9-Not Applicable-not attempted and the patient did not perform the activity before the current illness, exacerbation or injury. 10-Not Attempted due to Environmental Limitations-(lack of equipment, weather restraints, etc.). 88-Not Attempted due to Medical Conditions or Safety Concerns. Roll Left to Right (QC): 6 Sit to Lying (QC): 6 Sit to Stand (QC): 6 Chair/Ycx-ws-Fdltk Xfer(QC): 6 Car Transfer (QC): 6 Gait Training Does the Patient Walk?: Yes Distance: 151', 256' Walk 10 feet (QC): 6 Walk 50 ft with 2 Turns(QC): 6 Walk 150 ft (QC): 6 Walking 10ft/uneven surface-QC: 6 Gait Assistive Device: Walker 4 Wheeled Wheelchair Training Does the Pt Use a Wheelchair?: No Wheel 50 ft with 2 turns (QC): 9 Wheel 150 ft (QC): 9 Type of Wheelchair: N/A Stair Training #of Steps: 8 1 Step (curb) (QC): 6 4 Steps (QC): 6 12 Steps (QC): 9 Balance Picking up an Object (QC): 6 ADL-Treatment Eating (QC): 6 Oral Hygiene (QC): 5 Shower/Bathe Self (QC): 7 (declined at this time) Upper Body Dressing (QC): 4 Lower Body Dressing (QC): 4 On/Off Footwear (QC): 4 (use of long handle shoe horn) Toileting Hygiene (QC): 4 Assessment/Plan Assessment and Plan Assess & Plan/Chief Complaint CHF myopathy Atrial fibrillation with RVR S/P MVR Chronic HFpEF HTN HLD T2DM COPD JF Depression Warfarin for anticoagulation Plan: Meds transferred from ICU Monitor INR Monitor HR Appreciate Dr Desai 10/12/2022: Supportive care Monitor closely 10/13/2022: Monitor INR Supportive care 10/14/2022: Monitor closely 10/15/2022: Discharge home Thursday10/16/2022: INR tomorrow Hold Coumadin tonight only (1) Myopathy DARI GUAJARDO DO Oct 16, 2022 10:32
--- NOTE | 2022-10-16 11:06 | Occupational Ther Daily Note ---
OT Current Status-Daily Note Subjective Pt alert, sitting on toilet. Pt agrees to therapy. No c/o pain at beginning of session, at end of session pt c/o 7/10 pain nrsg brought pain meds. Mental Status/Objective Patient Orientation: Person, Place, Time, Situation ADL-Treatment Using 4WW, pt is independent with gathering supplies. Independent with toileting. Independently with shower using shower bench, grabbar and hand held shower. Independent with UBD, LBD and footwear. Pt will have bed cane, wedge pillow and long handle shoe horn at home. Independent with eating. Independent standing at sink to complete oral care and grooming. After session, pt lying in bed with call light/phone in reach. All needs met in room. Therapy Code Descriptions/Definitions Functional [place] Measure: 0=Not Assessed/NA 4=Minimal Assistance 1=Total Assistance 5=Supervision or Setup 2=Maximal Assistance 6=Modified [place] 3=Moderate Assistance 7=Complete IndependenceSCALE: Activities may be completed with or without assistive devices. 5-Owzlwniejv-vhxnxjd completes the activity by him/herself with no assistance from a helper. 5-Set-up or Clean-up Assistance-helper sets up or cleans up; patient completes activity. [place] assists only prior to or following the activity. 4-Supervision or Touching Assistance-helper provides verbal cues and/or touching/steadying and/or contact guard assistance as patient completes activity. Assistance may be provided throughout the activity or intermittently. 3-Partial/Moderate Assistance-helper does LESS THAN HALF the effort. [place] lifts, holds or supports trunk or limbs, but provides less than half the effort. 2-Substantial/Maximal Assistance-helper does MORE THAN HALF the effort. [place] lifts or holds trunk or limbs and provides more than half the effort. 9-Aywbsomep-voqeru does ALL the effort. Patient does none of the effort to complete the activity. Or, the assistance of 2 or more helpers is required for the patient to complete the activity. If activity was not attempted, code reason: 7-Patient Refused. 9-Not Applicable-not attempted and the patient did not perform the activity before the current illness, exacerbation or injury. 10-Not Attempted due to Environmental Limitations-(lack of equipment, weather restraints, etc.). 88-Not Attempted due to Medical Conditions or Safety Concerns. Eating (QC): 6 Oral Hygiene (QC): 6 Shower/Bathe Self (QC): 6 Upper Body Dressing (QC): 6 Lower Body Dressing (QC): 6 On/Off Footwear: 6 Toileting Hygiene (QC): 6 Toilet Transfer (QC): 6 Pt takes increased time to complete all tasks for recovery breaks due to fatigue and pain. Nrsg aware. BIMS CAM BIMS Expression of Ideas and Wants: Without Difficulty Understanding Verbal Content: Understands Brief Interview/Mental Status: Yes IRF ALLEN BIMS: IRF ALLEN BIMS Response (Comments) Value Repitition of Three Words Three 3 Recalls Socks Yes, No Cue Required 2 Recalls Blue Yes, No Cue Required 2 Recalls Bed Yes, No Cue Required 2 Year Correct 3 Month Accurate Within 5 Days 2 Day Correct 1 Total 15 Patient Normally Able to Recal: Current Session, Location of own room, Staff Names and faces, That he/she in a hsp Should Staff Asses. Mental St.: No CAM Mental Status Change/Baseline: 0 Inattention: 0 Disorganized thinkin Altered level of consciousness: 0 OT Short Term Goals Short Term Goals Time Frame: Oct 17, 2022 Toileting hygiene: 5 Shower/bathe self: 5 Upper body dressin Lower body dressin OT Snf Goals Family Counselor Goals Time Frame: Oct 20, 2022 Acute change in mental status: 0 Inattention: 0 Disorganized thinkin Altered level of consciousness: 0 Oral Hygiene (QC): 6 (met) Toileting Hygiene (QC): 6 (met) Shower/Bathe Self (QC): 6 (met) Upper Body Dressing (QC): 6 (met) Lower Body Dressing (QC): 6 (met) On/Off Footwear (QC): 6 (met) 1=Demonstrate adherence to instructed precautions during ADL tasks. 2=Patient will verbalize/demonstrate understanding of assistive devices/modifications for ADL. 3=Patient will improve strength/tolerance for activity to enable patient to perform ADL's. OT Education/Plan Problem List/Assessment Assessment: Decreased Activ Tolerance, Decreased UE Strength, Impaired Self- Care Skills Discharge Recommendations Plan/Recommendations: Continue POC Treatment Plan/Plan of Care Patient would benefit from OT for education, treatment and training to promote independence in ADL's, mobility, safety and/or upper extremity function for ADL's. Plan of Care: ADL Retraining, Concurrent Therapy, Functional Mobility, Group Exercise/Act as Ind, UE Funct Exercise/Act Treatment Duration: Oct 20, 2022 Frequency: At least 5 of 7 days/Wk (IRF) Estimated Hrs Per Day: 1.5 hours per day Agreement: Yes Rehab Potential: Good Time Start Time: 10:30 Stop Time: 12:00 DATE: Oct 16, 2022 Total Time Billed (hr/min): 90 Billed Treatment Time 1 visit-ADL RUSSEL BROWN Oct 16, 2022 11:06
[2022-10-16 20:39] VITALS: BP 92/51
--- NOTE | 2022-10-17 05:04 | Discharge Summary ---
Diagnosis/Chief Complaint Date of Admission Oct 11, 2022 at 13:35 Date of Discharge Discharge Date: Oct 17, 2022 Discharge Diagnosis CHF myopathy Atrial fibrillation with RVR S/P MVR Chronic HFpEF HTN HLD T2DM COPD JF Depression Warfarin for anticoagulation Plan: Meds transferred from ICU Monitor INR Monitor HR Appreciate Dr Desai 10/12/2022: Supportive care Monitor closely 10/13/2022: Monitor INR Supportive care 10/14/2022: Monitor closely 10/15/2022: Discharge home Thursday10/16/2022: INR tomorrow Hold Coumadin tonight only Discharge Summary Discharge Physical Examination Allergies: Coded Allergies: No Allergy Information Available (Unverified , 05/23/21) Vitals & I&Os Vital Signs Date Time Temp Pulse Resp B/P (MAP) Pulse Ox O2 Delivery O2 Flow Rate FiO2 10/17/22 10:25 10/17/22 07:50 35.9 90 18 95 Room Air 10/15/22 20:31 2.00 General Appearance: Alert, Oriented X3, Cooperative Respiratory: Clear to Auscultation Cardiovascular: Regular Rate Psych/Mental Status: Mental Status NL Hospital Course Was the Problem List Reviewed?: Yes Uneventful course after she was transferred from ARU to ICU 2nd day on ARU for AF RVR then was readmitted and had converted to NSR. Patient was discouraged but she was able to regain nearly baseline function after intense therapy and INR was therapeutic at time of DC and she was ready for home. Home O2 at night ordered and she needs sleep study. Labs (last 24 hrs) Laboratory Tests 10/11/22 15:42: Glucometer 108 10/12/22 05:40: White Blood Count 14.1H, Red Blood Count 3.36L, Hemoglobin 8.8L, Hematocrit 30L, Mean Corpuscular Volume 90, Mean Corpuscular Hemoglobin 26, Mean Corpuscular Hemoglobin Concent 29L, Red Cell Distribution Width 26.9H, Platelet Count 300, Mean Platelet Volume 8.8L, Immature Granulocyte % (Auto) 1, Neutrophils (%) (Auto) 73, Lymphocytes (%) (Auto) 13, Monocytes (%) (Auto) 7, Eosinophils (%) (Auto) 5, Basophils (%) (Auto) 1, Neutrophils # (Auto) 10.3H, Lymphocytes # (Auto) 1.8, Monocytes # (Auto) 1.0, Eosinophils # (Auto) 0.7H, Basophils # (Auto) 0.2H, Immature Granulocyte # (Auto) 0.1, Neutrophils % (Manual) 73, Lymphocytes % (Manual) 18, Monocytes % (Manual) 5, Eosinophils % (Manual) 4, Hypochromasia SLIGHT, Anisocytosis SLIGHT, Prothrombin Time 29.3H, INR Comment 2.8H, Sodium Level 136, Potassium Level 4.7, Chloride Level 100, Carbon Dioxide Level 26, Anion Gap 10, Blood Urea Nitrogen 28H, Creatinine 0.91, Estimat Glomerular Filtration Rate 71, BUN/Creatinine Ratio 31, Glucose Level 103, Calcium Level 9.2, Corrected Calcium 9.8, Total Bilirubin 0.6, Aspartate Amino Transf (AST/SGOT) 29, Alanine Aminotransferase (ALT/SGPT) 18, Alkaline Phosphatase 78, Total Protein 6.5, Albumin 3.3 10/12/22 12:12: Glucometer 101 10/12/22 12:13: Glucometer 104 10/12/22 17:10: Glucometer 105 10/12/22 20:55: Glucometer 92 10/13/22 05:35: Glucometer 101 10/13/22 12:21: Glucometer 111H 10/13/22 17:01: Glucometer 99 10/13/22 21:43: Glucometer 125H 10/14/22 06:23: White Blood Count 11.7H, Red Blood Count 3.40L, Hemoglobin 8.9L, Hematocrit 31L, Mean Corpuscular Volume 90, Mean Corpuscular Hemoglobin 26, Mean Corpuscular Hemoglobin Concent 29L, Red Cell Distribution Width 27.0H, Platelet Count 273, Mean Platelet Volume 8.8L, Immature Granulocyte % (Auto) 0, Neutrophils (%) (Auto) 69, Lymphocytes (%) (Auto) 15, Monocytes (%) (Auto) 10, Eosinophils (%) (Auto) 6, Basophils (%) (Auto) 1, Neutrophils # (Auto) 8.0H, Lymphocytes # (Auto) 1.7, Monocytes # (Auto) 1.1H, Eosinophils # (Auto) 0.6H, Basophils # (Auto) 0.1, Immature Granulocyte # (Auto) 0.1, Prothrombin Time 32.3H, INR Comment 3.2H, Sodium Level 136, Potassium Level 4.6, Chloride Level 98, Carbon Dioxide Level 28, Anion Gap 10, Blood Urea Nitrogen 21H, Creatinine 0.91, Estimat Glomerular Filtration Rate 71, BUN/Creatinine Ratio 23, Glucose Level 106H, Calcium Level 9.3, Corrected Calcium 9.9, Total Bilirubin 0.6, Aspartate Amino Transf (AST/SGOT) 32, Alanine Aminotransferase (ALT/SGPT) 19, Alkaline Phosphatase 79, Total Protein 6.4, Albumin 3.3 10/14/22 11:35: Glucometer 100 10/14/22 15:48: Glucometer 103 10/14/22 21:09: Glucometer 117H 10/15/22 05:08: Glucometer 95 10/15/22 06:10: Prothrombin Time 31.0H, INR Comment 3.0H 10/15/22 11:16: Glucometer 85 10/15/22 16:08: Glucometer 100 10/15/22 20:22: Glucometer 124H 10/16/22 05:55: Prothrombin Time 32.8H, INR Comment 3.3H 10/16/22 05:57: Glucometer 92 10/16/22 11:20: Glucometer 116H 10/16/22 16:02: Glucometer 111H 10/16/22 20:43: Glucometer 100 10/17/22 05:36: Prothrombin Time 31.0H, INR Comment 3.0H 10/17/22 05:45: Glucometer 90 Pending Labs Laboratory Tests 10/11/22 15:42: Glucometer 108 10/12/22 05:40: White Blood Count 14.1, Red Blood Count 3.36, Hemoglobin 8.8, Hematocrit 30, Mean Corpuscular Volume 90, Mean Corpuscular Hemoglobin 26, Mean Corpuscular Hemoglobin Concent 29, Red Cell Distribution Width 26.9, Platelet Count 300, Mean Platelet Volume 8.8, Immature Granulocyte % (Auto) 1, Neutrophils (%) (Auto) 73, Lymphocytes (%) (Auto) 13, Monocytes (%) (Auto) 7, Eosinophils (%) (Auto) 5, Basophils (%) (Auto) 1, Neutrophils # (Auto) 10.3, Lymphocytes # (Auto) 1.8, Monocytes # (Auto) 1.0, Eosinophils # (Auto) 0.7, Basophils # (Auto) 0.2, Immature Granulocyte # (Auto) 0.1, Neutrophils % (Manual) 73, Lymphocytes % (Manual) 18, Monocytes % (Manual) 5, Eosinophils % (Manual) 4, Hypochromasia SLIGHT, Anisocytosis SLIGHT, Prothrombin Time 29.3, INR Comment 2.8, Sodium Level 136, Potassium Level 4.7, Chloride Level 100, Carbon Dioxide Level 26, Anion Gap 10, Blood Urea Nitrogen 28, Creatinine 0.91, Estimat Glomerular Filtration Rate 71, BUN/Creatinine Ratio 31, Glucose Level 103, Calcium Level 9.2, Corrected Calcium 9.8, Total Bilirubin 0.6, Aspartate Amino Transf (AST/SGOT) 29, Alanine Aminotransferase (ALT/SGPT) 18, Alkaline Phosphatase 78, Total Protein 6.5, Albumin 3.3 10/12/22 12:12: Glucometer 101 10/12/22 12:13: Glucometer 104 10/12/22 17:10: Glucometer 105 10/12/22 20:55: Glucometer 92 10/13/22 05:35: Glucometer 101 10/13/22 12:21: Glucometer 111 10/13/22 17:01: Glucometer 99 10/13/22 21:43: Glucometer 125 10/14/22 06:23: White Blood Count 11.7, Red Blood Count 3.40, Hemoglobin 8.9, Hematocrit 31, Mean Corpuscular Volume 90, Mean Corpuscular Hemoglobin 26, Mean Corpuscular Hemoglobin Concent 29, Red Cell Distribution Width 27.0, Platelet Count 273, Mean Platelet Volume 8.8, Immature Granulocyte % (Auto) 0, Neutrophils (%) (Auto) 69, Lymphocytes (%) (Auto) 15, Monocytes (%) (Auto) 10, Eosinophils (%) (Auto) 6, Basophils (%) (Auto) 1, Neutrophils # (Auto) 8.0, Lymphocytes # (Auto) 1.7, Monocytes # (Auto) 1.1, Eosinophils # (Auto) 0.6, Basophils # (Auto) 0.1, Immature Granulocyte # (Auto) 0.1, Prothrombin Time 32.3, INR Comment 3.2, Sodium Level 136, Potassium Level 4.6, Chloride Level 98, Carbon Dioxide Level 28, Anion Gap 10, Blood Urea Nitrogen 21, Creatinine 0.91, Estimat Glomerular Filtration Rate 71, BUN/Creatinine Ratio 23, Glucose Level 106, Calcium Level 9.3, Corrected Calcium 9.9, Total Bilirubin 0.6, Aspartate Amino Transf (AST/SGOT) 32, Alanine Aminotransferase (ALT/SGPT) 19, Alkaline Phosphatase 79, Total Protein 6.4, Albumin 3.3 10/14/22 11:35: Glucometer 100 10/14/22 15:48: Glucometer 103 10/14/22 21:09: Glucometer 117 10/15/22 05:08: Glucometer 95 10/15/22 06:10: Prothrombin Time 31.0, INR Comment 3.0 10/15/22 11:16: Glucometer 85 10/15/22 16:08: Glucometer 100 10/15/22 20:22: Glucometer 124 10/16/22 05:55: Prothrombin Time 32.8, INR Comment 3.3 10/16/22 05:57: Glucometer 92 10/16/22 11:20: Glucometer 116 10/16/22 16:02: Glucometer 111 10/16/22 20:43: Glucometer 100 10/17/22 05:36: Prothrombin Time 31.0, INR Comment 3.0 10/17/22 05:45: Glucometer 90 Discharge Home Medications: Active Scripts Active Tramadol HCl 50 Mg Tablet 50 Mg PO Q6HR PRN Diltiazem 24Hr ER (Diltiazem HCl) 120 Mg Cap.er.24h 120 Mg PO DAILY Amiodarone HCl 200 Mg Tablet 200 Mg PO DAILY Warfarin Sodium 2.5 Mg Tablet 2.5 Mg PO DAILY@1800 Warfarin Sodium 4 Mg Tablet 4 Mg PO DAILY@1800 30 Days Bumetanide 2 Mg Tablet 2 Mg PO BID Atorvastatin Calcium 20 Mg Tablet 20 Mg PO HS Aspirin EC (Aspirin) 81 Mg Tablet.dr 81 Mg PO DAILY K-Tab ER (Potassium Chloride) 10 Meq Tablet.er 10 Meq PO BID Percocet 5-325 mg Tablet (Oxycodone HCl/Acetaminophen) 1 Each Tablet 1-2 Tab PO Q6H PRN MDD 6 TABS Reported Invokamet Xr 150-1,000 mg Tab (Canagliflozin/Metformin HCl) 150 Mg-1,000 Mg Tab.bp.24h 1 Ea PO DAILY Viibryd (Vilazodone Hydrochloride) 40 Mg Tablet 40 Mg PO DAILY Omeprazole 20 Mg Tab.rap.dr 20 Mg PO DAILY TAKE BEFORE BREAKFAST Trulicity (Dulaglutide) 0.75 Mg/0.5 Ml Pen.injctr 0.75 Mg SQ WEEK Symbicort 80-4.5 Mcg Inhaler (Budesonide/Formoterol Fumarate) 80 Mcg-4.5 Mcg/Actuation Hfa.aer.ad 2 Puff IH BID Vitamin C (Ascorbic Acid) 1,000 Mg Tablet 1,000 Mg PO DAILY Ventolin Hfa (Albuterol Sulfate) 90 Mcg Hfa.aer.ad 1-2 Puff INH TID PRN Senna-S Tablet (Sennosides/Docusate Sodium) 8.6 Mg-50 Mg Tablet 2 Each PO BID Tylenol Extra Strength (Acetaminophen) 500 Mg Tablet 1,000 Mg PO Q6H Instructions to patient/family Please see electronic discharge instructions given to patient. Diagnosis/Problems Diagnosis/Problems (1) Myopathy DARI GUAJARDO DO Oct 17, 2022 05:04
[2022-10-17] MEDS: inSUlin ASPART (NovoLOG) 1 UNIT/0.01 ML (CHARGE PER UNIT) SC SCH (05:51)
[2022-10-17] MEDS: BUMETANIDE 1 MG TABLET PO SCH (07:13)
[2022-10-17 07:50] VITALS: BP 123/58
[2022-10-17] MEDS: PANTOPRAZOLE 20 MG TABLET (PROTONIX) PO SCH (08:17)
[2022-10-17] MEDS: KCL 10 MEQ TAB (MICRO K) PO SCH (08:17)
[2022-10-17] MEDS: AMIODARONE 200 MG TABLET PO SCH (08:17)
[2022-10-17] MEDS: dilTIAZem120 MG (CARDIZEM CD) CAP PO SCH (08:17)
[2022-10-17] MEDS: FLUTICASONE/VILANTEROL 100 MCG 14'S (BREO) IH SCH (08:17)
[2022-10-17] MEDS: ASPIRIN enteric coated 81MG TABLET PO SCH (08:17)
[2022-10-17] MEDS: VIIBRYD 40 MG PO SCH (08:18)
[2022-10-17] MEDS: INVOKAMET PO SCH (08:18)
[2022-10-17] MEDS: DOCUSATE SODIUM 100 MG CAPSULE PO SCH (08:20)
[2022-10-17] MEDS: SENNA W/DOCUSATE (SENOKOT S) TABLET PO SCH (08:21)
[2022-10-17] MEDS: MAGIC MOUTHWASH, ADULT 155 ML BOTTLE PO SCH (08:21)
[2022-10-17] MEDS: MAGIC MOUTHWASH (ADULT) PO SCH ×4 (08:21)
[2022-10-17] MEDS: polyethylene glycoL POWDER 17 GM (MIRALAX) PACK PO SCH (08:21)
--- NOTE | 2022-10-17 15:21 | Therapy Team Discharge Summary ---
Therapy Discharge Summary Discharge Recommendations Date of Discharge Oct 17, 2022 at 09:50 Therapy D/C Recommendations: Home w/ Family Support, Other, See Comments (cardiac rehab ) Physical Therapy Pt is s/p MVR on 09/30/2022; 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 At [facility], pt was Ind with no AD and driving. Pt just recently started using a 4WW, secondary to B LE and hip weakness. 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 Pt has a 4WW, SC, and BSC. Upon PT eval, pt was CGA for all aspects of functional mobility with the 4WW. PT focused on B LE strength, endurance, walking, safety/balance, functional mobility, and Ind. Pt progressed well with PT and and met all set goals. Pt d/c from ARU on 10/17/2022 to home with family assistance and cardiac rehab. D/C from PT at this time. Roll Left to Right (QC): 6 Sit to Lying (QC): 6 Lying to Sitting/Side of Bed(Q: 6 Sit to Stand (QC): 6 Chair/Zst-bf-Dzeov Xfer(QC): 6 Toilet Transfer (QC): 6 Car Transfer (QC): 6 Does the Patient Walk: Yes Mode of Locomotion: Walk Anticipated Mode of Locomotion: Walk Walk 10 feet (QC): 6 Walk 50 ft with 2 Turns(QC): 6 Walk 150 ft (QC): 6 Walking 10ft on uneven surface: 6 Gait Assistive Device: Walker 4 Wheeled Does the Pt Use a Wheelchair: No Wheel 50 ft with 2 turns (QC): 9 Wheel 150 ft (QC): 9 Type of Wheelchair: N/A #of Steps: 8 1 Step (curb) (QC): 6 4 Steps (QC): 6 12 Steps (QC): 9 Walking Assistive Device: Walker Balance Sitting Static: Normal Balance Sitting Dynamic: Normal Balance-Standing Static: Good Picking up an Object (QC): 6 Occupational Therapy Decreased Activ Tolerance, Decreased UE Strength, Impaired Self-Care Skills Eating (QC): 6 Oral Hygiene (QC): 6 Shower/Bathe Self (QC): 6 Upper Body Dressing (QC): 6 Lower Body Dressing (QC): 6 On/Off Footwear (QC): 6 Toileting Hygiene (QC): 6 PT Nursing Home Goals Nursing Home Goals PT Job Analyst Goals Time Frame: Oct 18, 2022 Roll Left to Right (QC): 6 (Pt will be Mod I with functional mobility with the 4WW, in order to be at PLOF and safely return home, alone. ) Sit to Lying (QC): 6 (Pt will be Mod I with functional mobility with the 4WW, in order to be at PLOF and safely return home, alone. ) Lying-Sitting on Side/Bed(QC): 6 (Pt will be Mod I with functional mobility with the 4WW, in order to be at PLOF and safely return home, alone. ) Sit to Stand (QC): 6 (Pt will be Mod I with functional mobility with the 4WW, in order to be at PLOF and safely return home, alone. ) Chair/Nun-ri-Snghi Xfer(QC): 6 (Pt will be Mod I with functional mobility with the 4WW, in order to be at PLOF and safely return home, alone. ) Toilet/Commode Transfer (QC): 6 (Pt will be Mod I with functional mobility with the 4WW, in order to be at PLOF and safely return home, alone. ) Car Transfer (QC): 6 (Pt will be Mod I with functional mobility with the 4WW, in order to be at PLOF and safely return home, alone. ) Does the Patient Walk: Yes Walk 10 feet (QC): 6 (Pt will be Mod I with functional mobility with the 4WW, in order to be at PLOF and safely return home, alone. ) Walk 10ft-Uneven Surface(QC): 6 (Pt will be Mod I with functional mobility with the 4WW, in order to be at PLOF and safely return home, alone. ) Walk 50ft with 2 Turns (QC): 6 (Pt will be Mod I with functional mobility with the 4WW, in order to be at PLOF and safely return home, alone. ) Walk 150 ft (QC): 6 (Pt will be Mod I with functional mobility with the 4WW, in order to be at PLOF and safely return home, alone. ) Does the Pt use WC or Scooter?: No Wheel 50 feet with 2 turns (QC: 9 Type: N/A Wheel 150 feet: 9 Type: N/A 1 Step (curb) (QC): 6 (Pt will be Mod I with functional mobility with the 4WW, in order to be at PLOF and safely return home, alone. ) 4 Steps (QC): 6 (Pt will be Mod I with functional mobility with the 4WW, in order to be at PLOF and safely return home, alone. ) 12 Steps (QC): 9 (Pt has 3 steps to enter/exit home ) Picking up an Object (QC): 6 (Pt will be Mod I with functional mobility with the 4WW, in order to be at PLOF and safely return home, alone. ) OT Nursing Home Goals Job Analyst Goals Time Frame: Oct 20, 2022 Acute change in mental status: 0 Inattention: 0 Disorganized thinkin Altered level of consciousness: 0 Oral Hygiene (QC): 6 (met) Toileting Hygiene (QC): 6 (met) Shower/Bathe Self (QC): 6 (met) Upper Body Dressing (QC): 6 (met) Lower Body Dressing (QC): 6 (met) On/Off Footwear (QC): 6 (met) 1=Demonstrate adherence to instructed precautions during ADL tasks. 2=Patient will verbalize/demonstrate understanding of assistive devices/modifications for ADL. 3=Patient will improve strength/tolerance for activity to enable patient to perform ADL's. Speech Nursing Home Goals Job Analyst Goals 1. Pt to complete medication and money management with 100% accuracy independently. 2. Tolerate least restrictive diet consistency with no s/sx of aspiration. SUZETTE DOSHI PT Oct 17, 2022 15:21
--- NOTE | 2022-10-20 15:16 | Therapy Team Discharge Summary ---
Therapy Discharge Summary Discharge Recommendations Date of Discharge Oct 17, 2022 at 09:50 Therapy D/C Recommendations: Home w/ Family Support, Other, See Comments (cardiac rehab ) Physical Therapy Roll Left to Right (QC): 6 Sit to Lying (QC): 6 Lying to Sitting/Side of Bed(Q: 6 Sit to Stand (QC): 6 Chair/Baf-ng-Ilaaa Xfer(QC): 6 Toilet Transfer (QC): 6 Car Transfer (QC): 6 Does the Patient Walk: Yes Mode of Locomotion: Walk Anticipated Mode of Locomotion: Walk Walk 10 feet (QC): 6 Walk 50 ft with 2 Turns(QC): 6 Walk 150 ft (QC): 6 Walking 10ft on uneven surface: 6 Gait Assistive Device: Walker 4 Wheeled Does the Pt Use a Wheelchair: No Wheel 50 ft with 2 turns (QC): 9 Wheel 150 ft (QC): 9 Type of Wheelchair: N/A #of Steps: 8 1 Step (curb) (QC): 6 4 Steps (QC): 6 12 Steps (QC): 9 Walking Assistive Device: Walker Balance Sitting Static: Normal Balance Sitting Dynamic: Normal Balance-Standing Static: Good Picking up an Object (QC): 6 Occupational Therapy Pt is s/p MVR on 09/30/2022; 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 At [facility], pt was Ind with no AD and driving. Pt just rece ntly started using a 4WW, secondary to B LE and hip weakness. 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 Pt has a 4WW, SC, and BSC.. Pt progressed well with OT and and met all set goals. Pt d/c from ARU on 10/17/2022 to home with family assistance and cardiac rehab. D/C from OT at this time. Decreased Activ Tolerance, Decreased UE Strength, Impaired Self-Care Skills Eating (QC): 6 Oral Hygiene (QC): 6 Shower/Bathe Self (QC): 6 Upper Body Dressing (QC): 6 Lower Body Dressing (QC): 6 On/Off Footwear (QC): 6 Toileting Hygiene (QC): 6 PT Nuclear Process Engineer Goals Detention Goals PT Nuclear Process Engineer Goals Time Frame: Oct 18, 2022 Roll Left to Right (QC): 6 (Pt will be Mod I with functional mobility with the 4WW, in order to be at PLOF and safely return home, alone. ) Sit to Lying (QC): 6 (Pt will be Mod I with functional mobility with the 4WW, in order to be at PLOF and safely return home, alone. ) Lying-Sitting on Side/Bed(QC): 6 (Pt will be Mod I with functional mobility wi th the 4WW, in order to be at PLOF and safely return home, alone. ) Sit to Stand (QC): 6 (Pt will be Mod I with functional mobility with the 4WW, in order to be at PLOF and safely return home, alone. ) Chair/Fhn-le-Jpyyh Xfer(QC): 6 (Pt will be Mod I with functional mobility with the 4WW, in order to be at PLOF and safely return home, alone. ) Toilet/Commode Transfer (QC): 6 (Pt will be Mod I with functional mobility with the 4WW, in order to be at PLOF and safely return home, alone. ) Car Transfer (QC): 6 (Pt will be Mod I with functional mobility with the 4WW, in order to be at PLOF and safely return home, alone. ) Does the Patient Walk: Yes Walk 10 feet (QC): 6 (Pt will be Mod I with functional mobility with the 4WW, in order to be at PLOF and safely return home, alone. ) Walk 10ft-Uneven Surface(QC): 6 (Pt will be Mod I with functional mobility with the 4WW, in order to be at PLOF and safely return home, alone. ) Walk 50ft with 2 Turns (QC): 6 (Pt will be Mod I with functional mobility with the 4WW, in order to be at PLOF and safely return home, alone. ) Walk 150 ft (QC): 6 (Pt will be Mod I with functional mobility with the 4WW, in order to be at PLOF and safely return home, alone. ) Does the Pt use WC or Scooter?: No Wheel 50 feet with 2 turns (QC: 9 Type: N/A Wheel 150 feet: 9 Type: N/A 1 Step (curb) (QC): 6 (Pt will be Mod I with functional mobility with the 4WW, in order to be at PLOF and safely return home, alone. ) 4 Steps (QC): 6 (Pt will be Mod I with functional mobility with the 4WW, in order to be at PLOF and safely return home, alone. ) 12 Steps (QC): 9 (Pt has 3 steps to enter/exit home ) Picking up an Object (QC): 6 (Pt will be Mod I with functional mobility with the 4WW, in order to be at PLOF and safely return home, alone. ) OT Nuclear Process Engineer Goals Detention Goals Time Frame: Oct 20, 2022 Acute change in mental status: 0 Inattention: 0 Disorganized thinkin Altered level of consciousness: 0 Oral Hygiene (QC): 6 (met) Toileting Hygiene (QC): 6 (met) Shower/Bathe Self (QC): 6 (met) Upper Body Dressing (QC): 6 (met) Lower Body Dressing (QC): 6 (met) On/Off Footwear (QC): 6 (met) 1=Demonstrate adherence to instructed precautions during ADL tasks. 2=Patient will verbalize/demonstrate understanding of assistive devices/modifications for ADL. 3=Patient will improve strength/tolerance for activity to enable patient to perform ADL's. Speech Nuclear Process Engineer Goals Nuclear Process Engineer Goals 1. Pt to complete medication and money management with 100% accuracy independent ly. 2. Tolerate least restrictive diet consistency with no s/sx of aspiration. MANOLO FRANCIS OT Oct 20, 2022 15:16
== END 2022-10-17 09:50 | disposition home or self-care (01) | DRG 92 ==
PROVIDERS: ADMIT Internal Medicine; ATTEND Internal Medicine
DX: G72.89 Other specified myopathies (principal); I50.32 Chronic diastolic (congestive) heart failure; I11.0 Hypertensive heart disease with heart failure; I48.0 Paroxysmal atrial fibrillation; T81.31XD Disruption of external operation (surgical) wound, not elsewhere classified, subsequent encounter; D63.1 Anemia in chronic kidney disease; E11.40 Type 2 diabetes mellitus with diabetic neuropathy, unspecified; E11.22 Type 2 diabetes mellitus with diabetic chronic kidney disease; N18.9 Chronic kidney disease, unspecified; E66.9 Obesity, unspecified; G47.33 Obstructive sleep apnea (adult) (pediatric); J44.9 Chronic obstructive pulmonary disease, unspecified; I25.10 Atherosclerotic heart disease of native coronary artery without angina pectoris; E78.00 Pure hypercholesterolemia, unspecified; K21.9 Gastro-esophageal reflux disease without esophagitis; F32.A Depression, unspecified; M19.90 Unspecified osteoarthritis, unspecified site; Z79.84 Long term (current) use of oral hypoglycemic drugs; Z79.85 Long-term (current) use of injectable non-insulin antidiabetic drugs; Z79.01 Long term (current) use of anticoagulants; Z95.2 Presence of prosthetic heart valve; Z87.891 Personal history of nicotine dependence; Z79.899 Other long term (current) drug therapy; Z79.82 Long term (current) use of aspirin; Z68.37 Body mass index [BMI] 37.0-37.9, adult
CPT/HCPCS: 36415; 80053; 82947; 85007; 85025; 85027; 85610; 94640; 94760; 94761